=== PATIENT | female | born 1940 | race Caucasian/White ===

== ENCOUNTER 2022-08-31 13:01 | Inpatient (IN) ==
[2022-08-31] MEDS ORDERED: IOPAMIDOL 100 ML BOTTLE IV ONE (13:02)
[2022-08-31] MEDS ORDERED: ONDANSETRON 4 MG/2 ML VIAL IV ONE (13:04)
[2022-08-31] MEDS ORDERED: LACTATED RINGERS 1,000 ML IV ONE ×2 (13:04→15:53)
[2022-08-31 13:31] LABS: POC Calcium, Ionized 1.19 (1.16-1.32); POC Creatinine 1.3 (0.6-1.2); POC Potassium 4.3 (3.3-5.1)
[2022-08-31 14:07] LABS: Basophils # (Auto) 0.03 K/mcL (0.00-0.30); Basophils % (Auto) 0.2 % (0.0-2.0); Eosinophils # (Auto) 0.17 K/mcL (0.00-0.70); Eosinophils % (Auto) 1.3 % (0.0-7.0); Hematocrit 42.2 % (34.1-44.9); Hemoglobin 13.7 g/dL (11.2-15.7); Lymphocytes # (Auto) 0.63 K/mcL (1.50-4.80); Lymphocytes % (Auto) 4.8 % (15.5-49.0); Mean Cell Volume 84.6 fL (80.0-100.0); Mean Corpuscular HGB Conc 32.5 g/dL (31.0-36.0); Mean Platelet Volume 9.9 fL (8.8-12.5); Monocytes # (Auto) 0.47 K/mcL (0.10-0.90); Monocytes % (Auto) 3.6 % (1.0-12.0); Neutrophils % (Auto) 89.5 % (38.0-78.0); Platelet Count 254 K/mcL (140-440); RBC 4.99 M/mcL (3.59-5.38); Red Cell Distribution Width 13.9 % (11.5-14.5); WBC 13.1 K/mcL (4.5-11.0)
[2022-08-31 14:30] LABS: ALT/SGPT 18 U/L (<40); AST/SGOT 49 U/L (<32); Alkaline Phosphatase 136 U/L (39-117); Bilirubin,Direct < 0.2 mg/dL (0-0.3); Bilirubin,Total 0.4 mg/dL (0.1-1.0); Globulin 3.8 gm/dL (2.2-3.7)
--- NOTE | 2022-08-31 15:29 | Cat Scan Report ---
INDICATION: diarrhea lower mary abd pain COMPARISON: None. TECHNIQUE: Axial images were obtained through the abdomen and pelvis. Sagittally and coronally reformatted images. 70 mL Isovue 370 injected intravenously. Oral contrast material was not administered FINDINGS: Lung bases:Negative. No pulmonary parenchymal nodule. No pleural fluid or pericardial fluid. There is mild cardiomegaly. Liver:Low density liver consistent with hepatic steatosis. No focal intrahepatic mass. Liver contour is smooth Gallbladder, bilary:No calcified gallstones. No gallbladder wall thickening. No dilated intra or extrahepatic bile ducts. Spleen:Borderline splenomegaly. Spleen measures 12.5 x 13.5 x 6.0 cm. No focal abnormality. Normal enhancement of splenic and portal veins Pancreas:No pancreatic mass. No peripancreatic abnormality Adrenal glands:Negative Kidneys,ureters,bladder:No solid renal mass. No hydronephrosis. No obstructing or nonobstructing calculi. No hydroureter. No ureteral calculus. No bladder calculus. Bladder wall appears thickened, especially inferiorly. A well-defined discrete mass is not identified but neoplasm is possible. Gastrointestinal:No detectable colonic mass. There is no diverticulitis. No evidence for significant constipation or impaction Negative small bowel. No mechanical small bowel obstruction. No bowel wall thickening. No focal abnormality. Negative stomach and duodenum. No focal abnormality. Appendix: The appendix is negative Vascular: Calcification of the abdominal aorta without abdominal aortic aneurysm. Superior mesenteric artery and celiac trunk are normal. Normal opacification of the inferior mesenteric artery Lymphatic:No retroperitoneal or mesenteric adenopathy Mesentery, peritoneum: No free intraperitoneal fluid. No mesenteric or retroperitoneal mass. No intra-abdominal abscess. Reproductive:Uterus is neutral flexed. There are bilateral ovarian cysts. Right ovarian cyst measures 2.7 cm maximally. Left ovarian cyst measures 4.0 cm maximally. No detectable solid lesions. No localized or free fluid. Pelvic ultrasound is recommended. Musculoskeletal:No lumbar compression fractures. There is multilevel degenerative disc disease. Sacrum is negative. No insufficiency fracture. No pelvic or hip fracture. Tiny umbilical hernia containing only fat IMPRESSION: 1. Bilateral ovarian cysts. This is considered abnormal for age and pelvic ultrasound is recommended 2. Hepatic steatosis 3. Borderline splenomegaly 4. Thickened bladder wall, especially bladder floor. A discrete polypoid mass is not identified but neoplasm is not excluded The exam was performed using radiation dose optimization techniques including, but not limited to, automated exposure control, adjustment of the mA and/or kV according to patient size and use of iterative reconstruction technique. Interpreted and Authenticated by: Milo Schreiber 08/31/22
--- NOTE | 2022-08-31 16:12 | Emergency Department Note ---
HPI General Chief complaint: Nausea/Vomiting/Diarrhea Stated complaint: N/v/d Time Seen by Provider: 08/31/22 13:03 Source: EMS Mode of arrival: EMS Limitations: other History of Present Illness HPI Narrative: Narrative: This is a 81-year-old female with a history of dementia as she is cared for by her ex-. The patient presents with about 2 hours of nausea vomiting and diarrhea. The vomit and diarrhea is reportedly nonbloody. History is obtained from the patient but also her ex- who is at the bedside. Patient was given a small bolus of about 250 cc normal saline and 80 mg of Zofran by EMS. Patient continued to have diarrhea upon arrival. Patient denies any recent antibiotic use. There is no sick contacts there is no concerning food exposures. Ex- is without any symptoms. Related Data Home Medications Medication Instructions Recorded Confirmed nystatin 100,000 unit/gram topical 1 applic topical BID 10/03/19 08/15/22 cream acetaminophen 325 mg tablet 650 mg PO Q4H PRN 01/05/21 08/15/22 aspirin 81 mg tablet,delayed 81 mg PO QDAY 01/05/21 08/31/22 release magnesium oxide 400 mg PO QAM 01/05/21 08/15/22 Lactobacillus rhamnosus GG PO QDAY 05/10/21 08/15/22 [Culturelle] ketoconazole 2 % topical cream 1 applic topical PRN 05/10/21 08/15/22 gabapentin 300 mg capsule 300 mg PO HS 01/05/22 08/31/22 losartan 25 mg tablet 12.5 mg PO 08/31/22 Previous Rx's Medication Instructions Recorded pramipexole 0.25 mg tablet See Rx Instructions .Route 05/25/21 .COMPLEX #120 tabs estradiol 0.01% (0.1 mg/gram) 0.25 g vaginal QDAY #42.5 grams 06/14/21 vaginal cream miconazole nitrate 2 % topical 1 applic topical BID PRN interigo 06/15/21 cream (Emiliano Antifungal) 3 months #42.5 grams Trelegy Ellipta 200 mcg-62.5 1 inh inhalation Q24H #60 ea 04/11/22 mcg-25 mcg powder for inhalation (lyaikcyqtke-lhktolalb-rdulaobw) albuterol sulfate 90 mcg/actuation 2 puff inhalation Q6H PRN 04/11/22 aerosol inhaler (ProAir HFA) shortness of breath or wheezing #8.5 grams docusate sodium 100 mg capsule 100 mg PO BID #60 caps 05/22/22 (Dulcolax Stool Softener (docusate)) polyethylene glycol 3350 17 4 g PO ONCE #510 grams 05/22/22 gram/dose oral powder (Miralax) amitriptyline 50 mg tablet 50 mg PO QHS #90 tabs 06/19/22 montelukast 10 mg tablet 10 mg PO QPM #90 tabs 07/11/22 pravastatin 10 mg tablet 10 mg PO QDAY #90 tabs 07/11/22 Allergies Allergy/AdvReac Type Severity Reaction Status Date / Time Penicillins Allergy Unknown Unknown Verified 08/31/22 21:36 Sulfa (Sulfonamide Allergy Unknown Unknown Verified 08/31/22 21:36 Antibiotics) Review of Systems ROS ROS Narrative: Narrative: All systems ED: reviewed and negative except as stated. PFSH Narrative Patient History Narrative: Narrative: Medical/Surgical/Family History All Active Problems (Updated 09/01/22 @ 01:22 by Aryan Grajeda MD) Gastroenteritis (Acute) Regular sinus tachycardia (Acute) Constipation (Acute) Asthma-COPD overlap syndrome (Chronic) Recurrent urinary tract infection (Acute) Muscle weakness (Acute) Dizziness (Acute) Dementia (Chronic) Chronic retention of urine (Chronic) Spinal stenosis in cervical region (Chronic) Hypomagnesemia (Chronic) Bilateral leg cramps (Chronic) Muscle pain (Chronic) Abnormal kidney function study (Chronic) Post-menopausal (Chronic) Dementia (Chronic) Hyperlipidemia (Chronic) Type 2 diabetes mellitus (Chronic) Risk for falls (Chronic) Peripheral vascular disease (Chronic) Hypertensive disorder (Chronic) Urine retention (Chronic) Bacteriuria (Chronic) Multiple sclerosis (Chronic) Restless leg syndrome (Chronic) Benign essential HTN (Chronic) Sensation of cold in lower extremity (Chronic) Candidal intertrigo (Chronic) Eczematous dermatitis (Chronic) Kidney disease, chronic, stage III (GFR 30-59 ml/min) (Chronic) Encounter for immunization (Chronic) Urinary frequency (Chronic) UTI (urinary tract infection) (Chronic) Lower extremity edema (Chronic) Discoloration of skin of toe (Chronic) History of seizures (Chronic 06/30/16) Asthma (Chronic) Hay fever (Chronic) Nervousness (Chronic) Medical History Abnormal kidney function study Asthma Asthma-COPD overlap syndrome Bacteriuria Benign essential HTN Bilateral leg cramps Candidal intertrigo Chronic retention of urine Dementia Discoloration of skin of toe Eczematous dermatitis Encounter for immunization Hay fever History of seizures (06/30/16) Life support to stop seizure Hyperlipidemia Hypertensive disorder Hypomagnesemia Kidney disease, chronic, stage III (GFR 30-59 ml/min) Lower extremity edema Multiple sclerosis Muscle pain Nervousness Peripheral vascular disease Post-menopausal Restless leg syndrome Risk for falls Sensation of cold in lower extremity Spinal stenosis in cervical region Type 2 diabetes mellitus Urinary frequency Urine retention UTI (urinary tract infection) Surgical History History of tonsillectomy and adenoidectomy Family History Grandmother Chronic mental illness Maternal Mother , Age 89 Heart disease Essential hypertension Social History Smoking Status: Former smoker Alcohol Intake Frequency: does not drink Substance Use: does not use Exam Narrative Narrative: Narrative: Vital signs noted General: Awake. Alert. No distress. HEENT: NCAT PERRL EOMI. No conjunctivitis. Membranes moist. Neck: Supple, trachea midline Cardiovascular: Tachycardic. No murmur. No rubs. No gallops. Respiratory: No respiratory distress. Breath sounds equal. Lungs clear. Gastrointestinal: Soft. No tenderness Musculoskeletal: No pain. No soft tissue swelling. Good ROM. No signs injury Skin: Warm. Dry. No rash Neurologic: Alert and oriented x3 moves all extremities equally and fully, speech is fluent face is symmetric General Limitations: other Course Vital Signs Vital signs: Vital Signs Temperature 99.4 F H 08/31/22 13:02 Pulse Rate 118 H 08/31/22 13:02 Respiratory Rate 18 08/31/22 13:02 Blood Pressure 113/82 08/31/22 13:02 Pulse Oximetry (%) 94 08/31/22 13:02 Oxygen Delivery Method Room Air 08/31/22 13:02 Temperature 99.0 F 08/31/22 23:10 Pulse Rate 105 H 08/31/22 23:10 Respiratory Rate 20 08/31/22 23:10 Blood Pressure 112/67 08/31/22 23:10 Pulse Oximetry (%) 97 08/31/22 23:10 Oxygen Delivery Method Room Air 08/31/22 23:10 MDM MDM Narrative Medical decision making narrative: Narrative: Patient presents to the emergency department with nausea vomiting diarrhea. She is tachycardic upon arrival she is otherwise conversant does have a history of dementia. Differential diagnosis includes but is not limited to gastroenteritis, C. difficile although no real exposures, food poisoning. Patient was given 2 L of IV fluid she is given Zofran nursing staff cleaned. CBC does show slight leukocytosis with left shift. CMP shows normal sodium BUN is 23 and creatinine is 1.3 it does look like patient has chronic kidney disease. CT scan per my interpretation does not reveal any acute surgical process in the abdomen pelvis however patient was noted by radiology to have bilateral ovarian cysts and thickened bladder wall. Findings concerning for neoplasm. These findings were made known to the patient's ex- who helps care for her. Ultimately he has strong concerns about being able to care for her at baseline and given her current state of diarrhea he has his own health issues and has difficulty cleaning her up and transferring her to the toilet. I did speak with the hospitalist who would be willing to observe the patient it was felt that patient did not necessarily meet admission criteria. My biggest concern was patient's persistent tachycardia and diarrhea. EKG per my interpretation shows sinus tachycardia without acute ischemia. Did review patient's prior most recent outpatient note heart rate at that time was in the 70s. I did talk with the ex- and he states that the patient has previously lived at [facility] he would be okay with her being transferred to a care facility. Lab Data 08/31/22 13:27 Labs: Lab Results 08/31/22 08/31/22 08/31/22 Range/Units 13:27 13:27 13:28 WBC 13.1 H (4.5-11.0) K/mcL RBC 4.99 (3.59-5.38) M/mcL Hgb 13.7 (11.2-15.7) g/dL Hct 42.2 (34.1-44.9) % POC Hct 43.0 (36-48) MCV 84.6 (80.0-100.0) fL MCH 27.5 (26.0-34.0) pg MCHC 32.5 (31.0-36.0) g/dL RDW 13.9 (11.5-14.5) % Plt Count 254 (140-440) K/mcL MPV 9.9 (8.8-12.5) fL Immature Gran % (Auto) 0.6 H (0.0-0.5) % Neut % (Auto) 89.5 H (38.0-78.0) % Lymph % (Auto) 4.8 L (15.5-49.0) % [place] % (Auto) 3.6 (1.0-12.0) % Eos % (Auto) 1.3 (0.0-7.0) % Baso % (Auto) 0.2 (0.0-2.0) % Lymph # (Auto) 0.63 L (1.50-4.80) K/mcL [place] # (Auto) 0.47 (0.10-0.90) K/mcL Eos # (Auto) 0.17 (0.00-0.70) K/mcL Baso # (Auto) 0.03 (0.00-0.30) K/mcL Immature Gran # 0.08 H (0.00-0.05) K/mcl Absolute Neutrophils 11.74 H (1.80-8.00) K/mcL POC Sodium 141 (133-145) POC Potassium 4.3 (3.3-5.1) POC Chloride 101 (96-108) POC Total CO2 26.0 (22-30) POC BUN 23 H (6-20) POC Creatinine 1.3 H (0.6-1.2) POC Glucose 207 H (70-105) POC WB Ioniz Calcium 1.19 (1.16-1.32) Total Bilirubin 0.4 (0.1-1.0) mg/dL Direct Bilirubin < 0.2 (0-0.3) mg/dL AST 49 H (<32) U/L ALT 18 (<40) U/L Alkaline Phosphatase 136 H (39-117) U/L Total Protein 7.8 (5.9-8.4) gm/dL Albumin 4.0 (3.2-5.2) gm/dL Globulin 3.8 H (2.2-3.7) gm/dL Lipase 33 (7-60) U/L Urine Color Urine Appearance (Clear) Urine pH (5.0-9.0) Ur Specific [place] (1.000-1.035) Urine Protein (Negative) mg/dL Urine Glucose (UA) (Negative) mg/dL Urine Ketones (Negative) mg/dL Urine Occult Blood (Negative) marsha/mcL Urine Nitrate (Negative) Urine Bilirubin (Negative) mg/dL Urine Urobilinogen mg/dL Ur Leukocyte Esterase (Negative) /uL Urine RBC (0-3) /hpf Urine WBC (0-4) /hpf Ur Squamous Epith Cells (0-4) /hpf Urine Bacteria (0) /hpf Urine Mucus (None) /hpf Ur Culture Indicated? 08/31/22 Range/Units 17:30 WBC (4.5-11.0) K/mcL RBC (3.59-5.38) M/mcL Hgb (11.2-15.7) g/dL Hct (34.1-44.9) % POC Hct (36-48) MCV (80.0-100.0) fL MCH (26.0-34.0) pg MCHC (31.0-36.0) g/dL RDW (11.5-14.5) % Plt Count (140-440) K/mcL MPV (8.8-12.5) fL Immature Gran % (Auto) (0.0-0.5) % Neut % (Auto) (38.0-78.0) % Lymph % (Auto) (15.5-49.0) % [place] % (Auto) (1.0-12.0) % Eos % (Auto) (0.0-7.0) % Baso % (Auto) (0.0-2.0) % Lymph # (Auto) (1.50-4.80) K/mcL [place] # (Auto) (0.10-0.90) K/mcL Eos # (Auto) (0.00-0.70) K/mcL Baso # (Auto) (0.00-0.30) K/mcL Immature Gran # (0.00-0.05) K/mcl Absolute Neutrophils (1.80-8.00) K/mcL POC Sodium (133-145) POC Potassium (3.3-5.1) POC Chloride (96-108) POC Total CO2 (22-30) POC BUN (6-20) POC Creatinine (0.6-1.2) POC Glucose (70-105) POC WB Ioniz Calcium (1.16-1.32) Total Bilirubin (0.1-1.0) mg/dL Direct Bilirubin (0-0.3) mg/dL AST (<32) U/L ALT (<40) U/L Alkaline Phosphatase (39-117) U/L Total Protein (5.9-8.4) gm/dL Albumin (3.2-5.2) gm/dL Globulin (2.2-3.7) gm/dL Lipase (7-60) U/L Urine Color Lt. yellow Urine Appearance Cloudy A (Clear) Urine pH 5.5 (5.0-9.0) Ur Specific [place] 1.015 (1.000-1.035) Urine Protein 30 A (Negative) mg/dL Urine Glucose (UA) 250 A (Negative) mg/dL Urine Ketones Trace A (Negative) mg/dL Urine Occult Blood Large A (Negative) marsha/mcL Urine Nitrate Negative (Negative) Urine Bilirubin Negative (Negative) mg/dL Urine Urobilinogen Normal mg/dL Ur Leukocyte Esterase Moderate A (Negative) /uL Urine RBC 41 H (0-3) /hpf Urine WBC > 182 H (0-4) /hpf Ur Squamous Epith Cells 0 (0-4) /hpf Urine Bacteria None (0) /hpf Urine Mucus Mod A (None) /hpf Ur Culture Indicated? yes ED POC Tests ED POC Tests: YANG - Influenza A Negative YANG - Influenza B Negative YANG - SARS Antigen Negative Discharge Plan Patient/Caregiver Discharge Instructions Pt seen by [facility] HELPER/PA only: No Clinical Impression: Gastroenteritis, Regular sinus tachycardia Patient Disposition: Xfer As Inpt ([facility]) Condition: Fair Discharge Date/Time: 08/31/22 20:50
--- NOTE | 2022-08-31 17:48 | Internal Med History&Physical ---
HPI History of Present Illness Patient information: Note initiated : 08/31/22 at 5:43 pm Service Date, if different from initiated Date: [] Patient: Sharon Pierce a 81 y/o F admitted on for N/v/d. Chief Complaint: [] History of present illness: Ms. Pierce is a 81 year old F Patient is a poor historian given her dementia and most of the history is obtained from the chart. Sounds like she has had 3 days of nausea vomiting diarrhea most notably the diarrhea. Her family members unable to care for her at home. In the ED she was seen and evaluated and had a CT abdomen pelvis which showed no acute pathology but did show some bilateral ovarian cyst considered abnormal for her age and pelvic ultrasound was recommended. She was tachycardic at 120 but blood pressure was stable. Other vital signs are stable. Mild leukocytosis of 13. No lactic acidosis. Renal function Near baseline. C. difficile negative in the ED. Review of Systems: Pertinent positives as above. Denies headache/fever/chills/chest or abdominal pain/cough/dyspnea. Remaining 10 point review of system reviewed negative PFSH PFSH All Active Problems (Updated 05/22/22 @ 09:08 by FELIZ Lundberg) Constipation (Acute) Asthma-COPD overlap syndrome (Chronic) Recurrent urinary tract infection (Acute) Muscle weakness (Acute) Dizziness (Acute) Dementia (Chronic) Chronic retention of urine (Chronic) Spinal stenosis in cervical region (Chronic) Hypomagnesemia (Chronic) Bilateral leg cramps (Chronic) Muscle pain (Chronic) Abnormal kidney function study (Chronic) Post-menopausal (Chronic) Dementia (Chronic) Hyperlipidemia (Chronic) Type 2 diabetes mellitus (Chronic) Risk for falls (Chronic) Peripheral vascular disease (Chronic) Hypertensive disorder (Chronic) Urine retention (Chronic) Bacteriuria (Chronic) Multiple sclerosis (Chronic) Restless leg syndrome (Chronic) Benign essential HTN (Chronic) Sensation of cold in lower extremity (Chronic) Candidal intertrigo (Chronic) Eczematous dermatitis (Chronic) Kidney disease, chronic, stage III (GFR 30-59 ml/min) (Chronic) Encounter for immunization (Chronic) Urinary frequency (Chronic) UTI (urinary tract infection) (Chronic) Lower extremity edema (Chronic) Discoloration of skin of toe (Chronic) History of seizures (Chronic 06/30/16) Asthma (Chronic) Hay fever (Chronic) Nervousness (Chronic) Medical History Abnormal kidney function study Asthma Asthma-COPD overlap syndrome Bacteriuria Benign essential HTN Bilateral leg cramps Candidal intertrigo Chronic retention of urine Dementia Discoloration of skin of toe Eczematous dermatitis Encounter for immunization Hay fever History of seizures (06/30/16) Life support to stop seizure Hyperlipidemia Hypertensive disorder Hypomagnesemia Kidney disease, chronic, stage III (GFR 30-59 ml/min) Lower extremity edema Multiple sclerosis Muscle pain Nervousness Peripheral vascular disease Post-menopausal Restless leg syndrome Risk for falls Sensation of cold in lower extremity Spinal stenosis in cervical region Type 2 diabetes mellitus Urinary frequency Urine retention UTI (urinary tract infection) Surgical History History of tonsillectomy and adenoidectomy Family History Grandmother Chronic mental illness Maternal Mother , Age 89 Heart disease Essential hypertension Social History marital status: education level: high school occupational status: retired occupation: Office Work smoking status: Former smoker quit date: 07/30/92 pack-years: 30 smoking status stop date: 07/30/93 alcohol intake frequency: does not drink substance use type: does not use additional history: 3 children MEDS/ALLERGIES Home Medications and Allergies Home Medications Medication Instructions Recorded Confirmed Type nystatin 100,000 unit/gram topical 1 applic topical BID 10/03/19 08/15/22 History cream acetaminophen 325 mg tablet 650 mg PO Q4H PRN 01/05/21 08/15/22 History aspirin 81 mg tablet,delayed 81 mg PO QDAY 01/05/21 08/15/22 History release magnesium oxide 400 mg PO QAM 01/05/21 08/15/22 History Lactobacillus rhamnosus GG PO QDAY 05/10/21 08/15/22 History [Culturelle] ketoconazole 2 % topical cream 1 applic topical PRN 05/10/21 08/15/22 History pramipexole 0.25 mg tablet See Rx Instructions .Route 05/25/21 08/15/22 Rx .COMPLEX #120 tabs estradiol 0.01% (0.1 mg/gram) 0.25 g vaginal QDAY #42.5 grams 06/14/21 08/15/22 Rx vaginal cream miconazole nitrate 2 % topical 1 applic topical BID PRN interigo 06/15/21 08/15/22 Rx cream (Emiliano Antifungal) 3 months #42.5 grams gabapentin 300 mg capsule 300 mg PO HS 01/05/22 08/15/22 History Trelegy Ellipta 200 mcg-62.5 1 inh inhalation Q24H #60 ea 04/11/22 08/15/22 Rx mcg-25 mcg powder for inhalation (qcvatohxlif-xemlyytxi-webaxcrj) albuterol sulfate 90 mcg/actuation 2 puff inhalation Q6H PRN 04/11/22 08/31/22 Rx aerosol inhaler (ProAir HFA) shortness of breath or wheezing #8.5 grams docusate sodium 100 mg capsule 100 mg PO BID #60 caps 05/22/22 08/15/22 Rx (Dulcolax Stool Softener (docusate)) polyethylene glycol 3350 17 4 g PO ONCE #510 grams 05/22/22 08/15/22 Rx gram/dose oral powder (Miralax) amitriptyline 50 mg tablet 50 mg PO QHS #90 tabs 06/19/22 08/31/22 Rx montelukast 10 mg tablet 10 mg PO QPM #90 tabs 07/11/22 08/15/22 Rx pravastatin 10 mg tablet 10 mg PO QDAY #90 tabs 07/11/22 08/15/22 Rx Allergies Allergy/AdvReac Type Severity Reaction Status Date / Time Penicillins AdvReac unknown Verified 08/31/22 13:04 Sulfa (Sulfonamide AdvReac unknown Verified 08/31/22 13:04 Antibiotics) EXAM Constitutional Vitals: Temp Pulse Resp BP Pulse Ox O2 Del Method 99.4 F H 123 H 18 100/66 94 Room Air 08/31/22 13:02 08/31/22 16:16 08/31/22 16:31 08/31/22 16:31 08/31/22 13:02 08/31/22 13:02 DATA Data Completed and Pending Labs: Labs from last 24 hours 08/31/22 08/31/22 08/31/22 14:07 13:28 13:27 WBC RBC Hgb Hct POC Hct 43.0 MCV MCH MCHC RDW Plt Count MPV Immature Gran % (Auto) Neut % (Auto) Lymph % (Auto) [place] % (Auto) Eos % (Auto) Baso % (Auto) Lymph # (Auto) [place] # (Auto) Eos # (Auto) Baso # (Auto) Immature Gran # Absolute Neutrophils POC Sodium 141 POC Potassium 4.3 POC Chloride 101 POC Total CO2 26.0 POC BUN 23 H POC Creatinine 1.3 H POC Glucose 207 H POC WB Ioniz Calcium 1.19 Total Bilirubin 0.4 Direct Bilirubin < 0.2 AST 49 H ALT 18 Alkaline Phosphatase 136 H Total Protein 7.8 Albumin 4.0 Globulin 3.8 H Lipase 33 O & P Trichrome Stain Pending 08/31/22 13:27 WBC 13.1 H RBC 4.99 Hgb 13.7 Hct 42.2 POC Hct MCV 84.6 MCH 27.5 MCHC 32.5 RDW 13.9 Plt Count 254 MPV 9.9 Immature Gran % (Auto) 0.6 H Neut % (Auto) 89.5 H Lymph % (Auto) 4.[address] [place] % (Auto) 3.6 Eos % (Auto) 1.3 Baso % (Auto) 0.2 Lymph # (Auto) 0.[address] 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
[2022-08-31 18:42] LABS: Appearance,Urine CLOUDY (Clear); Bilirubin,Urine NEGATIVE (Negative); Color,Urine LT. YELLOW; Culture Indicated,Urine yes; Glucose,Urine (UA) 250 mg/dL (Negative); Ketones,Urine TRACE mg/dL (Negative); Leukocyte Esterase,Urine MODERATE /uL (Negative); Mucus,Urine MOD /hpf; Nitrate,Urine NEGATIVE (Negative); PH,Urine 5.5 (5.0-9.0); Protein,Urine 30 mg/dL (Negative); Specific Gravity,Urine 1.015 (1.000-1.035); Urine Blood LARGE ery/mcL (Negative); Urine RBC 41 /hpf (0-3); Urine Squamous Epithelial Cell 0 /hpf (0-4); Urine WBC > 182 /hpf (0-4); Urobilinogen,Urine Normal
[2022-08-31] MEDS ORDERED: 0.9 % SODIUM CHLORIDE 1,000 ML IV SCH (21:11)
[2022-08-31] MEDS ORDERED: ONDANSETRON 4 MG/2 ML VIAL IV PRN (21:11)
[2022-08-31] MEDS ORDERED: IPRATROPIUM/ALBUTEROL 3 ML AMPUL.NEB NEB PRN (21:11)
[2022-08-31] MEDS ORDERED: POTASSIUM CHLORIDE 20 MEQ TABLET PO PRN ×2 (21:11)
[2022-08-31] MEDS ORDERED: DEXTROSE 50% 50 ML VIAL IV PRN (21:11)
[2022-08-31] MEDS ORDERED: POTASSIUM CHLORIDE 40 MEQ in DEXTROSE 5% IN WATER 500 ML IV PRN (21:11)
[2022-08-31] MEDS ORDERED: MAGNESIUM SULFATE 2 GM/50 ML BAG IV PRN (21:11)
[2022-08-31] MEDS ORDERED: DEXTROSE 31 GM ORAL.SUSP PO PRN (21:11)
[2022-08-31] MEDS: cefTRIAXone 1 GM VIAL IV SCH (23:07)
[2022-09-01] MEDS: 0.9 % SODIUM CHLORIDE 10 ML SYRINGE IV SCH ×4 (00:27→20:37)
[2022-09-01] MEDS: INSULIN LISPRO 1 UNIT/0.01 ML UNIT SQ SCH ×5 (00:52→20:32)
[2022-09-01 07:25] LABS: Basophils # (Auto) 0.06 K/mcL (0.00-0.30); Basophils % (Auto) 0.5 % (0.0-2.0); Eosinophils % (Auto) 3.9 % (0.0-7.0); Hematocrit 39.6 % (34.1-44.9); Hemoglobin 12.9 g/dL (11.2-15.7); Lymphocytes % (Auto) 24.2 % (15.5-49.0); Mean Cell Volume 85.2 fL (80.0-100.0); Mean Corpuscular HGB Conc 32.6 g/dL (31.0-36.0); Mean Platelet Volume 10.8 fL (8.8-12.5); Monocytes # (Auto) 1.06 K/mcL (0.10-0.90); Monocytes % (Auto) 8.3 % (1.0-12.0); Neutrophils % (Auto) 61.9 % (38.0-78.0); Platelet Count 222 K/mcL (140-440); RBC 4.65 M/mcL (3.59-5.38); Red Cell Distribution Width 14.1 % (11.5-14.5); WBC 12.8 K/mcL (4.5-11.0)
--- NOTE | 2022-09-01 07:42 | Internal Med Progress Note ---
SUBJECTIVE Subjective Patient information: Note initiated : 09/01/22 at 7:40 am Service Date, if different from initiated Date: [] Patient: Sharon Pierce a 81 y/o F admitted on 08/31/22 for N/v/d. Chief Complaint: [] Interval history: History of present illness: Ms. Pierce is a 81 year old F Patient is a poor historian given her dementia and most of the history is obtained from the chart. Sounds like she has had 3 days of nausea vomiting diarrhea most notably the diarrhea. Her family members unable to care for her at home. In the ED she was seen and evaluated and had a CT abdomen pelvis which showed no acute pathology but did show some bilateral ovarian cyst considered abnormal for her age and pelvic ultrasound was recommended. She was tachycardic at 120 but blood pressure was stable. Other vital signs are stable. Mild leukocytosis of 13. No lactic acidosis. Renal function Near baseline. C. difficile negative in the ED. 2/3 Still having liquid brown stools. Pending stool studies. Leukocytosis present. UTI noted on UA from yesterday. Pelvic ultrasound shows bilateral cysts no solid masses. Chronic kidney disease with elevated creatinine. Awaiting home medication reconciliation. Review of Systems: denies headache/fever/chills/nausea/vomiting/chest or abdominal pain/cough/dyspnea. Otherwise see above. Constitutional Vitals: Vital Signs Temp Pulse Resp BP Pulse Ox O2 Del Method 97.9 F 96 H 17 97/56 97 Room Air 09/01/22 03:13 09/01/22 03:13 09/01/22 03:13 09/01/22 03:13 08/31/22 23:10 09/01/22 03:13 Period Temp Pulse Resp BP Sys/Roberts Pulse Ox O2 Del Method O2 Flow Rate Last 24 Hr 97.9 F-100.3 F 25-123 13-40 92-144/51-106 94-97 Room Air-Room Air Intake and Output 08/31/22 09/01/22 09/01/22 19:59 03:59 11:59 Intake Total 1800 50 Balance 1800 50 Weight 68.492 kg 68.748 kg Intake & Output: Intake & Output 08/31/22 09/01/22 09/01/22 19:59 03:59 11:59 Intake Total 1800 50 Balance 1800 50 Weight 68.492 kg 68.748 kg Intake: IV 1800 Lactated Ringers 1,000 ml @ 1800 Wide Open IV BOL[facility] ONE Rx#: [id number] Oral 50 Other: Urine Appearance Fem Cath Cloudy Urine Color Fem Cath Yellow Stool Size Moderate Stool Color Brown Brown Stool Consistency Liquid Liquid # Bowel Movements 4 Exam: General: Alert, Awake, No acute Distress Eyes/N/T: EOMI, Head/Neck: neck supple, CV: RRR, 3/6SM, Pulm: Clear b/l, no wheezing/rhonchi/rales Abd: soft, nontender, +BS x4 Ext: no clubbing/cyanosis, mild LLE edema Neuro: Alert, no focal deficits, moves all extremities, Skin: warm/dry OBJ DATA Labs 09/01/22 06:15 09/01/22 06:15 Labs: Abnormal Lab Results 09/01/22 08/31/22 08/31/22 06:15 17:30 13:28 WBC 12.8 H Immature Gran % (Auto) 1.2 H Neut % (Auto) Lymph % (Auto) Lymph # (Auto) [place] # (Auto) 1.06 H Immature Gran # 0.15 H Absolute Neutrophils POC BUN 23 H POC Creatinine 1.3 H POC Glucose 207 H AST Alkaline Phosphatase Globulin Urine Appearance Cloudy A Urine Protein 30 A Urine Glucose (UA) 250 A Urine Ketones Trace A Urine Occult Blood Large A Ur Leukocyte Esterase Moderate A Urine RBC 41 H Urine WBC > 182 H Urine Mucus Mod A 08/31/22 08/31/22 13:27 13:27 WBC 13.1 H Immature Gran % (Auto) 0.6 H Neut % (Auto) 89.5 H Lymph % (Auto) 4.8 L Lymph # (Auto) 0.63 L [place] # (Auto) Immature Gran # 0.08 H Absolute Neutrophils 11.74 H POC BUN POC Creatinine POC Glucose AST 49 H Alkaline Phosphatase 136 H Globulin 3.8 H Urine Appearance Urine Protein Urine Glucose (UA) Urine Ketones Urine Occult Blood Ur Leukocyte Esterase Urine RBC Urine WBC Urine Mucus Meds: Medications Acetaminophen (Acetaminophen 325 Mg Tablet) 650 mg PO Q6HP PRN; Protocol PRN Reason: Per Pain Protocol/Fever > 101 Albuterol/Ipratropium (Ipratropium/Albuterol 3 Ml Ampul.Neb) 3 ml NEB Q4HP PRN PRN Reason: Shortness Of Breath Ceftriaxone Sodium (Ceftriaxone 1 Gm Vial) 1 gm IV Q24H [facility]; Protocol Last Admin: 08/31/22 23:07 Dose: 1 gm Dextrose (Dextrose 50% 50 Ml Vial) 0 ml IV UD PRN PRN Reason: Per Sliding Scale Diagnostic Test (Pha) (Accu-Chek 1 Each Strip) 1 each FS [facility] Last Admin: 09/01/22 00:51 Dose: 1 each Enoxaparin Sodium (Enoxaparin 40 Mg/0.4 Ml Syringe) 40 mg SQ DAILY [facility] Glucose (Dextrose 31 Gm Oral.Susp) 15 gm PO PRN PRN PRN Reason: Hypoglycemia Potassium Chloride 40 meq/ (Dextrose) 520 mls @ 130 mls/hr IV UD PRN PRN Reason: Potassium < 3 Magnesium Sulfate (Magnesium Sulfate) 2 gm in 50 mls @ 50 mls/hr IV UD PRN PRN Reason: Magnesium </= 1.6 Sodium Chloride (Sodium Chloride 0.9%) 1,000 mls @ 75 mls/hr IV .[id number] [facility] Stop: 09/01/22 10:30 Last Admin: 08/31/22 21:36 Dose: 75 mls/hr Insulin Human Lispro (Insulin Lispro 1 Unit/0.01 Ml Unit) 0 unit SQ [facility]; Protocol Last Admin: 09/01/22 00:52 Dose: 4 units Ondansetron HCl (Ondansetron 4 Mg/2 Ml Vial) 4 mg IV Q4HP PRN PRN Reason: Nausea And Vomiting Potassium Chloride (Potassium Chloride 20 Meq Tablet) 40 meq PO UD PRN PRN Reason: Potssium is 3-3.5 Potassium Chloride (Potassium Chloride 20 Meq Tablet) 40 meq PO UD PRN PRN Reason: Potassium < 3 Sodium Chloride (0.9 % Sodium Chloride 10 Ml Syringe) 10 ml IV Q8 [facility] Last Admin: 09/01/22 00:27 Dose: Not Given A/P Narrative A/P Narrative: A: *Gastroenteritis(Diarrhea and N/V): -cdiff neg *UTI: *Sinus Tach: improving *Sepsis: leukocytosis/tachycardia/soft BP *Volume depletion: *Dementia: *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 *COPD( ): *HTN/HLD: *Incidental bilateral ovarian cysts: pelvic US revealing cysts, no solid mass, f/u US outpt 3-6mos *Generalized weakness/deconditioning/inability to care for self P: -IVF -Monitor vitals, BP closely -stool studies pending -rocephin, pending UC -SSI -Home medication reconciliation -PT/OT -CM for placement needs -ppx: Lovenox DNR Time Spent With Patient Time: Total time spent is greater than 50% in coordination of care (as documented) at patient's floor/unit and/or counseling patient: Subsequent: Total time with patient: 50 - 65 Minutes QUALITY VTE Deep Vein Thrombosis/Pulmonary Embolism Present on Admission: No
--- NOTE | 2022-09-01 08:02 | Ultrasound Report ---
INDICATION: b/l ovarian cysts TECHNIQUE: Transabdominal pelvic ultrasound. Grayscale and color flow Doppler spectral imaging COMPARISON: None. FINDINGS: Uterus: Uterus is anteverted. Uterus measures 6.1 x 4.2 x 5.1 cm. No myometrial mass Endometrium:Endometrium is not well visualized. No detectable mass. No endometrial fluid Right Ovary:Right ovary measures 4.0 x 2.6 x 2.7 cm. There is a right ovarian cyst. This measures 2.4 x 2.2 x 2.4 cm. No solid mass identified. Left Ovary:Left ovary measures 3.9 x 3.2 x 3.5 cm. There is a 3.5 cm left ovarian cyst. No solid mass. Cysts measuring greater than 3 cm in a postmenopausal patient are typically benign. 3-6 month ultrasound follow-up is recommended [place]: No free pelvic fluid IMPRESSION: 1. Bilateral ovarian cysts. No solid mass 2. 3-6 month sonographic follow-up recommended Interpreted and Authenticated by: Milo Schreiber 09/01/22
[2022-09-01 08:32] LABS: ALT/SGPT 21 U/L (<40); AST/SGOT 89 U/L (<32); Albumin 3.4 gm/dL (3.2-5.2); Albumin/Globulin Ratio 1.1 (1.0-2.3); Alkaline Phosphatase 92 U/L (39-117); Bilirubin,Direct < 0.2 mg/dL (0-0.3); Bilirubin,Total 0.4 mg/dL (0.1-1.0); Blood Urea Nitrogen 20 mg/dL (8-23); Calcium 8.5 mg/dL (8.6-10.4); Carbon Dioxide 24 mmol/L (22-30); Chloride 102 mmol/L (96-108); Globulin 3.2 gm/dL (2.2-3.7); Glomerular Filtration Rate 35; Glucose 108 mg/dL (70-105); Lactate Dehydrogenase 266 U/L (135-225); Phosphorous 2.9 mg/dL (2.5-4.5); Triglycerides 119 mg/dL (<150); Uric Acid 7.5 mg/dL (2.5-8.0)
[2022-09-01] MEDS: ASPIRIN 81 MG TAB.CHEW PO SCH (10:03)
[2022-09-01] MEDS: ENOXAPARIN 40 MG/0.4 ML SYRINGE SQ SCH (10:03)
[2022-09-01] MEDS: Fluticasone-Umeclidinium-Vilanterol [Trelegy Ellipta] Inhaler INH SCH (10:30)
[2022-09-01] MEDS: cefTRIAXone 1 GM VIAL IV SCH (10:30)
--- NOTE | 2022-09-01 13:53 | Discharge Summary ---
Discharge Provider Provider IMPORTANT FOLLOW-UP INFORMATION FOR PCP: Patient information: Note initiated : 09/01/22 at 1:52 pm Service Date, if different from initiated Date: [] Patient: Sharon Pierce a 81 y/o F admitted on 09/01/22 for N/v/d. Chief Complaint: [] Date of admission: 09/01/22 07:48 Primary care physician: Rosaura Andrews Consults: 08/31/22 Consult to Physician [CONS] Stat Comment: Consulting Provider: Benjamin Grubbs Reason For Exam: Physician to Consult COURSE Hospital Course Hospital course: History of present illness: Ms. Pierce is a 81 year old F Patient is a poor historian given her dementia and most of the history is obtained from the chart. Sounds like she has had 3 days of nausea vomiting diarrhea most notably the diarrhea. Her family members unable to care for her at home. In the ED she was seen and evaluated and had a CT abdomen pelvis which showed no acute pathology but did show some bilateral ovarian cyst considered abnormal for her age and pelvic ultrasound was recommended. She was tachycardic at 120 but blood pressure was stable. Other vital signs are stable. Mild leukocytosis of 13. No lactic acidosis. Renal function Near baseline. C. difficile negative in the ED. 2/3 Still having liquid brown stools. Pending stool studies. Leukocytosis present. UTI noted on UA from yesterday. Pelvic ultrasound shows bilateral cysts no solid masses. Chronic kidney disease with elevated creatinine. Awaiting home medication reconciliation. 2/4 Patient appears to be in good spirits today. No diarrhea overnight. at bedside. Leukocytosis resolved. Pending urine and stool cultures. 2/5 Patient impulsive and agitated at times yesterday. Restless last night. Calm and resting this morning. Pleasant this morning. Diarrhea much improved. Bowel movements now soft. Urine culture with Enterococcus and Aerococcus. 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 *COPD( ): *HTN/HLD: *CKDIIIb: *Incidental bilateral ovarian cysts: pelvic US revealing cysts, no solid mass, f/u US outpt 3-6mos *Generalized weakness/deconditioning/inability to care for self P: -abx for uti Discharge diagnosis: Gastroenteritis UTI sepsis Secondary discharge diagnosis: Volume depletion tachycardia dementia diabetes COPD hypertension ovarian cysts Time Spent with Patient Time attestation: Total time spent providing and/or coordinating discharge services: Time spent: Greater than 30 minutes EXAM Constitutional Vitals: Temp Pulse Resp BP Pulse Ox O2 Del Method 97.3 F 77 18 107/69 98 Room Air 09/01/22 12:00 09/01/22 12:00 09/01/22 12:00 09/01/22 12:00 09/01/22 12:00 09/01/22 12:00 Discharge Data Data Completed and Pending Labs on day of discharge: Labs from last 24 hours 09/01/22 09/01/22 08/31/22 06:15 06:15 17:30 WBC 12.8 H RBC 4.65 Hgb 12.9 Hct 39.6 MCV 85.2 MCH 27.7 MCHC 32.6 RDW 14.1 Plt Count 222 MPV 10.8 Immature Gran % (Auto) 1.2 H Neut % (Auto) 61.9 Lymph % (Auto) 24.2 [place] % (Auto) 8.3 Eos % (Auto) 3.9 Baso % (Auto) 0.5 Lymph # (Auto) 3.10 [place] # (Auto) 1.06 H Eos # (Auto) 0.50 Baso # (Auto) 0.06 Immature Gran # 0.15 H Absolute Neutrophils 7.94 Sodium 140 Potassium 4.2 Chloride 102 Carbon Dioxide 24 Anion Gap 14.0 BUN 20 Creatinine 1.4 H GFR Calculation 35 Glucose 108 H Uric Acid 7.5 Calcium 8.5 L Phosphorus 2.9 Magnesium 1.7 Total Bilirubin 0.4 Direct Bilirubin < 0.2 GGT 33 AST 89 H ALT 21 Alkaline Phosphatase 92 Lactate Dehydrogenase 266 H Total Protein 6.6 Albumin 3.4 Globulin 3.2 Albumin/Globulin Ratio 1.1 Triglycerides 119 Lipase Urine Color Lt. yellow Urine Appearance Cloudy A Urine pH 5.5 Ur Specific [place] 1.015 Urine Protein 30 A Urine Glucose (UA) 250 A Urine Ketones Trace A Urine Occult Blood Large A Urine Nitrate Negative Urine Bilirubin Negative Urine Urobilinogen Normal Ur Leukocyte Esterase Moderate A Urine RBC 41 H Urine WBC > 182 H Ur Squamous Epith Cells 0 Urine Bacteria None Urine Mucus Mod A Ur Culture Indicated? yes O & P Trichrome Stain 0208/31/22 08/31/22 14:07 13:27 13:27 WBC 13.1 H RBC 4.99 Hgb 13.7 Hct 42.2 MCV 84.6 MCH 27.5 MCHC 32.5 RDW 13.9 Plt Count 254 MPV 9.9 Immature Gran % (Auto) 0.6 H Neut % (Auto) 89.5 H Lymph % (Auto) 4.8 L [place] % (Auto) 3.6 Eos % (Auto) 1.3 Baso % (Auto) 0.2 Lymph # (Auto) 0.63 L [place] # (Auto) 0.47 Eos # (Auto) 0.17 Baso # (Auto) 0.03 Immature Gran # 0.08 H Absolute Neutrophils 11.74 H Sodium Potassium Chloride Carbon Dioxide Anion Gap BUN Creatinine GFR Calculation Glucose Uric Acid Calcium Phosphorus Magnesium Total Bilirubin 0.4 Direct Bilirubin < 0.2 GGT AST 49 H ALT 18 Alkaline Phosphatase 136 H Lactate Dehydrogenase Total Protein 7.8 Albumin 4.0 Globulin 3.8 H Albumin/Globulin Ratio Triglycerides Lipase 33 Urine Color Urine Appearance Urine pH Ur Specific [place] Urine Protein Urine Glucose (UA) Urine Ketones Urine Occult Blood Urine Nitrate Urine Bilirubin Urine Urobilinogen Ur Leukocyte Esterase Urine RBC Urine WBC Ur Squamous Epith Cells Urine Bacteria Urine Mucus Ur Culture Indicated? O & P Trichrome Stain Pending Discharge Plan Patient/Caregiver Discharge Instructions Activity: increase activity as tolerated Diet: Consistent Carbohydrate Prescriptions: Continued pramipexole 0.25 mg tablet See Rx Instructions .ROUTE .COMPLEX Qty: 120 3RF Rx Instructions: 1-2 tabs QHS amitriptyline 50 mg tablet 50 mg tablet 50 mg PO QHS Qty: 90 3RF Rx Instructions: 1 po hs montelukast 10 mg tablet 10 mg PO QPM Qty: 90 0RF pravastatin 10 mg tablet 10 mg PO QDAY Qty: 90 3RF aspirin 81 mg tablet,delayed release (DR/EC) 81 mg PO QDAY acetaminophen 325 mg tablet 650 mg PO Q4H PRN (Reason: Fever Or Pain) Lactobacillus rhamnosus GG [Culturelle] 1 cap PO QDAY albuterol sulfate [ProAir HFA] 90 mcg/actuation HFA aerosol inhaler 2 puff INHALATION Q6H PRN (Reason: shortness of breath or wheezing) Qty: 8.5 6RF Trelegy Ellipta 200-62.5-25 mcg blister with device 1 inh inhalation Q24H Qty: 60 11RF Rx Instructions: Vigorously gargle, rinse, and spit after each use polyethylene glycol 3350 [Miralax] 17 gram/dose powder 4 g PO ONCE Qty: 510 2RF docusate sodium [Dulcolax Stool Softener (dss)] 100 mg capsule 100 mg PO BID Qty: 60 2RF losartan 25 mg Tablet 12.5 mg PO DAILY gabapentin 300 mg capsule 300 mg PO HS Follow Up Plan Follow up with: Rosaura Andrews ARNP [Primary Care Provider] - Patient Disposition: Xfer SNF Prognosis: Fair Rehab Potential: Fair I certify that the patient requires SNF services: Yes Overall status at discharge: patient is progressing back to baseline QUALITY VTE Deep Vein Thrombosis/Pulmonary Embolism Present on Admission: No
[2022-09-01] MEDS: PRAMIPEXOLE 0.25 MG TABLET PO SCH (20:37)
[2022-09-01] MEDS: MONTELUKAST 10 MG TABLET PO SCH (20:38)
[2022-09-01] MEDS: AMITRIPTYLINE 25 MG TABLET PO SCH (20:38)
[2022-09-01] MEDS: GABAPENTIN 300 MG CAPSULE PO SCH (20:38)
[2022-09-01] MEDS: SIMVASTATIN 10 MG TABLET PO SCH (20:38)
[2022-09-02] MEDS: 0.9 % SODIUM CHLORIDE 10 ML SYRINGE IV SCH ×3 (04:59→20:23)
[2022-09-02 06:28] LABS: Basophils # (Auto) 0.02 K/mcL (0.00-0.30); Basophils % (Auto) 0.2 % (0.0-2.0); Eosinophils # (Auto) 0.84 K/mcL (0.00-0.70); Eosinophils % (Auto) 9.9 % (0.0-7.0); Hematocrit 35.9 % (34.1-44.9); Hemoglobin 11.8 g/dL (11.2-15.7); Lymphocytes # (Auto) 1.77 K/mcL (1.50-4.80); Lymphocytes % (Auto) 20.8 % (15.5-49.0); Mean Cell Volume 85.5 fL (80.0-100.0); Mean Corpuscular HGB Conc 32.9 g/dL (31.0-36.0); Monocytes # (Auto) 0.47 K/mcL (0.10-0.90); Monocytes % (Auto) 5.5 % (1.0-12.0); Neutrophils % (Auto) 63.1 % (38.0-78.0); Platelet Count 202 K/mcL (140-440); Red Cell Distribution Width 13.9 % (11.5-14.5); WBC 8.5 K/mcL (4.5-11.0)
[2022-09-02 07:17] LABS: ALT/SGPT 24 U/L (<40); AST/SGOT 105 U/L (<32); Albumin 3.4 gm/dL (3.2-5.2); Alkaline Phosphatase 85 U/L (39-117); Bilirubin,Direct < 0.2 mg/dL (0-0.3); Bilirubin,Total 0.4 mg/dL (0.1-1.0); Blood Urea Nitrogen 18 mg/dL (8-23); Calcium 8.2 mg/dL (8.6-10.4); Carbon Dioxide 25 mmol/L (22-30); Chloride 103 mmol/L (96-108); Globulin 3.3 gm/dL (2.2-3.7); Glomerular Filtration Rate 43; Glucose 107 mg/dL (70-105); Lactate Dehydrogenase 311 U/L (135-225); Phosphorous 2.5 mg/dL (2.5-4.5); Triglycerides 148 mg/dL (<150)
[2022-09-02] MEDS: INSULIN LISPRO 1 UNIT/0.01 ML UNIT SQ SCH ×4 (07:18→19:38)
--- NOTE | 2022-09-02 07:51 | Internal Med Progress Note ---
SUBJECTIVE Subjective Patient information: Note initiated : 09/02/22 at 7:48 am Service Date, if different from initiated Date: [] Patient: Sharon Pierce a 81 y/o F admitted on 09/01/22 for N/v/d. Chief Complaint: [] Interval history: History of present illness: Ms. Pierce is a 81 year old F Patient is a poor historian given her dementia and most of the history is obtained from the chart. Sounds like she has had 3 days of nausea vomiting diarrhea most notably the diarrhea. Her family members unable to care for her at home. In the ED she was seen and evaluated and had a CT abdomen pelvis which showed no acute pathology but did show some bilateral ovarian cyst considered abnormal for her age and pelvic ultrasound was recommended. She was tachycardic at 120 but blood pressure was stable. Other vital signs are stable. Mild leukocytosis of 13. No lactic acidosis. Renal function Near baseline. C. difficile negative in the ED. 09/01 Still having liquid brown stools. Pending stool studies. Leukocytosis present. UTI noted on UA from yesterday. Pelvic ultrasound shows bilateral cysts no solid masses. Chronic kidney disease with elevated creatinine. Awaiting home medication reconciliation. 09/02 Patient appears to be in good spirits today. No diarrhea overnight. at bedside. Leukocytosis resolved. Pending urine and stool cultures. Review of Systems: denies headache/fever/chills/nausea/vomiting/chest or abdominal p ain/cough/dyspnea. Otherwise see above. Constitutional Vitals: Vital Signs Temp Pulse Resp BP Pulse Ox O2 Del Method 97.2 F 88 16 121/63 96 Room Air 09/02/22 03:35 09/02/22 03:35 09/02/22 03:35 09/02/22 03:35 09/02/22 03:35 09/02/22 03:35 Period Temp Pulse Resp BP Sys/Roberts Pulse Ox O2 Del Method O2 Flow Rate Last 24 Hr 97.2 F-98.3 F 61-88 15-18 106-121/61-73 95-98 Room Air-Room Air Intake and Output 09/01/22 09/02/22 09/02/22 19:59 03:59 11:59 Intake Total 1080 500 Output Total 402 1 Balance 678 499 Weight 68.765 kg Intake & Output: Intake & Output 09/01/22 09/02/22 09/02/22 19:59 03:59 11:59 Intake Total 1080 500 Output Total 402 1 Balance 678 499 Weight 68.765 kg Intake: IV 1000 Sodium Chloride 0.9% 1,000 ml @ 1000 75 mls/hr IV .[id number] [facility] Rx#: [id number] Oral 80 500 Output: Void Amount 400 # of times incontinent of urine 2 1 Other: Meal Lunch Percent of Meal Consumed 20 Feeding Ability Assist with Tray Set Up Exam: General: Alert, Awake, No acute Distress Eyes/N/T: EOMI, Head/Neck: neck supple, CV: RRR, 3/6SM, Pulm: Clear b/l, no wheezing/rhonchi/rales Abd: soft, nontender, +BS x4 Ext: no clubbing/cyanosis, mild LLE edema Neuro: Alert, no focal deficits, moves all extremities, Skin: warm/dry OBJ DATA Labs 09/02/22 05:50 09/02/22 05:50 Labs: Abnormal Lab Results 09/02/22 09/02/22 09/01/22 05:50 05:50 06:15 WBC Immature Gran % (Auto) Neut % (Auto) Lymph % (Auto) Eos % (Auto) 9.9 H Lymph # (Auto) [place] # (Auto) Eos # (Auto) 0.84 H Immature Gran # Absolute Neutrophils POC BUN Creatinine 1.2 H 1.4 H POC Creatinine Glucose 107 H 108 H POC Glucose Calcium 8.2 L 8.5 L AST 105 H 89 H Alkaline Phosphatase Lactate Dehydrogenase 311 H 266 H Globulin Urine Appearance Urine Protein Urine Glucose (UA) Urine Ketones Urine Occult Blood Ur Leukocyte Esterase Urine RBC Urine WBC Urine Mucus 09/01/22 08/31/22 08/31/22 06:15 17:30 13:28 WBC 12.8 H Immature Gran % (Auto) 1.2 H Neut % (Auto) Lymph % (Auto) Eos % (Auto) Lymph # (Auto) [place] # (Auto) 1.06 H Eos # (Auto) Immature Gran # 0.15 H Absolute Neutrophils POC BUN 23 H Creatinine POC Creatinine 1.3 H Glucose POC Glucose 207 H Calcium AST Alkaline Phosphatase Lactate Dehydrogenase Globulin Urine Appearance Cloudy A Urine Protein 30 A Urine Glucose (UA) 250 A Urine Ketones Trace A Urine Occult Blood Large A Ur Leukocyte Esterase Moderate A Urine RBC 41 H Urine WBC > 182 H Urine Mucus Mod A 08/31/22 08/31/22 13:27 13:27 WBC 13.1 H Immature Gran % (Auto) 0.6 H Neut % (Auto) 89.5 H Lymph % (Auto) 4.8 L Eos % (Auto) Lymph # (Auto) 0.63 L [place] # (Auto) Eos # (Auto) Immature Gran # 0.08 H Absolute Neutrophils 11.74 H POC BUN Creatinine POC Creatinine Glucose POC Glucose Calcium AST 49 H Alkaline Phosphatase 136 H Lactate Dehydrogenase Globulin 3.8 H Urine Appearance Urine Protein Urine Glucose (UA) Urine Ketones Urine Occult Blood Ur Leukocyte Esterase Urine RBC Urine WBC Urine Mucus Meds: Medications Acetaminophen (Acetaminophen 325 Mg Tablet) 650 mg PO Q6HP PRN; Protocol PRN Reason: Per Pain Protocol/Fever > 101 Albuterol/Ipratropium (Ipratropium/Albuterol 3 Ml Ampul.Neb) 3 ml NEB Q4HP PRN PRN Reason: Shortness Of Breath Amitriptyline HCl (Amitriptyline 25 Mg Tablet) 50 mg PO [facility] Last Admin: 09/01/22 20:38 Dose: 50 mg Aspirin (Aspirin 81 Mg Tab.Chew) 81 mg PO DAILY [facility] Last Admin: 09/01/22 10:03 Dose: 81 mg Ceftriaxone Sodium (Ceftriaxone 1 Gm Vial) 1 gm IV Q24H [facility]; Protocol Last Admin: 09/01/22 10:30 Dose: 1 gm Dextrose (Dextrose 50% 50 Ml Vial) 0 ml IV UD PRN PRN Reason: Per Sliding Scale Diagnostic Test (Pha) (Accu-Chek 1 Each Strip) 1 each FS ACHS [facility] Last Admin: 09/02/22 07:15 Dose: 1 each Enoxaparin Sodium (Enoxaparin 40 Mg/0.4 Ml Syringe) 40 mg SQ DAILY [facility] Last Admin: 09/01/22 10:03 Dose: 40 mg Gabapentin (Gabapentin 300 Mg Capsule) 300 mg PO HS [facility] Last Admin: 09/01/22 20:38 Dose: 300 mg Glucose (Dextrose 31 Gm Oral.Susp) 15 gm PO PRN PRN PRN Reason: Hypoglycemia Potassium Chloride 40 meq/ (Dextrose) 520 mls @ 130 mls/hr IV UD PRN PRN Reason: Potassium < 3 Magnesium Sulfate (Magnesium Sulfate) 2 gm in 50 mls @ 50 mls/hr IV UD PRN PRN Reason: Magnesium </= 1.6 Insulin Human Lispro (Insulin Lispro 1 Unit/0.01 Ml Unit) 0 unit SQ ACHS [facility]; Protocol Last Admin: 09/02/22 07:18 Dose: Not Given Montelukast Sodium (Montelukast 10 Mg Tablet) 10 mg PO QPM [facility] Last Admin: 09/01/22 20:38 Dose: 10 mg Ondansetron HCl (Ondansetron 4 Mg/2 Ml Vial) 4 mg IV Q4HP PRN PRN Reason: Nausea And Vomiting Fluticasone- Umeclidinium- Vilanterol [Trelegy Ellipta] Inhaler 1 dose INH Q24H [facility] Last Admin: 09/01/22 10:30 Dose: Not Given Potassium Chloride (Potassium Chloride 20 Meq Tablet) 40 meq PO UD PRN PRN Reason: Potssium is 3-3.5 Potassium Chloride (Potassium Chloride 20 Meq Tablet) 40 meq PO UD PRN PRN Reason: Potassium < 3 Pramipexole Dihydrochloride (Pramipexole 0.25 Mg Tablet) 0.25 - 0.5 mg PO [facility] Last Admin: 09/01/22 20:37 Dose: 0.25 mg Simvastatin (Simvastatin 10 Mg Tablet) 10 mg PO [facility] Last Admin: 09/01/22 20:38 Dose: 10 mg Sodium Chloride (0.9 % Sodium Chloride 10 Ml Syringe) 10 ml IV Q8 [facility] Last Admin: 09/02/22 04:59 Dose: 10 ml A/P Narrative A/P Narrative: A: *Gastroenteritis(Diarrhea and N/V):improving -cdiff neg *UTI( ): *Sepsis: leukocytosis/tachycardia/soft BP/borderline fever, improved *Volume depletion: improving *Dementia: *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 *COPD( ): *HTN/HLD: *CKDIIIb: *Incidental bilateral ovarian cysts: pelvic US revealing cysts, no solid mass, f/u US outpt 3-6mos *Generalized weakness/deconditioning/inability to care for self P: -IVF d/c -Monitor vitals, BP closely -stool studies pending -rocephin, pending UC -SSI -PT/OT -CM for placement needs -ppx: Lovenox DNR Time Spent With Patient Time: Total time spent is greater than 50% in coordination of care (as documented) at patient's floor/unit and/or counseling patient: Subsequent: Total time with patient: 35 - 49 minutes QUALITY VTE Deep Vein Thrombosis/Pulmonary Embolism Present on Admission: No
[2022-09-02] MEDS: ASPIRIN 81 MG TAB.CHEW PO SCH (08:33)
[2022-09-02] MEDS: ENOXAPARIN 40 MG/0.4 ML SYRINGE SQ SCH (08:33)
[2022-09-02] MEDS: cefTRIAXone 1 GM VIAL IV SCH (08:33)
[2022-09-02] MEDS: Fluticasone-Umeclidinium-Vilanterol [Trelegy Ellipta] Inhaler INH SCH ×2 (09:08→18:13)
[2022-09-02] MEDS ORDERED: hydrOXYzine 25 MG TABLET PO ONE (14:46)
[2022-09-02] MEDS: ACETAMINOPHEN 325 MG TABLET PO PRN (17:41)
[2022-09-02] MEDS: PRAMIPEXOLE 0.25 MG TABLET PO SCH (19:31)
[2022-09-02] MEDS: MONTELUKAST 10 MG TABLET PO SCH (19:31)
[2022-09-02] MEDS: AMITRIPTYLINE 25 MG TABLET PO SCH (19:31)
[2022-09-02] MEDS: MELATONIN 3 MG TABLET PO SCH (19:31)
[2022-09-02] MEDS: GABAPENTIN 300 MG CAPSULE PO SCH (19:32)
[2022-09-02] MEDS: SIMVASTATIN 10 MG TABLET PO SCH (19:32)
[2022-09-02] MEDS: OLANZapine 5 MG TABLET PO PRN (22:45)
[2022-09-03] MEDS: 0.9 % SODIUM CHLORIDE 10 ML SYRINGE IV SCH ×3 (04:58→20:19)
--- NOTE | 2022-09-03 07:48 | Internal Med Progress Note ---
SUBJECTIVE Subjective Patient information: Note initiated : 09/03/22 at 7:45 am Service Date, if different from initiated Date: [] Patient: Sharon Pierce a 81 y/o F admitted on 09/01/22 for N/v/d. Chief Complaint: [] Interval history: History of present illness: Ms. Pierce is a 81 year old F Patient is a poor historian given her dementia and most of the history is obtained from the chart. Sounds like she has had 3 days of nausea vomiting diarrhea most notably the diarrhea. Her family members unable to care for her at home. In the ED she was seen and evaluated and had a CT abdomen pelvis which showed no acute pathology but did show some bilateral ovarian cyst considered abnormal for her age and pelvic ultrasound was recommended. She was tachycardic at 120 but blood pressure was stable. Other vital signs are stable. Mild leukocytosis of 13. No lactic acidosis. Renal function Near baseline. C. difficile negative in the ED. 2/ Still having liquid brown stools. Pending stool studies. Leukocytosis present. UTI noted on UA from yesterday. Pelvic ultrasound shows bilateral cysts no solid masses. Chronic kidney disease with elevated creatinine. Awaiting home medication reconciliation. 09/02 Patient appears to be in good spirits today. No diarrhea overnight. at bedside. Leukocytosis resolved. Pending urine and stool cultures. 09/03 Patient impulsive and agitated at times yesterday. Restless last night. Calm a nd resting this morning. Pleasant this morning. Diarrhea much improved. Bowel movements now soft. Urine culture with Enterococcus and Aerococcus. Review of Systems: denies headache/fever/chills/nausea/vomiting/chest or abdominal pain/cough/dyspnea. Otherwise see above. Constitutional Vitals: Vital Signs Temp Pulse Resp BP Pulse Ox O2 Del Method 98.0 F 85 16 112/59 99 Room Air 09/03/22 02:30 09/03/22 02:30 09/03/22 02:30 09/03/22 02:30 09/03/22 02:30 09/03/22 02:30 Period Temp Pulse Resp BP Sys/Roberts Pulse Ox O2 Del Method O2 Flow Rate Last 24 Hr 97.2 F-98.0 F 77-90 14-28 105-141/51-87 95-99 Room Air-Room Air Intake and Output 09/02/22 09/03/22 09/03/22 19:59 03:59 11:59 Intake Total 240 150 Output Total 3 1 Balance 240 147 -1 Weight 68.266 kg Intake & Output: Intake & Output 09/02/22 09/03/22 09/03/22 19:59 03:59 11:59 Intake Total 240 150 Output Total 3 1 Balance 240 147 -1 Weight 68.266 kg Intake: Oral 240 150 Output: # of times incontinent of urine 3 1 Other: Meal Lunch Percent of Meal Consumed 50% Feeding Ability Needs Supervision Urine Color Dark Yellow # Voids 1 Exam: General: Alert, Awake, No acute Distress Eyes/N/T: EOMI, Head/Neck: neck supple, CV: RRR, 3/6SM, Pulm: Clear b/l, no wheezing/rhonchi/rales Abd: soft, nontender, +BS x4 Ext: no clubbing/cyanosis, mild LLE edema Neuro: Alert, no focal deficits, moves all extremities, Skin: warm/dry OBJ DATA Labs 09/02/22 05:50 09/02/22 05:50 Labs: Abnormal Lab Results 09/02/22 09/02/22 09/01/22 05:50 05:50 06:15 WBC Immature Gran % (Auto) Neut % (Auto) Lymph % (Auto) Eos % (Auto) 9.9 H Lymph # (Auto) Lee # (Auto) Eos # (Auto) 0.84 H Immature Gran # Absolute Neutrophils POC BUN Creatinine 1.2 H 1.4 H POC Creatinine Glucose 107 H 108 H POC Glucose Calcium 8.2 L 8.5 L AST 105 H 89 H Alkaline Phosphatase Lactate Dehydrogenase 311 H 266 H Globulin Urine Appearance Urine Protein Urine Glucose (UA) Urine Ketones Urine Occult Blood Ur Leukocyte Esterase Urine RBC Urine WBC Urine Mucus 09/01/22 08/31/22 08/31/22 06:15 17:30 13:28 WBC 12.8 H Immature Gran % (Auto) 1.2 H Neut % (Auto) Lymph % (Auto) Eos % (Auto) Lymph # (Auto) Lee # (Auto) 1.06 H Eos # (Auto) Immature Gran # 0.15 H Absolute Neutrophils POC BUN 23 H Creatinine POC Creatinine 1.3 H Glucose POC Glucose 207 H Calcium AST Alkaline Phosphatase Lactate Dehydrogenase Globulin Urine Appearance Cloudy A Urine Protein 30 A Urine Glucose (UA) 250 A Urine Ketones Trace A Urine Occult Blood Large A Ur Leukocyte Esterase Moderate A Urine RBC 41 H Urine WBC > 182 H Urine Mucus Mod A 08/31/22 08/31/22 13:27 13:27 WBC 13.1 H Immature Gran % (Auto) 0.6 H Neut % (Auto) 89.5 H Lymph % (Auto) 4.8 L Eos % (Auto) Lymph # (Auto) 0.63 L Lee # (Auto) Eos # (Auto) Immature Gran # 0.08 H Absolute Neutrophils 11.74 H POC BUN Creatinine POC Creatinine Glucose POC Glucose Calcium AST 49 H Alkaline Phosphatase 136 H Lactate Dehydrogenase Globulin 3.8 H Urine Appearance Urine Protein Urine Glucose (UA) Urine Ketones Urine Occult Blood Ur Leukocyte Esterase Urine RBC Urine WBC Urine Mucus Meds: Medications Acetaminophen (Acetaminophen 325 Mg Tablet) 650 mg PO Q6HP PRN; Protocol PRN Reason: Per Pain Protocol/Fever > 101 Last Admin: 09/02/22 17:41 Dose: 650 mg Albuterol/Ipratropium (Ipratropium/Albuterol 3 Ml Ampul.Neb) 3 ml NEB Q4HP PRN PRN Reason: Shortness Of Breath Amitriptyline HCl (Amitriptyline 25 Mg Tablet) 50 mg PO HS [facility] Last Admin: 09/02/22 19:31 Dose: 50 mg Aspirin (Aspirin 81 Mg Tab.Chew) 81 mg PO DAILY [facility] Last Admin: 09/02/22 08:33 Dose: 81 mg Ceftriaxone Sodium (Ceftriaxone 1 Gm Vial) 1 gm IV Q24H [facility]; Protocol Last Admin: 09/02/22 08:33 Dose: 1 gm Dextrose (Dextrose 50% 50 Ml Vial) 0 ml IV UD PRN PRN Reason: Per Sliding Scale Diagnostic Test (Pha) (Accu-Chek 1 Each Strip) 1 each FS ACHS [facility] Last Admin: 09/02/22 19:38 Dose: 1 each Enoxaparin Sodium (Enoxaparin 40 Mg/0.4 Ml Syringe) 40 mg SQ DAILY [facility] Last Admin: 09/02/22 08:33 Dose: 40 mg Gabapentin (Gabapentin 300 Mg Capsule) 300 mg PO HS [facility] Last Admin: 09/02/22 19:32 Dose: 300 mg Glucose (Dextrose 31 Gm Oral.Susp) 15 gm PO PRN PRN PRN Reason: Hypoglycemia Potassium Chloride 40 meq/ (Dextrose) 520 mls @ 130 mls/hr IV UD PRN PRN Reason: Potassium < 3 Magnesium Sulfate (Magnesium Sulfate) 2 gm in 50 mls @ 50 mls/hr IV UD PRN PRN Reason: Magnesium </= 1.6 Insulin Human Lispro (Insulin Lispro 1 Unit/0.01 Ml Unit) 0 unit SQ ACHS [facility]; Protocol Last Admin: 09/02/22 19:38 Dose: Not Given Melatonin (Melatonin 3 Mg Tablet) 3 mg PO QHS [facility] Last Admin: 09/02/22 19:31 Dose: 3 mg Montelukast Sodium (Montelukast 10 Mg Tablet) 10 mg PO QPM [facility] Last Admin: 09/02/22 19:31 Dose: 10 mg Olanzapine (Olanzapine 5 Mg Tablet) 5 mg PO HSP PRN PRN Reason: Agitation Last Admin: 09/02/22 22:45 Dose: 5 mg Ondansetron HCl (Ondansetron 4 Mg/2 Ml Vial) 4 mg IV Q4HP PRN PRN Reason: Nausea And Vomiting Fluticasone- Umeclidinium- Vilanterol [Trelegy Ellipta] Inhaler 1 dose INH Q24H [facility] Last Admin: 09/02/22 18:13 Dose: 1 dose Potassium Chloride (Potassium Chloride 20 Meq Tablet) 40 meq PO UD PRN PRN Reason: Potssium is 3-3.5 Potassium Chloride (Potassium Chloride 20 Meq Tablet) 40 meq PO UD PRN PRN Reason: Potassium < 3 Pramipexole Dihydrochloride (Pramipexole 0.25 Mg Tablet) 0.25 - 0.5 mg PO [facility] Last Admin: 09/02/22 19:31 Dose: 0.5 mg Simvastatin (Simvastatin 10 Mg Tablet) 10 mg PO [facility] Last Admin: 09/02/22 19:32 Dose: 10 mg Sodium Chloride (0.9 % Sodium Chloride 10 Ml Syringe) 10 ml IV Q8 [facility] Last Admin: 09/03/22 04:58 Dose: 10 ml A/P Narrative A/P Narrative: A: *Gastroenteritis(Diarrhea and N/V):improving -cdiff neg *UTI(Enterococcus/Aerococcus): *Sepsis: leukocytosis/tachycardia/soft BP/borderline fever, all improved *Volume depletion: improved *Dementia: *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 *COPD( ): *HTN/HLD: *CKDIIIb: *Incidental bilateral ovarian cysts: pelvic US revealing cysts, no solid mass, f/u US outpt 3-6mos *Generalized weakness/deconditioning/inability to care for self P: -Rocephin, pending final UC -Monitor vitals, BP closely -stool studies pending -Rocephin, pending UC -SSI -PT/OT -CM for placement needs -ppx: Lovenox DNR Time Spent With Patient Time: Total time spent is greater than 50% in coordination of care (as documented) at patient's floor/unit and/or counseling patient: Subsequent: Total time with patient: 35 - 49 minutes QUALITY VTE Deep Vein Thrombosis/Pulmonary Embolism Present on Admission: No
[2022-09-03] MEDS: ASPIRIN 81 MG TAB.CHEW PO SCH (09:33)
[2022-09-03] MEDS: cefTRIAXone 1 GM VIAL IV SCH (09:33)
[2022-09-03] MEDS: ENOXAPARIN 40 MG/0.4 ML SYRINGE SQ SCH (09:33)
[2022-09-03] MEDS: INSULIN LISPRO 1 UNIT/0.01 ML UNIT SQ SCH ×4 (09:34→20:19)
[2022-09-03] MEDS: Fluticasone-Umeclidinium-Vilanterol [Trelegy Ellipta] Inhaler INH SCH (09:34)
[2022-09-03] MEDS: PRAMIPEXOLE 0.25 MG TABLET PO SCH (20:19)
[2022-09-03] MEDS: AMITRIPTYLINE 25 MG TABLET PO SCH (20:19)
[2022-09-03] MEDS: GABAPENTIN 300 MG CAPSULE PO SCH (20:19)
[2022-09-03] MEDS: MONTELUKAST 10 MG TABLET PO SCH (20:19)
[2022-09-03] MEDS: SIMVASTATIN 10 MG TABLET PO SCH (20:19)
[2022-09-03] MEDS: MELATONIN 3 MG TABLET PO SCH (20:20)
--- NOTE | 2022-09-04 07:30 | EKG ---
[facility] Test Date: 2022-08-31 Pat Name: Sharon Pierce Department: ED Room: Gender: Female Combiner: LR : 1940 Requested By: Aryan Grajeda Order Number: [id number] Reading MD: Gavin Chapin Measurements Intervals [address] Rate: 117 P: 70 IN: 144 QRS: 15 QRSD: 85 T: 38 QT: 336 QTc: 470 Interpretive Statements Sinus tachycardia Artifact Electronically Signed On 09-04-2022 7:30:18 PST by Gavin Chapin /store/[email or web address]/[id number]/[id number]
[2022-09-04] MEDS: cefTRIAXone 1 GM VIAL IV SCH (07:39)
[2022-09-04] MEDS: ENOXAPARIN 40 MG/0.4 ML SYRINGE SQ SCH (07:39)
[2022-09-04] MEDS: INSULIN LISPRO 1 UNIT/0.01 ML UNIT SQ SCH (07:41)
[2022-09-04] MEDS: 0.9 % SODIUM CHLORIDE 10 ML SYRINGE IV SCH ×3 (07:41→21:04)
[2022-09-04] MEDS: ASPIRIN 81 MG TAB.CHEW PO SCH (07:42)
[2022-09-04] MEDS: Fluticasone-Umeclidinium-Vilanterol [Trelegy Ellipta] Inhaler INH SCH (07:42)
--- NOTE | 2022-09-04 10:07 | Internal Med Progress Note ---
SUBJECTIVE Subjective Patient information: Note initiated : 09/04/22 at 10:05 am Service Date, if different from initiated Date: [] Patient: Sharon Pierce a 81 y/o F admitted on 09/01/22 for N/v/d. Chief Complaint: [] Interval history: History of present illness: Ms. Pierce is a 81 year old F Patient is a poor historian given her dementia and most of the history is obtained from the chart. Sounds like she has had 3 days of nausea vomiting diarrhea most notably the diarrhea. Her family members unable to care for her at home. In the ED she was seen and evaluated and had a CT abdomen pelvis which showed no acute pathology but did show some bilateral ovarian cyst considered abnormal for her age and pelvic ultrasound was recommended. She was tachycardic at 120 but blood pressure was stable. Other vital signs are stable. Mild leukocytosis of 13. No lactic acidosis. Renal function Near baseline. C. difficile negative in the ED. 2/3 Still having liquid brown stools. Pending stool studies. Leukocytosis present. UTI noted on UA from yesterday. Pelvic ultrasound shows bilateral cysts no solid masses. Chronic kidney disease with elevated creatinine. Awaiting home medication reconciliation. 2/ Patient appears to be in good spirits today. No diarrhea overnight. at bedside. Leukocytosis resolved. Pending urine and stool cultures. 2/ Patient impulsive and agitated at times yesterday. Restless last night. Calm and resting this morning. Pleasant this morning. Diarrhea much improved. Bowel movements now soft. Urine culture with Enterococcus and Aerococcus. 09/04 Diarrhea essentially resolved. Awaiting placement. Pleasant this morning. Awaiting placement. Review of Systems: denies headache/fever/chills/nausea/vomiting/chest or abdominal pain/cough/dyspnea. Otherwise see above. Constitutional Vitals: Vital Signs Temp Pulse Resp BP Pulse Ox O2 Del Method 97.4 F 85 20 123/62 98 Room Air 09/04/22 08:00 09/04/22 08:00 09/04/22 08:00 09/04/22 08:00 09/04/22 08:00 09/04/22 08:00 Period Temp Pulse Resp BP Sys/Roberts Pulse Ox O2 Del Method O2 Flow Rate Last 24 Hr 97.2 F-98.0 F 68-90 16-20 110-142/58-82 92-99 Room Air-Room Air Intake and Output 09/03/22 09/04/22 09/04/22 19:59 03:59 11:59 Intake Total 360 450 Output Total 3 3 Balance 357 447 Weight 67.948 kg Intake & Output: Intake & Output 09/03/22 09/04/22 09/04/22 19:59 03:59 11:59 Intake Total 360 450 Output Total 3 3 Balance 357 447 Weight 67.948 kg Intake: Oral 360 450 Output: # of times incontinent of urine 3 3 Other: Meal Lunch Percent of Meal Consumed 100% Feeding Ability Assist with Tray Set Up Urine Appearance Clear Urine Color Yellow Exam: General: Alert, Awake, No acute Distress Eyes/N/T: EOMI, Head/Neck: neck supple, CV: RRR, 3/6SM, Pulm: Clear b/l, no wheezing/rhonchi/rales Abd: soft, nontender, +BS x4 Ext: no clubbing/cyanosis, mild LLE edema Neuro: Alert, no focal deficits, moves all extremities, Skin: warm/dry OBJ DATA Labs 09/02/22 05:50 09/02/22 05:50 Labs: Abnormal Lab Results 09/02/22 09/02/22 05:50 05:50 Eos % (Auto) 9.9 H Eos # (Auto) 0.84 H Creatinine 1.2 H Glucose 107 H Calcium 8.2 L AST 105 H Lactate Dehydrogenase 311 H Meds: Medications Acetaminophen (Acetaminophen 325 Mg Tablet) 650 mg PO Q6HP PRN; Protocol PRN Reason: Per Pain Protocol/Fever > 101 Last Admin: 09/02/22 17:41 Dose: 650 mg Albuterol/Ipratropium (Ipratropium/Albuterol 3 Ml Ampul.Neb) 3 ml NEB Q4HP PRN PRN Reason: Shortness Of Breath Amitriptyline HCl (Amitriptyline 25 Mg Tablet) 50 mg PO HS [facility] Last Admin: 09/03/22 20:19 Dose: 50 mg Aspirin (Aspirin 81 Mg Tab.Chew) 81 mg PO DAILY [facility] Last Admin: 09/04/22 07:42 Dose: 81 mg Ceftriaxone Sodium (Ceftriaxone 1 Gm Vial) 1 gm IV Q24H [facility]; Protocol Last Admin: 09/04/22 07:39 Dose: 1 gm Dextrose (Dextrose 50% 50 Ml Vial) 0 ml IV UD PRN PRN Reason: Per Sliding Scale Diagnostic Test (Pha) (Accu-Chek 1 Each Strip) 1 each FS [facility] Last Admin: 09/04/22 07:41 Dose: 1 each Enoxaparin Sodium (Enoxaparin 40 Mg/0.4 Ml Syringe) 40 mg SQ DAILY [facility] Last Admin: 09/04/22 07:39 Dose: 40 mg Gabapentin (Gabapentin 300 Mg Capsule) 300 mg PO HS [facility] Last Admin: 09/03/22 20:19 Dose: 300 mg Glucose (Dextrose 31 Gm Oral.Susp) 15 gm PO PRN PRN PRN Reason: Hypoglycemia Potassium Chloride 40 meq/ (Dextrose) 520 mls @ 130 mls/hr IV UD PRN PRN Reason: Potassium < 3 Magnesium Sulfate (Magnesium Sulfate) 2 gm in 50 mls @ 50 mls/hr IV UD PRN PRN Reason: Magnesium </= 1.6 Insulin Human Lispro (Insulin Lispro 1 Unit/0.01 Ml Unit) 0 unit SQ [facility]; Protocol Last Admin: 09/04/22 07:41 Dose: Not Given Melatonin (Melatonin 3 Mg Tablet) 3 mg PO QHS [facility] Last Admin: 09/03/22 20:20 Dose: 3 mg Montelukast Sodium (Montelukast 10 Mg Tablet) 10 mg PO QPM [facility] Last Admin: 09/03/22 20:19 Dose: 10 mg Olanzapine (Olanzapine 5 Mg Tablet) 5 mg PO HSP PRN PRN Reason: Agitation Last Admin: 09/02/22 22:45 Dose: 5 mg Ondansetron HCl (Ondansetron 4 Mg/2 Ml Vial) 4 mg IV Q4HP PRN PRN Reason: Nausea And Vomiting Fluticasone- Umeclidinium- Vilanterol [Trelegy Ellipta] Inhaler 1 dose INH Q24H [facility] Last Admin: 09/04/22 07:42 Dose: 1 dose Potassium Chloride (Potassium Chloride 20 Meq Tablet) 40 meq PO UD PRN PRN Reason: Potssium is 3-3.5 Potassium Chloride (Potassium Chloride 20 Meq Tablet) 40 meq PO UD PRN PRN Reason: Potassium < 3 Pramipexole Dihydrochloride (Pramipexole 0.25 Mg Tablet) 0.25 - 0.5 mg PO [facility] Last Admin: 09/03/22 20:19 Dose: 0.5 mg Simvastatin (Simvastatin 10 Mg Tablet) 10 mg PO [facility] Last Admin: 09/03/22 20:19 Dose: 10 mg Sodium Chloride (0.9 % Sodium Chloride 10 Ml Syringe) 10 ml IV Q8 [facility] Last Admin: 09/04/22 07:41 Dose: 10 ml A/P Narrative A/P Narrative: A: *Gastroenteritis(Diarrhea and N/V):improving -cdiff neg *UTI(Enterococcus/Aerococcus): *Sepsis: leukocytosis/tachycardia/soft BP/borderline fever, all improved *Volume depletion: improved *Dementia: *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 *COPD( ): *HTN/HLD: *CKDIIIb: *Incidental bilateral ovarian cysts: pelvic US revealing cysts, no solid mass, f/u US outpt 3-6mos *Generalized weakness/deconditioning/inability to care for self P: -Rocephin, pending final UC -Monitor vitals, BP closely -Rocephin, pending UC -SSI -PT/OT -CM for placement needs -ppx: Lovenox DNR Time Spent With Patient Time: Total time spent is greater than 50% in coordination of care (as documented) at patient's floor/unit and/or counseling patient: Subsequent: Total time with patient: 35 - 49 minutes QUALITY VTE Deep Vein Thrombosis/Pulmonary Embolism Present on Admission: No
[2022-09-04] MEDS: OLANZapine 5 MG TABLET PO PRN (19:07)
[2022-09-04] MEDS: MONTELUKAST 10 MG TABLET PO SCH (20:26)
[2022-09-04] MEDS: MELATONIN 3 MG TABLET PO SCH (20:26)
[2022-09-04] MEDS: AMITRIPTYLINE 25 MG TABLET PO SCH (20:26)
[2022-09-04] MEDS: GABAPENTIN 300 MG CAPSULE PO SCH (20:26)
[2022-09-04] MEDS: SIMVASTATIN 10 MG TABLET PO SCH (20:27)
[2022-09-04] MEDS: QUEtiapine 25 MG TABLET PO PRN (20:27)
[2022-09-04] MEDS: PRAMIPEXOLE 0.25 MG TABLET PO SCH (20:27)
[2022-09-04] MEDS: diphenhydrAMINE 25 MG CAPSULE PO PRN (20:27)
[2022-09-05] MEDS: 0.9 % SODIUM CHLORIDE 10 ML SYRINGE IV SCH ×3 (04:23→20:18)
--- NOTE | 2022-09-05 07:37 | Internal Med Progress Note ---
SUBJECTIVE Subjective Patient information: Note initiated : 09/05/22 at 7:36 am Service Date, if different from initiated Date: [] Patient: Sharon Pierce a 81 y/o F admitted on 09/01/22 for N/v/d. Chief Complaint: [] Interval history: History of present illness: Ms. Pierce is a 81 year old F Patient is a poor historian given her dementia and most of the history is obtained from the chart. Sounds like she has had 3 days of nausea vomiting diarrhea most notably the diarrhea. Her family members unable to care for her at home. In the ED she was seen and evaluated and had a CT abdomen pelvis which showed no acute pathology but did show some bilateral ovarian cyst considered abnormal for her age and pelvic ultrasound was recommended. She was tachycardic at 120 but blood pressure was stable. Other vital signs are stable. Mild leukocytosis of 13. No lactic acidosis. Renal function Near baseline. C. difficile negative in the ED. 2/ Still having liquid brown stools. Pending stool studies. Leukocytosis present. UTI noted on UA from yesterday. Pelvic ultrasound shows bilateral cysts no solid masses. Chronic kidney disease with elevated creatinine. Awaiting home medication reconciliation. 2 Patient appears to be in good spirits today. No diarrhea overnight. at bedside. Leukocytosis resolved. Pending urine and stool cultures. 2 Patient impulsive and agitated at times yesterday. Restless last night. Calm a nd resting this morning. Pleasant this morning. Diarrhea much improved. Bowel movements now soft. Urine culture with Enterococcus and Aerococcus. 09/04 Diarrhea essentially resolved. Awaiting placement. Pleasant this morning. Awaiting placement. 09/05 Patient was restless last afternoon and early evening. Sitting her chair this morning pleasant and cooperative. Review of Systems: denies headache/fever/chills/nausea/vomiting/chest or abdominal pain/cough/dyspnea. Otherwise see above. Constitutional Vitals: Vital Signs Temp Pulse Resp BP Pulse Ox O2 Del Method O2 Flow Rate 97.3 F 77 20 118/58 96 Room Air 0 09/05/22 07:26 09/05/22 07:26 09/05/22 07:26 09/05/22 07:26 09/05/22 07:26 09/05/22 07:26 09/04/22 20:00 Period Temp Pulse Resp BP Sys/Roberts Pulse Ox O2 Del Method O2 Flow Rate Last 24 Hr 97.3 F-97.8 F 76-109 19-20 118-153/58-75 96-98 Room Air-Room Air 0 Intake and Output 09/04/22 09/05/22 09/05/22 19:59 03:59 11:59 Intake Total 400 400 250 Output Total 77 1 Balance 400 323 249 Weight 67.132 kg Intake & Output: Intake & Output 09/04/22 09/05/22 09/05/22 19:59 03:59 11:59 Intake Total 400 400 250 Output Total 77 1 Balance 400 323 249 Weight 67.132 kg Intake: Oral 400 400 250 Output: Void Amount 75 # of times incontinent of urine 2 1 Other: Urine Appearance Clear Urine Color Bright Yellow Urine Odor Strong Stool Size Smear Stool Color Brown # Voids 1 Exam: General: Alert, Awake, No acute Distress Eyes/N/T: EOMI, Head/Neck: neck supple, CV: RRR, 3/6SM, Pulm: Clear b/l, no wheezing/rhonchi/rales Abd: soft, nontender, +BS x4 Ext: no clubbing/cyanosis, mild LLE edema Neuro: Alert, no focal deficits, moves all extremities, Skin: warm/dry OBJ DATA Labs 09/02/22 05:50 09/02/22 05:50 Meds: Medications Acetaminophen (Acetaminophen 325 Mg Tablet) 650 mg PO Q6HP PRN; Protocol PRN Reason: Per Pain Protocol/Fever > 101 Last Admin: 09/02/22 17:41 Dose: 650 mg Albuterol/Ipratropium (Ipratropium/Albuterol 3 Ml Ampul.Neb) 3 ml NEB Q4HP PRN PRN Reason: Shortness Of Breath Amitriptyline HCl (Amitriptyline 25 Mg Tablet) 50 mg PO HS [facility] Last Admin: 09/04/22 20:26 Dose: 50 mg Aspirin (Aspirin 81 Mg Tab.Chew) 81 mg PO DAILY [facility] Last Admin: 09/04/22 07:42 Dose: 81 mg Ceftriaxone Sodium (Ceftriaxone 1 Gm Vial) 1 gm IV Q24H [facility]; Protocol Last Admin: 09/04/22 07:39 Dose: 1 gm Diphenhydramine HCl (Diphenhydramine 25 Mg Capsule) 25 mg PO HSP PRN PRN Reason: Insomnia Last Admin: 09/04/22 20:27 Dose: 25 mg Enoxaparin Sodium (Enoxaparin 40 Mg/0.4 Ml Syringe) 40 mg SQ DAILY [facility] Last Admin: 09/04/22 07:39 Dose: 40 mg Gabapentin (Gabapentin 300 Mg Capsule) 300 mg PO HS [facility] Last Admin: 09/04/22 20:26 Dose: 300 mg Potassium Chloride 40 meq/ (Dextrose) 520 mls @ 130 mls/hr IV UD PRN PRN Reason: Potassium < 3 Magnesium Sulfate (Magnesium Sulfate) 2 gm in 50 mls @ 50 mls/hr IV UD PRN PRN Reason: Magnesium </= 1.6 Melatonin (Melatonin 3 Mg Tablet) 3 mg PO QHS [facility] Last Admin: 09/04/22 20:26 Dose: 3 mg Montelukast Sodium (Montelukast 10 Mg Tablet) 10 mg PO QPM [facility] Last Admin: 09/04/22 20:26 Dose: 10 mg Olanzapine (Olanzapine 5 Mg Tablet) 5 mg PO HSP PRN PRN Reason: Agitation Last Admin: 09/04/22 19:07 Dose: 5 mg Ondansetron HCl (Ondansetron 4 Mg/2 Ml Vial) 4 mg IV Q4HP PRN PRN Reason: Nausea And Vomiting Fluticasone- Umeclidinium- Vilanterol [Trelegy Ellipta] Inhaler 1 dose INH Q24H [facility] Last Admin: 09/04/22 07:42 Dose: 1 dose Potassium Chloride (Potassium Chloride 20 Meq Tablet) 40 meq PO UD PRN PRN Reason: Potssium is 3-3.5 Potassium Chloride (Potassium Chloride 20 Meq Tablet) 40 meq PO UD PRN PRN Reason: Potassium < 3 Pramipexole Dihydrochloride (Pramipexole 0.25 Mg Tablet) 0.25 - 0.5 mg PO HS [facility] Last Admin: 09/04/22 20:27 Dose: 0.25 mg Quetiapine Fumarate (Quetiapine 25 Mg Tablet) 25 mg PO HSP PRN PRN Reason: Agitation Last Admin: 09/04/22 20:27 Dose: 25 mg Simvastatin (Simvastatin 10 Mg Tablet) 10 mg PO HS [facility] Last Admin: 09/04/22 20:27 Dose: 10 mg Sodium Chloride (0.9 % Sodium Chloride 10 Ml Syringe) 10 ml IV Q8 [facility] Last Admin: 09/05/22 04:23 Dose: 10 ml A/P Narrative A/P Narrative: A: *Gastroenteritis(Diarrhea and N/V):improved -cdiff neg *UTI(Enterococcus/Aerococcus): *Sepsis: leukocytosis/tachycardia/soft BP/borderline fever, all improved *Volume depletion: improved *Dementia: *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
[2022-09-05] MEDS: cefTRIAXone 1 GM VIAL IV SCH (08:19)
[2022-09-05] MEDS: ASPIRIN 81 MG TAB.CHEW PO SCH (08:20)
[2022-09-05] MEDS: Fluticasone-Umeclidinium-Vilanterol [Trelegy Ellipta] Inhaler INH SCH (08:20)
[2022-09-05] MEDS: ENOXAPARIN 40 MG/0.4 ML SYRINGE SQ SCH (08:20)
--- NOTE | 2022-09-05 12:23 | Internal Med Progress Note ---
SUBJECTIVE Subjective Patient information: Note initiated : 09/05/22 at 12:20 pm Service Date, if different from initiated Date: [] Patient: Sharon Pierce a 81 y/o F admitted on 09/01/22 for N/v/d. Chief Complaint: [] Interval history: History of present illness: Ms. Pierce is a 81 year old F Patient is a poor historian given her dementia and most of the history is obtained from the chart. Sounds like she has had 3 days of nausea vomiting diarrhea most notably the diarrhea. Her family members unable to care for her at home. In the ED she was seen and evaluated and had a CT abdomen pelvis which showed no acute pathology but did show some bilateral ovarian cyst considered abnormal for her age and pelvic ultrasound was recommended. She was tachycardic at 120 but blood pressure was stable. Other vital signs are stable. Mild leukocytosis of 13. No lactic acidosis. Renal function Near baseline. C. difficile negative in the ED. 2/ Still having liquid brown stools. Pending stool studies. Leukocytosis present. UTI noted on UA from yesterday. Pelvic ultrasound shows bilateral cysts no solid masses. Chronic kidney disease with elevated creatinine. Awaiting home medication reconciliation. 2 Patient appears to be in good spirits today. No diarrhea overnight. at bedside. Leukocytosis resolved. Pending urine and stool cultures. 09/03 Patient impulsive and agitated at times yesterday. Restless last night. Calm and resting this morning. Pleasant this morning. Diarrhea much improved. Bowel movements now soft. Urine culture with Enterococcus and Aerococcus. 09/04 Diarrhea essentially resolved. Awaiting placement. Pleasant this morning. Awaiting placement. 09/05 Patient was restless last afternoon and early evening. Sitting her chair this morning pleasant and cooperative. 09/06 No significant events overnight, awaiting placement. Physical exam Head: Atraumatic, normal inspection. Eyes: normal appearance, no scleral icterus. Neck: full ROM Respiratory: no respiratory distress. Cardiovascular: normal rate and rhythm, S1, S2. GI/Abdominal: soft, nontender, no guarding. Extremities: full range of motion, nontender. Neurological: CN II-XII intact, intact motor, intact sensation. Psychiatric: Impaired cognition, normal mood. Skin: warm, normal color Constitutional Vitals: Vital Signs Temp Pulse Resp BP Pulse Ox O2 Del Method O2 Flow Rate 97.3 F 77 20 118/58 96 Room Air 0 09/05/22 07:26 09/05/22 07:26 09/05/22 07:26 09/05/22 07:26 09/05/22 07:26 09/05/22 07:26 09/04/22 20:00 Period Temp Pulse Resp BP Sys/Roberts Pulse Ox O2 Del Method O2 Flow Rate Last 24 Hr 97.3 F-97.8 F 76-109 19-20 118-153/58-75 96-97 Room Air-Room Air 0 Intake and Output 09/05/22 09/05/22 09/05/22 03:59 11:59 19:59 Intake Total 400 250 Output Total 77 1 Balance 323 249 Weight 67.132 kg Intake & Output: Intake & Output 09/05/22 09/05/22 09/05/22 03:59 11:59 19:59 Intake Total 400 250 Output Total 77 1 Balance 323 249 Weight 67.132 kg Intake: Oral 400 250 Output: Void Amount 75 # of times incontinent of urine 2 1 Other: Urine Appearance Clear Urine Color Bright Yellow Urine Odor Strong Stool Size Smear Stool Color Brown # Voids 1 OBJ DATA Labs 09/02/22 05:50 09/02/22 05:50 Meds: Medications Acetaminophen (Acetaminophen 325 Mg Tablet) 650 mg PO Q6HP PRN; Protocol PRN Reason: Per Pain Protocol/Fever > 101 Last Admin: 09/02/22 17:41 Dose: 650 mg Albuterol/Ipratropium (Ipratropium/Albuterol 3 Ml Ampul.Neb) 3 ml NEB Q4HP PRN PRN Reason: Shortness Of Breath Amitriptyline HCl (Amitriptyline 25 Mg Tablet) 50 mg PO HS [facility] Last Admin: 09/04/22 20:26 Dose: 50 mg Aspirin (Aspirin 81 Mg Tab.Chew) 81 mg PO DAILY [facility] Last Admin: 09/05/22 08:20 Dose: 81 mg Diphenhydramine HCl (Diphenhydramine 25 Mg Capsule) 25 mg PO HSP PRN PRN Reason: Insomnia Last Admin: 09/04/22 20:27 Dose: 25 mg Enoxaparin Sodium (Enoxaparin 40 Mg/0.4 Ml Syringe) 40 mg SQ DAILY [facility] Last Admin: 09/05/22 08:20 Dose: 40 mg Gabapentin (Gabapentin 300 Mg Capsule) 300 mg PO HS [facility] Last Admin: 09/04/22 20:26 Dose: 300 mg Potassium Chloride 40 meq/ (Dextrose) 520 mls @ 130 mls/hr IV UD PRN PRN Reason: Potassium < 3 Magnesium Sulfate (Magnesium Sulfate) 2 gm in 50 mls @ 50 mls/hr IV UD PRN PRN Reason: Magnesium </= 1.6 Melatonin (Melatonin 3 Mg Tablet) 3 mg PO QHS [facility] Last Admin: 09/04/22 20:26 Dose: 3 mg Montelukast Sodium (Montelukast 10 Mg Tablet) 10 mg PO QPM [facility] Last Admin: 09/04/22 20:26 Dose: 10 mg Olanzapine (Olanzapine 5 Mg Tablet) 5 mg PO HSP PRN PRN Reason: Agitation Last Admin: 09/04/22 19:07 Dose: 5 mg Ondansetron HCl (Ondansetron 4 Mg/2 Ml Vial) 4 mg IV Q4HP PRN PRN Reason: Nausea And Vomiting Fluticasone- Umeclidinium- Vilanterol [Trelegy Ellipta] Inhaler 1 dose INH Q24H [facility] Last Admin: 09/05/22 08:20 Dose: 1 dose Potassium Chloride (Potassium Chloride 20 Meq Tablet) 40 meq PO UD PRN PRN Reason: Potssium is 3-3.5 Potassium Chloride (Potassium Chloride 20 Meq Tablet) 40 meq PO UD PRN PRN Reason: Potassium < 3 Pramipexole Dihydrochloride (Pramipexole 0.25 Mg Tablet) 0.25 - 0.5 mg PO [facility] Last Admin: 09/04/22 20:27 Dose: 0.25 mg Quetiapine Fumarate (Quetiapine 25 Mg Tablet) 25 mg PO HSP PRN PRN Reason: Agitation Last Admin: 09/04/22 20:27 Dose: 25 mg Simvastatin (Simvastatin 10 Mg Tablet) 10 mg PO [facility] Last Admin: 09/04/22 20:27 Dose: 10 mg Sodium Chloride (0.9 % Sodium Chloride 10 Ml Syringe) 10 ml IV Q8 [facility] Last Admin: 09/05/22 04:23 Dose: 10 ml A/P Narrative A/P Narrative: Assessment:81-year-old female with a history of hypertension, hyperlipidemia, type II diabetes mellitus, chronic kidney disease stage IIIb, COPD, dementia admitted for nausea, vomiting and diarrhea felt to be secondary to gastroenteritis. The patient's symptoms have significantly improved, she is currently awaiting placement for low intensity rehab. 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 -Monitor vitals, BP closely -SSI low-dose -PT/OT -CM for placement needs -ppx: Lovenox -CODE STATUS: DNR -Disposition: Low intensity rehab pending placement. Time Spent With Patient Time: Total time spent is greater than 50% in coordination of care (as documented) at patient's floor/unit and/or counseling patient: QUALITY VTE Deep Vein Thrombosis/Pulmonary Embolism Present on Admission: No
[2022-09-05] MEDS: OLANZapine 5 MG TABLET PO PRN (19:52)
[2022-09-05] MEDS: diphenhydrAMINE 25 MG CAPSULE PO PRN (20:16)
[2022-09-05] MEDS: MONTELUKAST 10 MG TABLET PO SCH (20:17)
[2022-09-05] MEDS: PRAMIPEXOLE 0.25 MG TABLET PO SCH ×2 (20:17→21:59)
[2022-09-05] MEDS: SIMVASTATIN 10 MG TABLET PO SCH (20:17)
[2022-09-05] MEDS: QUEtiapine 25 MG TABLET PO PRN (20:17)
[2022-09-05] MEDS: AMITRIPTYLINE 25 MG TABLET PO SCH (20:17)
[2022-09-05] MEDS: MELATONIN 3 MG TABLET PO SCH (20:17)
[2022-09-05] MEDS: GABAPENTIN 300 MG CAPSULE PO SCH (20:17)
[2022-09-05] MEDS: ACETAMINOPHEN 325 MG TABLET PO PRN (20:17)
[2022-09-06] MEDS: 0.9 % SODIUM CHLORIDE 10 ML SYRINGE IV SCH ×3 (05:55→21:19)
[2022-09-06] MEDS: Fluticasone-Umeclidinium-Vilanterol [Trelegy Ellipta] Inhaler INH SCH (08:41)
[2022-09-06] MEDS: ENOXAPARIN 40 MG/0.4 ML SYRINGE SQ SCH (08:41)
[2022-09-06] MEDS: ASPIRIN 81 MG TAB.CHEW PO SCH (08:41)
[2022-09-06] MEDS ORDERED: DEXTROSE 31 GM ORAL.SUSP PO PRN ×2 (09:42→13:15)
[2022-09-06] MEDS ORDERED: DEXTROSE 50% 50 ML VIAL IV PRN ×2 (09:42→13:15)
[2022-09-06] MEDS: INSULIN LISPRO 1 UNIT/0.01 ML UNIT SQ SCH ×3 (13:05→21:19)
[2022-09-06] MEDS ORDERED: INSULIN LISPRO 1 UNIT/0.01 ML UNIT SQ SCH (17:00)
[2022-09-06] MEDS: QUEtiapine 25 MG TABLET PO PRN (19:14)
[2022-09-06] MEDS: GABAPENTIN 300 MG CAPSULE PO SCH (21:16)
[2022-09-06] MEDS: PRAMIPEXOLE 0.25 MG TABLET PO SCH (21:16)
[2022-09-06] MEDS: OLANZapine 5 MG TABLET PO PRN (21:17)
[2022-09-06] MEDS: MELATONIN 3 MG TABLET PO SCH (21:17)
[2022-09-06] MEDS: MONTELUKAST 10 MG TABLET PO SCH (21:17)
[2022-09-06] MEDS: AMITRIPTYLINE 25 MG TABLET PO SCH (21:17)
[2022-09-06] MEDS: SIMVASTATIN 10 MG TABLET PO SCH (21:17)
[2022-09-06] MEDS: diphenhydrAMINE 25 MG CAPSULE PO PRN (21:21)
[2022-09-07] MEDS: INSULIN LISPRO 1 UNIT/0.01 ML UNIT SQ SCH ×4 (07:52→21:43)
[2022-09-07] MEDS: ASPIRIN 81 MG TAB.CHEW PO SCH (09:32)
[2022-09-07] MEDS: ENOXAPARIN 40 MG/0.4 ML SYRINGE SQ SCH (09:32)
--- NOTE | 2022-09-07 10:34 | Internal Med Progress Note ---
SUBJECTIVE Subjective Patient information: Note initiated : 09/07/22 at 10:33 am Service Date, if different from initiated Date: [] Patient: Sharon Pierce a 81 y/o F admitted on 09/01/22 for N/v/d. Chief Complaint: [] Interval history: History of present illness: Ms. Pierce is a 81 year old F Patient is a poor historian given her dementia and most of the history is obtained from the chart. Sounds like she has had 3 days of nausea vomiting diarrhea most notably the diarrhea. Her family members unable to care for her at home. In the ED she was seen and evaluated and had a CT abdomen pelvis which showed no acute pathology but did show some bilateral ovarian cyst considered abnormal for her age and pelvic ultrasound was recommended. She was tachycardic at 120 but blood pressure was stable. Other vital signs are stable. Mild leukocytosis of 13. No lactic acidosis. Renal function Near baseline. C. difficile negative in the ED. 2/ Still having liquid brown stools. Pending stool studies. Leukocytosis present. UTI noted on UA from yesterday. Pelvic ultrasound shows bilateral cysts no solid masses. Chronic kidney disease with elevated creatinine. Awaiting home medication reconciliation. 2 Patient appears to be in good spirits today. No diarrhea overnight. at bedside. Leukocytosis resolved. Pending urine and stool cultures. 09/03 Patient impulsive and agitated at times yesterday. Restless last night. Calm and resting this morning. Pleasant this morning. Diarrhea much improved. Bowel movements now soft. Urine culture with Enterococcus and Aerococcus. 09/04 Diarrhea essentially resolved. Awaiting placement. Pleasant this morning. Awaiting placement. 09/05 Patient was restless last afternoon and early evening. Sitting her chair this morning pleasant and cooperative. 09/06 No significant events overnight, awaiting placement. 09/07 Vital stable overnight, no significant events since yesterday. The patient is in good spirits today, awaiting placement. Physical exam Head: Atraumatic, normal inspection. Eyes: normal appearance, no scleral icterus. Neck: full ROM Respiratory: no respiratory distress. Cardiovascular: normal rate and rhythm, S1, S2. GI/Abdominal: soft, nontender, no guarding. Extremities: full range of motion, nontender. Neurological: CN II-XII intact, intact motor, intact sensation. Psychiatric: Impaired cognition, normal mood. Skin: warm, normal color Constitutional Vitals: Vital Signs Temp Pulse Resp BP Pulse Ox O2 Del Method O2 Flow Rate 97.1 F 65 16 128/62 97 Room Air 0 09/07/22 08:00 09/07/22 08:00 09/07/22 08:00 09/07/22 08:00 09/07/22 08:00 09/07/22 08:00 09/05/22 20:00 Period Temp Pulse Resp BP Sys/Roberts Pulse Ox O2 Del Method O2 Flow Rate Last 24 Hr 97.0 F-98.1 F 65-85 16-18 123-160/48-72 95-98 Room Air-Room Air Intake and Output 09/06/22 09/07/22 09/07/22 19:59 03:59 11:59 Intake Total 440 800 300 Output Total 3 21 1 Balance 437 779 299 Weight 66.769 kg Intake & Output: Intake & Output 09/06/22 09/07/22 09/07/22 19:59 03:59 11:59 Intake Total 440 800 300 Output Total 3 21 1 Balance 437 779 299 Weight 66.769 kg Intake: Oral 440 800 300 Output: Void Amount 20 # of times incontinent of urine 3 1 1 Other: Meal Dinner Percent of Meal Consumed 25% Feeding Ability Assist with Tray Set Up Urine Color Yellow Stool Size Smear Stool Color Brown OBJ DATA Labs 09/02/22 05:50 09/02/22 05:50 Meds: Medications Acetaminophen (Acetaminophen 325 Mg Tablet) 650 mg PO Q6HP PRN; Protocol PRN Reason: Per Pain Protocol/Fever > 101 Last Admin: 09/05/22 20:17 Dose: 650 mg Albuterol/Ipratropium (Ipratropium/Albuterol 3 Ml Ampul.Neb) 3 ml NEB Q4HP PRN PRN Reason: Shortness Of Breath Amitriptyline HCl (Amitriptyline 25 Mg Tablet) 50 mg PO HS [facility] Last Admin: 09/06/22 21:17 Dose: 50 mg Aspirin (Aspirin 81 Mg Tab.Chew) 81 mg PO DAILY [facility] Last Admin: 09/07/22 09:32 Dose: 81 mg Dextrose (Dextrose 50% 50 Ml Vial) 0 ml IV UD PRN PRN Reason: Per Sliding Scale Diagnostic Test (Pha) (Accu-Chek 1 Each Strip) 1 each FS ACHS COUNTS INCLUDE 234 BEDS AT THE [facility] Last Admin: 09/07/22 07:49 Dose: 1 each Diphenhydramine HCl (Diphenhydramine 25 Mg Capsule) 25 mg PO HSP PRN PRN Reason: Insomnia Last Admin: 09/06/22 21:21 Dose: 25 mg Enoxaparin Sodium (Enoxaparin 40 Mg/0.4 Ml Syringe) 40 mg SQ DAILY [facility]S [facility]CLUDE 234 BEDS AT [facility] Last Admin: 09/07/22 09:32 Dose: 40 mg Gabapentin (Gabapentin 300 Mg Capsule) 300 mg PO HS [facility] 234 BEDS AT [facility] Last Admin: 09/06/22 21:16 Dose: 300 mg Glucose (Dextrose 31 Gm Oral.Susp) 15 gm PO PRN PRN PRN Reason: Hypoglycemia Potassium Chloride 40 meq/ (Dextrose) 520 mls @ 130 mls/hr IV UD PRN PRN Reason: Potassium < 3 Magnesium Sulfate (Magnesium Sulfate) 2 gm in 50 mls @ 50 mls/hr IV UD PRN PRN Reason: Magnesium </= 1.6 Insulin Human Lispro (Insulin Lispro 1 Unit/0.01 Ml Unit) 0 unit SQ [facility]; Protocol Last Admin: 09/07/22 07:52 Dose: Not Given Melatonin (Melatonin 3 Mg Tablet) 3 mg PO QHS [facility]S [facility]CLUDE 234 BEDS AT [facility] Last Admin: 09/06/22 21:17 Dose: 3 mg Montelukast Sodium (Montelukast 10 Mg Tablet) 10 mg PO QPM [facility]S [facility]CLUDE 234 BEDS AT [facility] Last Admin: 09/06/22 21:17 Dose: 10 mg Olanzapine (Olanzapine 5 Mg Tablet) 5 mg PO HSP PRN PRN Reason: Agitation Last Admin: 09/06/22 21:17 Dose: 5 mg Ondansetron HCl (Ondansetron 4 Mg/2 Ml Vial) 4 mg IV Q4HP PRN PRN Reason: Nausea And Vomiting Fluticasone- Umeclidinium- Vilanterol [Trelegy Ellipta] Inhaler 1 dose INH Q24H COUNTS INCLUDE 234 BEDS AT [facility] Last Admin: 09/06/22 08:41 Dose: 1 dose Potassium Chloride (Potassium Chloride 20 Meq Tablet) 40 meq PO UD PRN PRN Reason: Potssium is 3-3.5 Potassium Chloride (Potassium Chloride 20 Meq Tablet) 40 meq PO UD PRN PRN Reason: Potassium < 3 Pramipexole Dihydrochloride (Pramipexole 0.25 Mg Tablet) 0.25 - 0.5 mg PO HS [facility] Last Admin: 09/06/22 21:16 Dose: 0.5 mg Quetiapine Fumarate (Quetiapine 25 Mg Tablet) 25 mg PO HSP PRN PRN Reason: Agitation Last Admin: 09/06/22 19:14 Dose: 25 mg Simvastatin (Simvastatin 10 Mg Tablet) 10 mg PO HS [facility]CLUDE 234 BEDS AT [facility] Last Admin: 09/06/22 21:17 Dose: 10 mg A/P Narrative A/P Narrative: Assessment:81-year-old female with a history of hypertension, hyperlipidemia, type II diabetes mellitus, chronic kidney disease stage IIIb, COPD, dementia admitted for nausea, vomiting and diarrhea felt to be secondary to gastroenteritis. The patient's symptoms have significantly improved, she is currently awaiting placement for low intensity rehab. 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 -Monitor vitals, BP closely -SSI low-dose -PT/OT -CM for placement needs -ppx: Lovenox -CODE STATUS: DNR -Disposition: Low intensity rehab pending placement. Time Spent With Patient Time: Total time spent is greater than 50% in coordination of care (as documented) at patient's floor/unit and/or counseling patient: QUALITY VTE Deep Vein Thrombosis/Pulmonary Embolism Present on Admission: No
[2022-09-07] MEDS: Fluticasone-Umeclidinium-Vilanterol [Trelegy Ellipta] Inhaler INH SCH (10:47)
[2022-09-07] MEDS: PRAMIPEXOLE 0.25 MG TABLET PO SCH (21:51)
[2022-09-07] MEDS: SIMVASTATIN 10 MG TABLET PO SCH (21:51)
[2022-09-07] MEDS: GABAPENTIN 300 MG CAPSULE PO SCH (21:51)
[2022-09-07] MEDS: AMITRIPTYLINE 25 MG TABLET PO SCH (21:52)
[2022-09-07] MEDS: MONTELUKAST 10 MG TABLET PO SCH (21:52)
[2022-09-07] MEDS: MELATONIN 3 MG TABLET PO SCH (21:52)
[2022-09-08] MEDS: INSULIN LISPRO 1 UNIT/0.01 ML UNIT SQ SCH ×4 (07:08→21:32)
[2022-09-08] MEDS: ENOXAPARIN 40 MG/0.4 ML SYRINGE SQ SCH (08:37)
[2022-09-08] MEDS: ASPIRIN 81 MG TAB.CHEW PO SCH (08:37)
[2022-09-08] MEDS: Fluticasone-Umeclidinium-Vilanterol [Trelegy Ellipta] Inhaler INH SCH (09:08)
--- NOTE | 2022-09-08 11:07 | Internal Med Progress Note ---
SUBJECTIVE Subjective Patient information: Note initiated : 09/08/22 at 11:06 am Service Date, if different from initiated Date: [] Patient: Sharon Pierce a 81 y/o F admitted on 09/01/22 for N/v/d. Chief Complaint: [] Interval history: History of present illness: Ms. Pierce is a 81 year old F Patient is a poor historian given her dementia and most of the history is obtained from the chart. Sounds like she has had 3 days of nausea vomiting diarrhea most notably the diarrhea. Her family members unable to care for her at home. In the ED she was seen and evaluated and had a CT abdomen pelvis which showed no acute pathology but did show some bilateral ovarian cyst considered abnormal for her age and pelvic ultrasound was recommended. She was tachycardic at 120 but blood pressure was stable. Other vital signs are stable. Mild leukocytosis of 13. No lactic acidosis. Renal function Near baseline. C. difficile negative in the ED. 2/ Still having liquid brown stools. Pending stool studies. Leukocytosis present. UTI noted on UA from yesterday. Pelvic ultrasound shows bilateral cysts no solid masses. Chronic kidney disease with elevated creatinine. Awaiting home medication reconciliation. 2 Patient appears to be in good spirits today. No diarrhea overnight. at bedside. Leukocytosis resolved. Pending urine and stool cultures. 2 Patient impulsive and agitated at times yesterday. Restless last night. Calm and resting this morning. Pleasant this morning. Diarrhea much improved. Bowel movements now soft. Urine culture with Enterococcus and Aerococcus. 09/04 Diarrhea essentially resolved. Awaiting placement. Pleasant this morning. Awaiting placement. 09/05 Patient was restless last afternoon and early evening. Sitting her chair this morning pleasant and cooperative. 09/06 No significant events overnight, awaiting placement. 09/07 Vital stable overnight, no significant events since yesterday. The patient is in good spirits today, awaiting placement. 09/08 No changes since yesterday. The patient is pleasant and cooperative with cares. Awaiting placement. Physical exam Head: Atraumatic, normal inspection. Eyes: normal appearance, no scleral icterus. Neck: full ROM Respiratory: no respiratory distress. Cardiovascular: normal rate and rhythm, S1, S2. GI/Abdominal: soft, nontender, no guarding. Extremities: full range of motion, nontender. Neurological: CN II-XII intact, intact motor, intact sensation. Psychiatric: Impaired cognition, normal mood. Skin: warm, normal color Constitutional Vitals: Vital Signs Temp Pulse Resp BP Pulse Ox O2 Del Method O2 Flow Rate 97.6 F 79 18 121/60 95 Room Air 0 09/08/22 06:46 09/08/22 06:46 09/08/22 06:46 09/08/22 06:46 09/08/22 06:46 09/08/22 06:46 09/05/22 20:00 Period Temp Pulse Resp BP Sys/Roberts Pulse Ox O2 Del Method O2 Flow Rate Last 24 Hr 97.3 F-97.6 F 71-89 16-18 116-142/58-74 94-100 Room Air-Room Air Intake and Output 09/07/22 09/08/22 09/08/22 19:59 03:59 11:59 Intake Total 720 960 Output Total 5 253 Balance 715 707 Weight 66.769 kg 67.16 kg Intake & Output: Intake & Output 09/07/22 09/08/22 09/08/22 19:59 03:59 11:59 Intake Total 720 960 Output Total 5 253 Balance 715 707 Weight 66.769 kg 67.16 kg Intake: Oral 720 960 Output: Void Amount 250 # of times incontinent of urine 5 3 Other: Meal Dinner Breakfast Percent of Meal Consumed 100% 100% Feeding Ability Assist with Tray Set Up Urine Appearance Clear Urine Color Yellow Urine Odor Normal # Voids 2 OBJ DATA Labs 09/02/22 05:50 09/02/22 05:50 Meds: Medications Acetaminophen (Acetaminophen 325 Mg Tablet) 650 mg PO Q6HP PRN; Protocol PRN Reason: Per Pain Protocol/Fever > 101 Last Admin: 09/05/22 20:17 Dose: 650 mg Albuterol/Ipratropium (Ipratropium/Albuterol 3 Ml Ampul.Neb) 3 ml NEB Q4HP PRN PRN Reason: Shortness Of Breath Amitriptyline HCl (Amitriptyline 25 Mg Tablet) 50 mg PO HS [facility] Last Admin: 09/07/22 21:52 Dose: 50 mg Aspirin (Aspirin 81 Mg Tab.Chew) 81 mg PO DAILY [facility] Last Admin: 09/08/22 08:37 Dose: 81 mg Dextrose (Dextrose 50% 50 Ml Vial) 0 ml IV UD PRN PRN Reason: Per Sliding Scale Diagnostic Test (Pha) (Accu-Chek 1 Each Strip) 1 each FS [facility] Last Admin: 09/08/22 07:04 Dose: 1 each Diphenhydramine HCl (Diphenhydramine 25 Mg Capsule) 25 mg PO HSP PRN PRN Reason: Insomnia Last Admin: 09/06/22 21:21 Dose: 25 mg Enoxaparin Sodium (Enoxaparin 40 Mg/0.4 Ml Syringe) 40 mg SQ DAILY [facility] Last Admin: 09/08/22 08:37 Dose: 40 mg Gabapentin (Gabapentin 300 Mg Capsule) 300 mg PO HS [facility] Last Admin: 09/07/22 21:51 Dose: 300 mg Glucose (Dextrose 31 Gm Oral.Susp) 15 gm PO PRN PRN PRN Reason: Hypoglycemia Potassium Chloride 40 meq/ (Dextrose) 520 mls @ 130 mls/hr IV UD PRN PRN Reason: Potassium < 3 Magnesium Sulfate (Magnesium Sulfate) 2 gm in 50 mls @ 50 mls/hr IV UD PRN PRN Reason: Magnesium </= 1.6 Insulin Human Lispro (Insulin Lispro 1 Unit/0.01 Ml Unit) 0 unit SQ [facility]; Protocol Last Admin: 09/08/22 07:08 Dose: Not Given Melatonin (Melatonin 3 Mg Tablet) 3 mg PO QHS [facility] Last Admin: 09/07/22 21:52 Dose: 3 mg Montelukast Sodium (Montelukast 10 Mg Tablet) 10 mg PO QPM [facility] Last Admin: 09/07/22 21:52 Dose: 10 mg Olanzapine (Olanzapine 5 Mg Tablet) 5 mg PO HSP PRN PRN Reason: Agitation Last Admin: 09/06/22 21:17 Dose: 5 mg Ondansetron HCl (Ondansetron 4 Mg/2 Ml Vial) 4 mg IV Q4HP PRN PRN Reason: Nausea And Vomiting Fluticasone- Umeclidinium- Vilanterol [Trelegy Ellipta] Inhaler 1 dose INH Q24H [facility] Last Admin: 09/08/22 09:08 Dose: 1 dose Potassium Chloride (Potassium Chloride 20 Meq Tablet) 40 meq PO UD PRN PRN Reason: Potssium is 3-3.5 Potassium Chloride (Potassium Chloride 20 Meq Tablet) 40 meq PO UD PRN PRN Reason: Potassium < 3 Pramipexole Dihydrochloride (Pramipexole 0.25 Mg Tablet) 0.25 - 0.5 mg PO HS [facility] Last Admin: 09/07/22 21:51 Dose: 0.25 mg Quetiapine Fumarate (Quetiapine 25 Mg Tablet) 25 mg PO HSP PRN PRN Reason: Agitation Last Admin: 09/06/22 19:14 Dose: 25 mg Simvastatin (Simvastatin 10 Mg Tablet) 10 mg PO HS [facility] Last Admin: 09/07/22 21:51 Dose: 10 mg A/P Narrative A/P Narrative: Assessment:81-year-old female with a history of hypertension, hyperlipidemia, type II diabetes mellitus, chronic kidney disease stage IIIb, COPD, dementia admitted for nausea, vomiting and diarrhea felt to be secondary to gastroenteritis. The patient's symptoms have significantly improved, she is currently awaiting placement for low intensity rehab. 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 -Monitor vitals, BP closely -SSI low-dose -PT/OT -CM for placement needs -ppx: Lovenox -CODE STATUS: DNR -Disposition: Low intensity rehab pending placement. Time Spent With Patient Time: Total time spent is greater than 50% in coordination of care (as documented) at patient's floor/unit and/or counseling patient: QUALITY VTE Deep Vein Thrombosis/Pulmonary Embolism Present on Admission: No
[2022-09-08] MEDS: SIMVASTATIN 10 MG TABLET PO SCH (21:39)
[2022-09-08] MEDS: AMITRIPTYLINE 25 MG TABLET PO SCH (21:39)
[2022-09-08] MEDS: PRAMIPEXOLE 0.25 MG TABLET PO SCH (21:39)
[2022-09-08] MEDS: MELATONIN 3 MG TABLET PO SCH (21:39)
[2022-09-08] MEDS: GABAPENTIN 300 MG CAPSULE PO SCH (21:39)
[2022-09-08] MEDS: MONTELUKAST 10 MG TABLET PO SCH (21:39)
[2022-09-09] MEDS: INSULIN LISPRO 1 UNIT/0.01 ML UNIT SQ SCH ×4 (07:35→21:37)
--- NOTE | 2022-09-09 07:51 | Internal Med Progress Note ---
SUBJECTIVE Subjective Patient information: Note initiated : 09/09/22 at 7:49 am Service Date, if different from initiated Date: [] Patient: Sharon Pierce a 81 y/o F admitted on 09/01/22 for N/v/d. Chief Complaint: [] Interval history: History of present illness: Ms. Pierce is a 81 year old F Patient is a poor historian given her dementia and most of the history is obtained from the chart. Sounds like she has had 3 days of nausea vomiting diarrhea most notably the diarrhea. Her family members unable to care for her at home. In the ED she was seen and evaluated and had a CT abdomen pelvis which showed no acute pathology but did show some bilateral ovarian cyst considered abnormal for her age and pelvic ultrasound was recommended. She was tachycardic at 120 but blood pressure was stable. Other vital signs are stable. Mild leukocytosis of 13. No lactic acidosis. Renal function Near baseline. C. difficile negative in the ED. 2/ Still having liquid brown stools. Pending stool studies. Leukocytosis present. UTI noted on UA from yesterday. Pelvic ultrasound shows bilateral cysts no solid masses. Chronic kidney disease with elevated creatinine. Awaiting home medication reconciliation. 09/02 Patient appears to be in good spirits today. No diarrhea overnight. at bedside. Leukocytosis resolved. Pending urine and stool cultures. 09/03 Patient impulsive and agitated at times yesterday. Restless last night. Calm a nd resting this morning. Pleasant this morning. Diarrhea much improved. Bowel movements now soft. Urine culture with Enterococcus and Aerococcus. 09/04 Diarrhea essentially resolved. Awaiting placement. Pleasant this morning. Awaiting placement. 09/05 Patient was restless last afternoon and early evening. Sitting her chair this morning pleasant and cooperative. 09/06 No significant events overnight, awaiting placement. 09/07 Vital stable overnight, no significant events since yesterday. The patient is in good spirits today, awaiting placement. 09/08 No changes since yesterday. The patient is pleasant and cooperative with cares. Awaiting placement. 09/09 The patient is pleasant and cooperative with cares. Awaiting placement. Physical exam Head: Atraumatic, normal inspection. Eyes: normal appearance, no scleral icterus. Neck: full ROM Respiratory: no respiratory distress. Cardiovascular: normal rate and rhythm, S1, S2. GI/Abdominal: soft, nontender, no guarding. Extremities: full range of motion, nontender. Neurological: CN II-XII intact, intact motor, intact sensation. Psychiatric: Impaired cognition, normal mood. Skin: warm, normal color Constitutional Vitals: Vital Signs Temp Pulse Resp BP Pulse Ox O2 Del Method O2 Flow Rate 97.8 F 69 18 113/54 98 Room Air 0 09/09/22 04:34 09/09/22 04:34 09/09/22 04:34 09/09/22 04:34 09/09/22 04:34 09/09/22 04:34 09/05/22 20:00 Period Temp Pulse Resp BP Sys/Roberts Pulse Ox O2 Del Method O2 Flow Rate Last 24 Hr 97.5 F-98.1 F 69-87 16-18 113-141/54-70 98-100 Room Air-Room Air Intake and Output 09/08/22 09/09/22 09/09/22 19:59 03:59 11:59 Intake Total 240 200 Output Total 2 102 1 Balance 238 98 -1 Weight 66.82 kg Intake & Output: Intake & Output 09/08/22 09/09/22 09/09/22 19:59 03:59 11:59 Intake Total 240 200 Output Total 2 102 1 Balance 238 98 -1 Weight 66.82 kg Intake: Oral 240 200 Output: Void Amount 100 # of times incontinent of urine 2 2 1 Other: Meal Lunch Percent of Meal Consumed 75% Feeding Ability Assist with Tray Set Up Urine Appearance Clear Urine Color Yellow Yellow Yellow Urine Odor Foul Foul Foul # Voids 1 1 1 OBJ DATA Labs 09/02/22 05:50 09/02/22 05:50 Meds: Medications Acetaminophen (Acetaminophen 325 Mg Tablet) 650 mg PO Q6HP PRN; Protocol PRN Reason: Per Pain Protocol/Fever > 101 Last Admin: 09/05/22 20:17 Dose: 650 mg Albuterol/Ipratropium (Ipratropium/Albuterol 3 Ml Ampul.Neb) 3 ml NEB Q4HP PRN PRN Reason: Shortness Of Breath Amitriptyline HCl (Amitriptyline 25 Mg Tablet) 50 mg PO HS [facility] Last Admin: 09/08/22 21:39 Dose: 50 mg Aspirin (Aspirin 81 Mg Tab.Chew) 81 mg PO DAILY [facility] Last Admin: 09/08/22 08:37 Dose: 81 mg Dextrose (Dextrose 50% 50 Ml Vial) 0 ml IV UD PRN PRN Reason: Per Sliding Scale Diagnostic Test (Pha) (Accu-Chek 1 Each Strip) 1 each FS ACHS [facility] Last Admin: 09/09/22 07:35 Dose: 1 each Diphenhydramine HCl (Diphenhydramine 25 Mg Capsule) 25 mg PO HSP PRN PRN Reason: Insomnia Last Admin: 09/06/22 21:21 Dose: 25 mg Enoxaparin Sodium (Enoxaparin 40 Mg/0.4 Ml Syringe) 40 mg SQ DAILY [facility] Last Admin: 09/08/22 08:37 Dose: 40 mg Gabapentin (Gabapentin 300 Mg Capsule) 300 mg PO HS [facility] Last Admin: 09/08/22 21:39 Dose: 300 mg Glucose (Dextrose 31 Gm Oral.Susp) 15 gm PO PRN PRN PRN Reason: Hypoglycemia Potassium Chloride 40 meq/ (Dextrose) 520 mls @ 130 mls/hr IV UD PRN PRN Reason: Potassium < 3 Magnesium Sulfate (Magnesium Sulfate) 2 gm in 50 mls @ 50 mls/hr IV UD PRN PRN Reason: Magnesium </= 1.6 Insulin Human Lispro (Insulin Lispro 1 Unit/0.01 Ml Unit) 0 unit SQ [facility]; Protocol Last Admin: 09/09/22 07:35 Dose: Not Given Melatonin (Melatonin 3 Mg Tablet) 3 mg PO QHS [facility] Last Admin: 09/08/22 21:39 Dose: 3 mg Montelukast Sodium (Montelukast 10 Mg Tablet) 10 mg PO QPM [facility] Last Admin: 09/08/22 21:39 Dose: 10 mg Olanzapine (Olanzapine 5 Mg Tablet) 5 mg PO HSP PRN PRN Reason: Agitation Last Admin: 09/06/22 21:17 Dose: 5 mg Ondansetron HCl (Ondansetron 4 Mg/2 Ml Vial) 4 mg IV Q4HP PRN PRN Reason: Nausea And Vomiting Fluticasone- Umeclidinium- Vilanterol [Trelegy Ellipta] Inhaler 1 dose INH Q24H [facility] Last Admin: 09/08/22 09:08 Dose: 1 dose Potassium Chloride (Potassium Chloride 20 Meq Tablet) 40 meq PO UD PRN PRN Reason: Potssium is 3-3.5 Potassium Chloride (Potassium Chloride 20 Meq Tablet) 40 meq PO UD PRN PRN Reason: Potassium < 3 Pramipexole Dihydrochloride (Pramipexole 0.25 Mg Tablet) 0.25 - 0.5 mg PO HS [facility] Last Admin: 09/08/22 21:39 Dose: 0.25 mg Quetiapine Fumarate (Quetiapine 25 Mg Tablet) 25 mg PO HSP PRN PRN Reason: Agitation Last Admin: 09/06/22 19:14 Dose: 25 mg Simvastatin (Simvastatin 10 Mg Tablet) 10 mg PO HS [facility] Last Admin: 09/08/22 21:39 Dose: 10 mg A/P Narrative A/P Narrative: Assessment:81-year-old female with a history of hypertension, hyperlipidemia, type II diabetes mellitus, chronic kidney disease stage IIIb, COPD, dementia admitted for nausea, vomiting and diarrhea felt to be secondary to gastroenteritis. The patient's symptoms have resolved. She is back to her baseline and is currently awaiting placement for low intensity rehab. 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 -SSI low-dose -PT/OT -CM for placement needs -ppx: Lovenox -CODE STATUS: DNR -Disposition: Low intensity rehab pending placement. Time Spent With Patient Time: Total time spent is greater than 50% in coordination of care (as documented) at patient's floor/unit and/or counseling patient: QUALITY VTE Deep Vein Thrombosis/Pulmonary Embolism Present on Admission: No
[2022-09-09] MEDS: Fluticasone-Umeclidinium-Vilanterol [Trelegy Ellipta] Inhaler INH SCH (08:44)
[2022-09-09] MEDS: ASPIRIN 81 MG TAB.CHEW PO SCH (08:44)
[2022-09-09] MEDS: ENOXAPARIN 40 MG/0.4 ML SYRINGE SQ SCH (08:44)
[2022-09-09] MEDS: MONTELUKAST 10 MG TABLET PO SCH (21:38)
[2022-09-09] MEDS: MELATONIN 3 MG TABLET PO SCH (21:38)
[2022-09-09] MEDS: GABAPENTIN 300 MG CAPSULE PO SCH (21:38)
[2022-09-09] MEDS: PRAMIPEXOLE 0.25 MG TABLET PO SCH (21:38)
[2022-09-09] MEDS: SIMVASTATIN 10 MG TABLET PO SCH (21:38)
[2022-09-09] MEDS: AMITRIPTYLINE 25 MG TABLET PO SCH (21:39)
[2022-09-10] MEDS: INSULIN LISPRO 1 UNIT/0.01 ML UNIT SQ SCH ×4 (09:26→20:54)
[2022-09-10] MEDS: ASPIRIN 81 MG TAB.CHEW PO SCH (09:27)
[2022-09-10] MEDS: Fluticasone-Umeclidinium-Vilanterol [Trelegy Ellipta] Inhaler INH SCH (09:27)
[2022-09-10] MEDS: ENOXAPARIN 40 MG/0.4 ML SYRINGE SQ SCH (09:27)
--- NOTE | 2022-09-10 09:34 | Internal Med Progress Note ---
SUBJECTIVE Subjective Patient information: Note initiated : 09/10/22 at 9:31 am Service Date, if different from initiated Date: [] Patient: Sharon Pierce a 81 y/o F admitted on 09/01/22 for N/v/d. Chief Complaint: [] Interval history: History of present illness: Ms. Pierce is a 81 year old F Patient is a poor historian given her dementia and most of the history is obtained from the chart. Sounds like she has had 3 days of nausea vomiting diarrhea most notably the diarrhea. Her family members unable to care for her at home. In the ED she was seen and evaluated and had a CT abdomen pelvis which showed no acute pathology but did show some bilateral ovarian cyst considered abnormal for her age and pelvic ultrasound was recommended. She was tachycardic at 120 but blood pressure was stable. Other vital signs are stable. Mild leukocytosis of 13. No lactic acidosis. Renal function Near baseline. C. difficile negative in the ED. 2/ Still having liquid brown stools. Pending stool studies. Leukocytosis present. UTI noted on UA from yesterday. Pelvic ultrasound shows bilateral cysts no solid masses. Chronic kidney disease with elevated creatinine. Awaiting home medication reconciliation. 2 Patient appears to be in good spirits today. No diarrhea overnight. at bedside. Leukocytosis resolved. Pending urine and stool cultures. 09/03 Patient impulsive and agitated at times yesterday. Restless last night. Calm a nd resting this morning. Pleasant this morning. Diarrhea much improved. Bowel movements now soft. Urine culture with Enterococcus and Aerococcus. 09/04 Diarrhea essentially resolved. Awaiting placement. Pleasant this morning. Awaiting placement. 09/05 Patient was restless last afternoon and early evening. Sitting her chair this morning pleasant and cooperative. 09/06 No significant events overnight, awaiting placement. 09/07 Vital stable overnight, no significant events since yesterday. The patient is in good spirits today, awaiting placement. 09/08 No changes since yesterday. The patient is pleasant and cooperative with cares. Awaiting placement. 09/09 The patient is pleasant and cooperative with cares. Awaiting placement. 09/10 The patient has been pleasant and cooperative with cares for several days. Awaiting placement. Physical exam Head: Atraumatic, normal inspection. Eyes: normal appearance, no scleral icterus. Neck: full ROM Respiratory: no respiratory distress. Cardiovascular: normal rate and rhythm, S1, S2. GI/Abdominal: soft, nontender, no guarding. Extremities: full range of motion, nontender. Neurological: CN II-XII intact, intact motor, intact sensation. Psychiatric: Impaired cognition, normal mood. Skin: warm, normal color Constitutional Vitals: Vital Signs Temp Pulse Resp BP Pulse Ox O2 Del Method O2 Flow Rate 97.7 F 75 18 138/61 98 Room Air 0 09/10/22 04:17 09/10/22 04:17 09/10/22 04:17 09/10/22 04:17 09/10/22 04:17 09/10/22 04:17 09/09/22 20:00 Period Temp Pulse Resp BP Sys/Roberts Pulse Ox O2 Del Method O2 Flow Rate Last 24 Hr 97.1 F-98.0 F 71-88 14-19 119-149/53-63 98-100 Room Air-Room Air 0 Intake and Output 09/09/22 09/10/22 09/10/22 19:59 03:59 11:59 Output Total 2 1 Balance -2 -1 Weight 67.132 kg Intake & Output: Intake & Output 09/09/22 09/10/22 09/10/22 19:59 03:59 11:59 Output Total 2 1 Balance -2 -1 Weight 67.132 kg Output: # of times incontinent of urine 2 1 Other: Meal Dinner Percent of Meal Consumed 75% Feeding Ability Independent Urine Color Yellow Yellow Yellow Urine Odor Normal Normal # Voids 5 1 1 OBJ DATA Labs 09/02/22 05:50 09/02/22 05:50 Meds: Medications Acetaminophen (Acetaminophen 325 Mg Tablet) 650 mg PO Q6HP PRN; Protocol PRN Reason: Per Pain Protocol/Fever > 101 Last Admin: 09/05/22 20:17 Dose: 650 mg Albuterol/Ipratropium (Ipratropium/Albuterol 3 Ml Ampul.Neb) 3 ml NEB Q4HP PRN PRN Reason: Shortness Of Breath Amitriptyline HCl (Amitriptyline 25 Mg Tablet) 50 mg PO HS [facility] Last Admin: 09/09/22 21:39 Dose: 50 mg Aspirin (Aspirin 81 Mg Tab.Chew) 81 mg PO DAILY [facility] Last Admin: 09/10/22 09:27 Dose: 81 mg Dextrose (Dextrose 50% 50 Ml Vial) 0 ml IV UD PRN PRN Reason: Per Sliding Scale Diagnostic Test (Pha) (Accu-Chek 1 Each Strip) 1 each FS [facility] Last Admin: 09/10/22 09:26 Dose: 1 each Diphenhydramine HCl (Diphenhydramine 25 Mg Capsule) 25 mg PO HSP PRN PRN Reason: Insomnia Last Admin: 09/06/22 21:21 Dose: 25 mg Enoxaparin Sodium (Enoxaparin 40 Mg/0.4 Ml Syringe) 40 mg SQ DAILY [facility] Last Admin: 09/10/22 09:27 Dose: 40 mg Gabapentin (Gabapentin 300 Mg Capsule) 300 mg PO HS [facility] Last Admin: 09/09/22 21:38 Dose: 300 mg Glucose (Dextrose 31 Gm Oral.Susp) 15 gm PO PRN PRN PRN Reason: Hypoglycemia Potassium Chloride 40 meq/ (Dextrose) 520 mls @ 130 mls/hr IV UD PRN PRN Reason: Potassium < 3 Magnesium Sulfate (Magnesium Sulfate) 2 gm in 50 mls @ 50 mls/hr IV UD PRN PRN Reason: Magnesium </= 1.6 Insulin Human Lispro (Insulin Lispro 1 Unit/0.01 Ml Unit) 0 unit SQ [facility]; Protocol Last Admin: 09/10/22 09:26 Dose: Not Given Melatonin (Melatonin 3 Mg Tablet) 3 mg PO QHS [facility] Last Admin: 09/09/22 21:38 Dose: 3 mg Montelukast Sodium (Montelukast 10 Mg Tablet) 10 mg PO QPM [facility] Last Admin: 09/09/22 21:38 Dose: 10 mg Olanzapine (Olanzapine 5 Mg Tablet) 5 mg PO HSP PRN PRN Reason: Agitation Last Admin: 09/06/22 21:17 Dose: 5 mg Ondansetron HCl (Ondansetron 4 Mg/2 Ml Vial) 4 mg IV Q4HP PRN PRN Reason: Nausea And Vomiting Fluticasone- Umeclidinium- Vilanterol [Trelegy Ellipta] Inhaler 1 dose INH Q24H [facility] Last Admin: 09/10/22 09:27 Dose: 1 dose Potassium Chloride (Potassium Chloride 20 Meq Tablet) 40 meq PO UD PRN PRN Reason: Potssium is 3-3.5 Potassium Chloride (Potassium Chloride 20 Meq Tablet) 40 meq PO UD PRN PRN Reason: Potassium < 3 Pramipexole Dihydrochloride (Pramipexole 0.25 Mg Tablet) 0.25 - 0.5 mg PO HS [facility] Last Admin: 09/09/22 21:38 Dose: 0.25 mg Quetiapine Fumarate (Quetiapine 25 Mg Tablet) 25 mg PO HSP PRN PRN Reason: Agitation Last Admin: 09/06/22 19:14 Dose: 25 mg Simvastatin (Simvastatin 10 Mg Tablet) 10 mg PO [facility] Last Admin: 09/09/22 21:38 Dose: 10 mg A/P Narrative A/P Narrative: Assessment:81-year-old female with a history of hypertension, hyperlipidemia, type II diabetes mellitus, chronic kidney disease stage IIIb, COPD, dementia admitted for nausea, vomiting and diarrhea felt to be secondary to gastroenteritis. The patient's symptoms have resolved. She is back to her baseline and is currently awaiting placement for low intensity rehab. #Awaiting placement #Resolved gastroenteritis #Treated UTI #Resolved sepsis #Dementia #DM2 w/neuropathy: Hgb A1c 6.9 #COPD, not in exacerbation #HTN/HLD #CKDIIIb #Incidental bilateral ovarian cysts: pelvic US revealing cysts, no solid mass, f/u US outpt 3-6mos #Generalized weakness/deconditioning/inability to care for self P: -Awaiting placement. -SSI low-dose -PT/OT -CM for placement needs -ppx: Lovenox -CODE STATUS: DNR -Disposition: Low intensity rehab pending placement. Time Spent With Patient Time: Total time spent is greater than 50% in coordination of care (as documented) at patient's floor/unit and/or counseling patient: QUALITY VTE Deep Vein Thrombosis/Pulmonary Embolism Present on Admission: No
--- NOTE | 2022-09-10 12:49 | Internal Med Progress Note ---
SUBJECTIVE Subjective Patient information: Note initiated : 09/10/22 at 12:47 pm Service Date, if different from initiated Date: [] Patient: Sharon Pierce a 81 y/o F admitted on 09/01/22 for N/v/d. Chief Complaint: [] Interval history: History of present illness: Ms. Pierce is a 81 year old F Patient is a poor historian given her dementia and most of the history is obtained from the chart. Sounds like she has had 3 days of nausea vomiting diarrhea most notably the diarrhea. Her family members unable to care for her at home. In the ED she was seen and evaluated and had a CT abdomen pelvis which showed no acute pathology but did show some bilateral ovarian cyst considered abnormal for her age and pelvic ultrasound was recommended. She was tachycardic at 120 but blood pressure was stable. Other vital signs are stable. Mild leukocytosis of 13. No lactic acidosis. Renal function Near baseline. C. difficile negative in the ED. 2/ Still having liquid brown stools. Pending stool studies. Leukocytosis present. UTI noted on UA from yesterday. Pelvic ultrasound shows bilateral cysts no solid masses. Chronic kidney disease with elevated creatinine. Awaiting home medication reconciliation. 09/02 Patient appears to be in good spirits today. No diarrhea overnight. at bedside. Leukocytosis resolved. Pending urine and stool cultures. 09/03 Patient impulsive and agitated at times yesterday. Restless last night. Calm and resting this morning. Pleasant this morning. Diarrhea much improved. Bowel movements now soft. Urine culture with Enterococcus and Aerococcus. 09/04 Diarrhea essentially resolved. Awaiting placement. Pleasant this morning. Awaiting placement. 09/05 Patient was restless last afternoon and early evening. Sitting her chair this morning pleasant and cooperative. 09/06 No significant events overnight, awaiting placement. 09/07 Vital stable overnight, no significant events since yesterday. The patient is in good spirits today, awaiting placement. 09/08 No changes since yesterday. The patient is pleasant and cooperative with cares. Awaiting placement. 09/09 The patient is pleasant and cooperative with cares. Awaiting placement. 09/10 The patient has been pleasant and cooperative with cares for several days. Awaiting placement. Review of Systems: denies headache/fever/chills/nausea/vomiting/chest or abdominal pain/cough/dyspnea. Otherwise see above. PHYSICAL EXAM: General: Alert, Awake, No acute Distress Eyes/N/T: EOMI, Head/Neck: neck supple, CV: RRR, 3/6SM, Pulm: Clear b/l, no wheezing/rhonchi/rales Abd: soft, nontender, +BS x4 Ext: no clubbing/cyanosis, mild LLE edema Neuro: Alert, no focal deficits, moves all extremities, Skin: warm/dry Constitutional Vitals: Vital Signs Temp Pulse Resp BP Pulse Ox O2 Del Method O2 Flow Rate 97.1 F 71 16 144/60 98 Room Air 0 09/10/22 12:00 09/10/22 12:00 09/10/22 12:00 09/10/22 12:00 09/10/22 12:00 09/10/22 12:00 09/09/22 20:00 Period Temp Pulse Resp BP Sys/Roberts Pulse Ox O2 Del Method O2 Flow Rate Last 24 Hr 97.1 F-98.0 F 71-77 16-19 119-149/53-63 98-99 Room Air-Room Air 0 Intake and Output 09/10/22 09/10/22 09/10/22 03:59 11:59 19:59 Output Total 2 1 Balance -2 -1 Weight 67.132 kg Intake & Output: Intake & Output 09/10/22 09/10/22 09/10/22 03:59 11:59 19:59 Output Total 2 1 Balance -2 -1 Weight 67.132 kg Output: # of times incontinent of urine 2 1 Other: Urine Color Yellow Yellow Urine Odor Normal Normal # Voids 1 1 OBJ DATA Labs 09/02/22 05:50 09/02/22 05:50 Meds: Medications Acetaminophen (Acetaminophen 325 Mg Tablet) 650 mg PO Q6HP PRN; Protocol PRN Reason: Per Pain Protocol/Fever > 101 Last Admin: 09/05/22 20:17 Dose: 650 mg Albuterol/Ipratropium (Ipratropium/Albuterol 3 Ml Ampul.Neb) 3 ml NEB Q4HP PRN PRN Reason: Shortness Of Breath Amitriptyline HCl (Amitriptyline 25 Mg Tablet) 50 mg PO HS [facility] Last Admin: 09/09/22 21:39 Dose: 50 mg Aspirin (Aspirin 81 Mg Tab.Chew) 81 mg PO DAILY [facility] Last Admin: 09/10/22 09:27 Dose: 81 mg Dextrose (Dextrose 50% 50 Ml Vial) 0 ml IV UD PRN PRN Reason: Per Sliding Scale Diagnostic Test (Pha) (Accu-Chek 1 Each Strip) 1 each FS ACHS [facility] Last Admin: 09/10/22 11:52 Dose: 1 each Diphenhydramine HCl (Diphenhydramine 25 Mg Capsule) 25 mg PO HSP PRN PRN Reason: Insomnia Last Admin: 09/06/22 21:21 Dose: 25 mg Enoxaparin Sodium (Enoxaparin 40 Mg/0.4 Ml Syringe) 40 mg SQ DAILY [facility] Last Admin: 09/10/22 09:27 Dose: 40 mg Gabapentin (Gabapentin 300 Mg Capsule) 300 mg PO HS [facility] Last Admin: 09/09/22 21:38 Dose: 300 mg Glucose (Dextrose 31 Gm Oral.Susp) 15 gm PO PRN PRN PRN Reason: Hypoglycemia Potassium Chloride 40 meq/ (Dextrose) 520 mls @ 130 mls/hr IV UD PRN PRN Reason: Potassium < 3 Magnesium Sulfate (Magnesium Sulfate) 2 gm in 50 mls @ 50 mls/hr IV UD PRN PRN Reason: Magnesium </= 1.6 Insulin Human Lispro (Insulin Lispro 1 Unit/0.01 Ml Unit) 0 unit SQ [facility]; Protocol Last Admin: 09/10/22 11:52 Dose: Not Given Melatonin (Melatonin 3 Mg Tablet) 3 mg PO QHS [facility] Last Admin: 09/09/22 21:38 Dose: 3 mg Montelukast Sodium (Montelukast 10 Mg Tablet) 10 mg PO QPM [facility] Last Admin: 09/09/22 21:38 Dose: 10 mg Olanzapine (Olanzapine 5 Mg Tablet) 5 mg PO HSP PRN PRN Reason: Agitation Last Admin: 09/06/22 21:17 Dose: 5 mg Ondansetron HCl (Ondansetron 4 Mg/2 Ml Vial) 4 mg IV Q4HP PRN PRN Reason: Nausea And Vomiting Fluticasone- Umeclidinium- Vilanterol [Trelegy Ellipta] Inhaler 1 dose INH Q24H [facility] Last Admin: 09/10/22 09:27 Dose: 1 dose Potassium Chloride (Potassium Chloride 20 Meq Tablet) 40 meq PO UD PRN PRN Reason: Potssium is 3-3.5 Potassium Chloride (Potassium Chloride 20 Meq Tablet) 40 meq PO UD PRN PRN Reason: Potassium < 3 Pramipexole Dihydrochloride (Pramipexole 0.25 Mg Tablet) 0.25 - 0.5 mg PO HS [facility] Last Admin: 09/09/22 21:38 Dose: 0.25 mg Quetiapine Fumarate (Quetiapine 25 Mg Tablet) 25 mg PO HSP PRN PRN Reason: Agitation Last Admin: 09/06/22 19:14 Dose: 25 mg Simvastatin (Simvastatin 10 Mg Tablet) 10 mg PO HS [facility] Last Admin: 09/09/22 21:38 Dose: 10 mg A/P Narrative A/P Narrative: A: *Gastroenteritis(Diarrhea and N/V):improved -cdiff neg *UTI(Enterococcus/Aerococcus): treated *Sepsis: resolved *Volume depletion: improved *Dementia: *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
[2022-09-10] MEDS: GABAPENTIN 300 MG CAPSULE PO SCH (20:48)
[2022-09-10] MEDS: SIMVASTATIN 10 MG TABLET PO SCH (20:48)
[2022-09-10] MEDS: AMITRIPTYLINE 25 MG TABLET PO SCH (20:48)
[2022-09-10] MEDS: MELATONIN 3 MG TABLET PO SCH (20:48)
[2022-09-10] MEDS: PRAMIPEXOLE 0.25 MG TABLET PO SCH (20:48)
[2022-09-10] MEDS: MONTELUKAST 10 MG TABLET PO SCH (20:55)
[2022-09-10] MEDS: QUEtiapine 25 MG TABLET PO PRN (21:02)
[2022-09-11] MEDS: INSULIN LISPRO 1 UNIT/0.01 ML UNIT SQ SCH ×4 (07:23→20:28)
--- NOTE | 2022-09-11 07:30 | Internal Med Progress Note ---
SUBJECTIVE Subjective Patient information: Note initiated : 09/11/22 at 7:28 am Service Date, if different from initiated Date: [] Patient: Sharon Pierce a 81 y/o F admitted on 09/01/22 for N/v/d. Chief Complaint: [] Interval history: History of present illness: Ms. Pierce is a 81 year old F Patient is a poor historian given her dementia and most of the history is obtained from the chart. Sounds like she has had 3 days of nausea vomiting diarrhea most notably the diarrhea. Her family members unable to care for her at home. In the ED she was seen and evaluated and had a CT abdomen pelvis which showed no acute pathology but did show some bilateral ovarian cyst considered abnormal for her age and pelvic ultrasound was recommended. She was tachycardic at 120 but blood pressure was stable. Other vital signs are stable. Mild leukocytosis of 13. No lactic acidosis. Renal function Near baseline. C. difficile negative in the ED. 2/ Still having liquid brown stools. Pending stool studies. Leukocytosis present. UTI noted on UA from yesterday. Pelvic ultrasound shows bilateral cysts no solid masses. Chronic kidney disease with elevated creatinine. Awaiting home medication reconciliation. 2 Patient appears to be in good spirits today. No diarrhea overnight. at bedside. Leukocytosis resolved. Pending urine and stool cultures. 09/03 Patient impulsive and agitated at times yesterday. Restless last night. Calm a nd resting this morning. Pleasant this morning. Diarrhea much improved. Bowel movements now soft. Urine culture with Enterococcus and Aerococcus. 09/04 Diarrhea essentially resolved. Awaiting placement. Pleasant this morning. Awaiting placement. 09/05 Patient was restless last afternoon and early evening. Sitting her chair this morning pleasant and cooperative. 09/06 No significant events overnight, awaiting placement. 09/07 Vital stable overnight, no significant events since yesterday. The patient is in good spirits today, awaiting placement. 09/08 No changes since yesterday. The patient is pleasant and cooperative with cares. Awaiting placement. 09/09 The patient is pleasant and cooperative with cares. Awaiting placement. 09/10 The patient has been pleasant and cooperative with cares for several days. Awaiting placement. 09/11 Again patient cooperative last night. No over night issues. Review of Systems: denies headache/fever/chills/nausea/vomiting/chest or abdominal pain/c ough/dyspnea. Otherwise see above. PHYSICAL EXAM: General: Alert, Awake, No acute Distress Eyes/N/T: EOMI, Head/Neck: neck supple, CV: RRR, 3/6SM, Pulm: Clear b/l, no wheezing/rhonchi/rales Abd: soft, nontender, +BS x4 Ext: no clubbing/cyanosis, trace LLE edema Neuro: Alert, no focal deficits, moves all extremities, Skin: warm/dry Constitutional Vitals: Vital Signs Temp Pulse Resp BP Pulse Ox O2 Del Method O2 Flow Rate 97.3 F 77 18 142/67 96 Room Air 0 09/11/22 02:56 09/11/22 02:56 09/11/22 02:56 09/11/22 02:56 09/11/22 02:56 09/11/22 02:56 09/09/22 20:00 Period Temp Pulse Resp BP Sys/Roberts Pulse Ox O2 Del Method O2 Flow Rate Last 24 Hr 97.1 F-97.5 F 68-80 16-18 133-168/60-75 95-99 Room Air-Room Air Intake and Output 09/10/22 09/11/22 09/11/22 19:59 03:59 11:59 Output Total 4 Balance -4 Weight 65.969 kg Intake & Output: Intake & Output 09/10/22 09/11/22 09/11/22 19:59 03:59 11:59 Output Total 4 Balance -4 Weight 65.969 kg Output: # of times incontinent of urine 4 Other: Meal Lunch Percent of Meal Consumed 100% Feeding Ability Independent Urine Appearance Clear Clear Urine Color Yellow Urine Odor Normal Normal Stool Size Small Small Stool Color Brown Brown Stool Consistency Formed Formed # Voids 3 4 Exam: General: Alert, Awake, No acute Distress Eyes/N/T: EOMI, Head/Neck: neck supple, CV: RRR, 3/6SM, Pulm: Clear b/l, no wheezing/rhonchi/rales Abd: soft, nontender, +BS x4 Ext: no clubbing/cyanosis, mild LLE edema Neuro: Alert, no focal deficits, moves all extremities, Skin: warm/dry OBJ DATA Labs 09/02/22 05:50 09/02/22 05:50 Meds: Medications Acetaminophen (Acetaminophen 325 Mg Tablet) 650 mg PO Q6HP PRN; Protocol PRN Reason: Per Pain Protocol/Fever > 101 Last Admin: 09/05/22 20:17 Dose: 650 mg Albuterol/Ipratropium (Ipratropium/Albuterol 3 Ml Ampul.Neb) 3 ml NEB Q4HP PRN PRN Reason: Shortness Of Breath Amitriptyline HCl (Amitriptyline 25 Mg Tablet) 50 mg PO HS [facility] Last Admin: 09/10/22 20:48 Dose: 50 mg Aspirin (Aspirin 81 Mg Tab.Chew) 81 mg PO DAILY [facility] Last Admin: 09/10/22 09:27 Dose: 81 mg Dextrose (Dextrose 50% 50 Ml Vial) 0 ml IV UD PRN PRN Reason: Per Sliding Scale Diagnostic Test (Pha) (Accu-Chek 1 Each Strip) 1 each FS ACHS [facility] Last Admin: 09/11/22 07:23 Dose: 1 each Diphenhydramine HCl (Diphenhydramine 25 Mg Capsule) 25 mg PO HSP PRN PRN Reason: Insomnia Last Admin: 09/06/22 21:21 Dose: 25 mg Enoxaparin Sodium (Enoxaparin 40 Mg/0.4 Ml Syringe) 40 mg SQ DAILY [facility] Last Admin: 09/10/22 09:27 Dose: 40 mg Gabapentin (Gabapentin 300 Mg Capsule) 300 mg PO HS [facility] Last Admin: 09/10/22 20:48 Dose: 300 mg Glucose (Dextrose 31 Gm Oral.Susp) 15 gm PO PRN PRN PRN Reason: Hypoglycemia Potassium Chloride 40 meq/ (Dextrose) 520 mls @ 130 mls/hr IV UD PRN PRN Reason: Potassium < 3 Magnesium Sulfate (Magnesium Sulfate) 2 gm in 50 mls @ 50 mls/hr IV UD PRN PRN Reason: Magnesium </= 1.6 Insulin Human Lispro (Insulin Lispro 1 Unit/0.01 Ml Unit) 0 unit SQ [facility]; Protocol Last Admin: 09/11/22 07:23 Dose: Not Given Melatonin (Melatonin 3 Mg Tablet) 3 mg PO QHS [facility] Last Admin: 09/10/22 20:48 Dose: 3 mg Montelukast Sodium (Montelukast 10 Mg Tablet) 10 mg PO QPM [facility] Last Admin: 09/10/22 20:55 Dose: 10 mg Olanzapine (Olanzapine 5 Mg Tablet) 5 mg PO HSP PRN PRN Reason: Agitation Last Admin: 09/06/22 21:17 Dose: 5 mg Ondansetron HCl (Ondansetron 4 Mg/2 Ml Vial) 4 mg IV Q4HP PRN PRN Reason: Nausea And Vomiting Fluticasone- Umeclidinium- Vilanterol [Trelegy Ellipta] Inhaler 1 dose INH Q24H [facility] Last Admin: 09/10/22 09:27 Dose: 1 dose Potassium Chloride (Potassium Chloride 20 Meq Tablet) 40 meq PO UD PRN PRN Reason: Potssium is 3-3.5 Potassium Chloride (Potassium Chloride 20 Meq Tablet) 40 meq PO UD PRN PRN Reason: Potassium < 3 Pramipexole Dihydrochloride (Pramipexole 0.25 Mg Tablet) 0.25 - 0.5 mg PO HS [facility] Last Admin: 09/10/22 20:48 Dose: 0.25 mg Quetiapine Fumarate (Quetiapine 25 Mg Tablet) 25 mg PO HSP PRN PRN Reason: Agitation Last Admin: 09/10/22 21:02 Dose: 25 mg Simvastatin (Simvastatin 10 Mg Tablet) 10 mg PO HS [facility] Last Admin: 09/10/22 20:48 Dose: 10 mg A/P Narrative A/P Narrative: A: *Gastroenteritis(Diarrhea and N/V):improved -cdiff neg, fecal wbc neg *UTI(Enterococcus/Aerococcus): treated *Sepsis: resolved *Volume depletion: improved *Dementia: *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 *COPD( ): monitor *HTN/HLD: *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
[2022-09-11] MEDS: ENOXAPARIN 40 MG/0.4 ML SYRINGE SQ SCH (08:46)
[2022-09-11] MEDS: ASPIRIN 81 MG TAB.CHEW PO SCH (08:47)
[2022-09-11] MEDS: Fluticasone-Umeclidinium-Vilanterol [Trelegy Ellipta] Inhaler INH SCH (08:47)
--- NOTE | 2022-09-11 09:58 | Discharge Summary ---
Discharge Provider Provider IMPORTANT FOLLOW-UP INFORMATION FOR PCP: *Incidental bilateral ovarian cysts: pelvic US revealing cysts, no solid mass, f/u US outpt 3-6mos. Patient information: Note initiated : 09/11/22 at 9:57 am Service Date, if different from initiated Date: [] Patient: Sharon Pierce a 81 y/o F admitted on 09/01/22 for N/v/d. Chief Complaint: [] Date of admission: 09/01/22 07:48 Primary care physician: Rosaura Andrews Consults: 08/31/22 Consult to Physician [CONS] Stat Comment: Consulting Provider: Benjamin Grubbs Reason For Exam: Physician to Consult 09/04/22 09:05 Consult to Physician [CONS] Routine Comment: snf referral Consulting Provider: [facility]aved Reason For Exam: Physician to Consult COURSE Hospital Course Hospital course: History of present illness: Ms. Pierce is a 81 year old F Patient is a poor historian given her dementia and most of the history is obtained from the chart. Sounds like she has had 3 days of nausea vomiting diarrhea most notably the diarrhea. Her family members unable to care for her at home. In the ED she was seen and evaluated and had a CT abdomen pelvis which showed no acute pathology but did show some bilateral ovarian cyst considered abnormal for her age and pelvic ultrasound was recommended. She was tachycardic at 120 but blood pressure was stable. Other vital signs are stable. Mild leukocytosis of 13. No lactic acidosis. Renal function Near baseline. C. difficile negative in the ED. 2/3 Still having liquid brown stools. Pending stool studies. Leukocytosis present. UTI noted on UA from yesterday. Pelvic ultrasound shows bilateral cysts no solid masses. Chronic kidney disease with elevated creatinine. Awaiting home medication reconciliation. 2/ Patient appears to be in good spirits today. No diarrhea overnight. at bedside. Leukocytosis resolved. Pending urine and stool cultures. 2/ Patient impulsive and agitated at times yesterday. Restless last night. Calm and resting this morning. Pleasant this morning. Diarrhea much improved. Bowel movements now soft. Urine culture with Enterococcus and Aerococcus. 2 Diarrhea essentially resolved. Awaiting placement. Pleasant this morning. Awaiting placement. 2 Patient was restless last afternoon and early evening. Sitting her chair this morning pleasant and cooperative. 2 No significant events overnight, awaiting placement. 09/07 Vital stable overnight, no significant events since yesterday. The patient is in good spirits today, awaiting placement. 09/08 No changes since yesterday. The patient is pleasant and cooperative with cares. Awaiting placement. 09/09 The patient is pleasant and cooperative with cares. Awaiting placement. 09/10 The patient has been pleasant and cooperative with cares for several days. Awaiting placement. 09/11 Again patient cooperative last night. No over night issues. 09/12 Doing well. Sitting up at bedside. No overnight events or new complaints. 09/13 Sleeping but awakens. No overnight event or new complaints. 09/14 No changes overnight. Patient pleasant. Awaiting placement. 09/15 Patient happy and pleasant this morning. Sitting up in chair. Awaiting placement. Patient will require long-term care placement for her safety. 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 *COPD( ): *HTN/HLD: *CKDIIIb: *Incidental bilateral ovarian cysts: pelvic US revealing cysts, no solid mass, f/u US outpt 3-6mos *Generalized weakness/deconditioning/inability to care for self Time Spent with Patient Time attestation: Total time spent providing and/or coordinating discharge services: EXAM Constitutional Vitals: Temp Pulse Resp BP Pulse Ox O2 Del Method O2 Flow Rate 97.4 F 72 18 112/48 98 Room Air 0 09/11/22 08:00 09/11/22 08:00 09/11/22 08:00 09/11/22 08:00 09/11/22 08:00 09/11/22 08:00 09/09/22 20:00 Discharge Plan Patient/Caregiver Discharge Instructions Activity: increase activity as tolerated Diet: Consistent Carbohydrate Prescriptions: Continued pramipexole 0.25 mg tablet See Rx Instructions .ROUTE .COMPLEX Qty: 120 3RF Rx Instructions: 1-2 tabs QHS amitriptyline 50 mg tablet 50 mg tablet 50 mg PO QHS Qty: 90 3RF Rx Instructions: 1 po hs montelukast 10 mg tablet 10 mg PO QPM Qty: 90 0RF pravastatin 10 mg tablet 10 mg PO QDAY Qty: 90 3RF aspirin 81 mg tablet,delayed release (DR/EC) 81 mg PO QDAY acetaminophen 325 mg tablet 650 mg PO Q4H PRN (Reason: Fever Or Pain) Lactobacillus rhamnosus GG [Culturelle] 1 cap PO QDAY albuterol sulfate [ProAir HFA] 90 mcg/actuation HFA aerosol inhaler 2 puff INHALATION Q6H PRN (Reason: shortness of breath or wheezing) Qty: 8.5 6RF Trelegy Ellipta 200-62.5-25 mcg blister with device 1 inh inhalation Q24H Qty: 60 11RF Rx Instructions: Vigorously gargle, rinse, and spit after each use polyethylene glycol 3350 [Miralax] 17 gram/dose powder 4 g PO ONCE Qty: 510 2RF docusate sodium [Dulcolax Stool Softener (dss)] 100 mg capsule 100 mg PO BID Qty: 60 2RF losartan 25 mg Tablet 12.5 mg PO DAILY gabapentin 300 mg capsule 300 mg PO HS Follow Up Plan Follow up with: Rosaura Andrews ARNP [Primary Care Provider] - Patient Disposition: Xfer SNF Prognosis: Fair Rehab Potential: Fair I certify that the patient requires SNF services: Yes Overall status at discharge: patient is progressing back to baseline QUALITY VTE Deep Vein Thrombosis/Pulmonary Embolism Present on Admission: No
[2022-09-11] MEDS: OLANZapine 5 MG TABLET PO PRN (19:08)
[2022-09-11] MEDS: MELATONIN 3 MG TABLET PO SCH (20:27)
[2022-09-11] MEDS: AMITRIPTYLINE 25 MG TABLET PO SCH (20:27)
[2022-09-11] MEDS: GABAPENTIN 300 MG CAPSULE PO SCH (20:27)
[2022-09-11] MEDS: MONTELUKAST 10 MG TABLET PO SCH (20:27)
[2022-09-11] MEDS: PRAMIPEXOLE 0.25 MG TABLET PO SCH (20:27)
[2022-09-11] MEDS: SIMVASTATIN 10 MG TABLET PO SCH (20:27)
[2022-09-11] MEDS: QUEtiapine 25 MG TABLET PO PRN (22:50)
--- NOTE | 2022-09-12 07:27 | Internal Med Progress Note ---
SUBJECTIVE Subjective Patient information: Note initiated : 09/12/22 at 7:27 am Service Date, if different from initiated Date: [] Patient: Sharon Pierce a 81 y/o F admitted on 09/01/22 for N/v/d. Chief Complaint: [] Interval history: History of present illness: Ms. Pierce is a 81 year old F Patient is a poor historian given her dementia and most of the history is obtained from the chart. Sounds like she has had 3 days of nausea vomiting diarrhea most notably the diarrhea. Her family members unable to care for her at home. In the ED she was seen and evaluated and had a CT abdomen pelvis which showed no acute pathology but did show some bilateral ovarian cyst considered abnormal for her age and pelvic ultrasound was recommended. She was tachycardic at 120 but blood pressure was stable. Other vital signs are stable. Mild leukocytosis of 13. No lactic acidosis. Renal function Near baseline. C. difficile negative in the ED. 2/ Still having liquid brown stools. Pending stool studies. Leukocytosis present. UTI noted on UA from yesterday. Pelvic ultrasound shows bilateral cysts no solid masses. Chronic kidney disease with elevated creatinine. Awaiting home medication reconciliation. 09/02 Patient appears to be in good spirits today. No diarrhea overnight. at bedside. Leukocytosis resolved. Pending urine and stool cultures. 09/03 Patient impulsive and agitated at times yesterday. Restless last night. Calm a nd resting this morning. Pleasant this morning. Diarrhea much improved. Bowel movements now soft. Urine culture with Enterococcus and Aerococcus. 09/04 Diarrhea essentially resolved. Awaiting placement. Pleasant this morning. Awaiting placement. 09/05 Patient was restless last afternoon and early evening. Sitting her chair this morning pleasant and cooperative. 09/06 No significant events overnight, awaiting placement. 09/07 Vital stable overnight, no significant events since yesterday. The patient is in good spirits today, awaiting placement. 09/08 No changes since yesterday. The patient is pleasant and cooperative with cares. Awaiting placement. 09/09 The patient is pleasant and cooperative with cares. Awaiting placement. 09/10 The patient has been pleasant and cooperative with cares for several days. Awaiting placement. 09/11 Again patient cooperative last night. No over night issues. 09/12 Doing well. Sitting up at bedside. No overnight events or new complaints. Review of Systems: denies headache/fever/chills/nausea/vomiting/chest or abdominal pain/cough/dyspnea. Otherwise see above. PHYSICAL EXAM: General: Alert, Awake, No acute Distress Eyes/N/T: EOMI, Head/Neck: neck supple, CV: RRR, 3/6SM, Pulm: Clear b/l, no wheezing/rhonchi/rales Abd: soft, nontender, +BS x4 Ext: no clubbing/cyanosis, trace LLE edema Neuro: Alert, no focal deficits, moves all extremities, Skin: warm/dry Constitutional Vitals: Vital Signs Temp Pulse Resp BP Pulse Ox O2 Del Method O2 Flow Rate 97.9 F 70 20 117/64 96 Room Air 0 09/12/22 04:00 09/12/22 04:00 09/12/22 04:00 09/12/22 04:00 09/12/22 04:00 09/12/22 04:00 09/09/22 20:00 Period Temp Pulse Resp BP Sys/Roberts Pulse Ox O2 Del Method O2 Flow Rate Last 24 Hr 97.4 F-97.9 F 66-78 16-20 112-151/48-70 96-100 Room Air-Room Air Intake and Output 09/11/22 09/12/22 09/12/22 19:59 03:59 11:59 Intake Total 540 360 Output Total 2 1 4 Balance 538 -1 356 Weight 66.179 kg Intake & Output: Intake & Output 09/11/22 09/12/22 09/12/22 19:59 03:59 11:59 Intake Total 540 360 Output Total 2 1 4 Balance 538 -1 356 Weight 66.179 kg Intake: Oral 540 360 Output: # of times incontinent of urine 2 1 4 Other: Meal Dinner Percent of Meal Consumed 100% Feeding Ability Assist with Tray Set Up Urine Appearance Clear Urine Color Yellow Yellow Urine Odor Normal Stool Size Small Small Stool Color Brown Brown Stool Consistency Formed Formed Eliane # Voids 3 4 # Bowel Movements 2 OBJ DATA Labs 09/02/22 05:50 09/02/22 05:50 Meds: Medications Acetaminophen (Acetaminophen 325 Mg Tablet) 650 mg PO Q6HP PRN; Protocol PRN Reason: Per Pain Protocol/Fever > 101 Last Admin: 09/05/22 20:17 Dose: 650 mg Albuterol/Ipratropium (Ipratropium/Albuterol 3 Ml Ampul.Neb) 3 ml NEB Q4HP PRN PRN Reason: Shortness Of Breath Amitriptyline HCl (Amitriptyline 25 Mg Tablet) 50 mg PO HS [facility] Last Admin: 09/11/22 20:27 Dose: 50 mg Aspirin (Aspirin 81 Mg Tab.Chew) 81 mg PO DAILY [facility] Last Admin: 09/11/22 08:47 Dose: 81 mg Dextrose (Dextrose 50% 50 Ml Vial) 0 ml IV UD PRN PRN Reason: Per Sliding Scale Diagnostic Test (Pha) (Accu-Chek 1 Each Strip) 1 each FS [facility] REPLACED BY [facility] Last Admin: 09/11/22 20:28 Dose: 1 each Diphenhydramine HCl (Diphenhydramine 25 Mg Capsule) 25 mg PO HSP PRN PRN Reason: Insomnia Last Admin: 09/06/22 21:21 Dose: 25 mg Enoxaparin Sodium (Enoxaparin 40 Mg/0.4 Ml Syringe) 40 mg SQ DAILY [facility] Last Admin: 09/11/22 08:46 Dose: 40 mg Gabapentin (Gabapentin 300 Mg Capsule) 300 mg PO HS [facility] Last Admin: 09/11/22 20:27 Dose: 300 mg Glucose (Dextrose 31 Gm Oral.Susp) 15 gm PO PRN PRN PRN Reason: Hypoglycemia Potassium Chloride 40 meq/ (Dextrose) 520 mls @ 130 mls/hr IV UD PRN PRN Reason: Potassium < 3 Magnesium Sulfate (Magnesium Sulfate) 2 gm in 50 mls @ 50 mls/hr IV UD PRN PRN Reason: Magnesium </= 1.6 Insulin Human Lispro (Insulin Lispro 1 Unit/0.01 Ml Unit) 0 unit SQ ACHS [facility]; Protocol Last Admin: 09/11/22 20:28 Dose: Not Given Melatonin (Melatonin 3 Mg Tablet) 3 mg PO QHS [facility] Last Admin: 09/11/22 20:27 Dose: 3 mg Montelukast Sodium (Montelukast 10 Mg Tablet) 10 mg PO QPM [facility] Last Admin: 09/11/22 20:27 Dose: 10 mg Olanzapine (Olanzapine 5 Mg Tablet) 5 mg PO HSP PRN PRN Reason: Agitation Last Admin: 09/11/22 19:08 Dose: 5 mg Ondansetron HCl (Ondansetron 4 Mg/2 Ml Vial) 4 mg IV Q4HP PRN PRN Reason: Nausea And Vomiting Fluticasone- Umeclidinium- Vilanterol [Trelegy Ellipta] Inhaler 1 dose INH Q24H REPLACED BY [facility] Last Admin: 09/11/22 08:47 Dose: 1 dose Potassium Chloride (Potassium Chloride 20 Meq Tablet) 40 meq PO UD PRN PRN Reason: Potssium is 3-3.5 Potassium Chloride (Potassium Chloride 20 Meq Tablet) 40 meq PO UD PRN PRN Reason: Potassium < 3 Pramipexole Dihydrochloride (Pramipexole 0.25 Mg Tablet) 0.25 - 0.5 mg PO HS [facility]PL[facility] Last Admin: 09/11/22 20:27 Dose: 0.25 mg Quetiapine Fumarate (Quetiapine 25 Mg Tablet) 25 mg PO HSP PRN PRN Reason: Agitation Last Admin: 09/11/22 22:50 Dose: 25 mg Simvastatin (Simvastatin 10 Mg Tablet) 10 mg PO [facility] Last Admin: 09/11/22 20:27 Dose: 10 mg A/P Narrative A/P Narrative: A: *Gastroenteritis(Diarrhea and N/V):improved -cdiff neg, fecal wbc neg *UTI(Enterococcus/Aerococcus): treated *Sepsis: resolved *Volume depletion: improved *Dementia: *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
[2022-09-12] MEDS: INSULIN LISPRO 1 UNIT/0.01 ML UNIT SQ SCH ×4 (08:15→20:44)
[2022-09-12] MEDS: ASPIRIN 81 MG TAB.CHEW PO SCH (09:48)
[2022-09-12] MEDS: ENOXAPARIN 40 MG/0.4 ML SYRINGE SQ SCH (09:48)
[2022-09-12] MEDS: Fluticasone-Umeclidinium-Vilanterol [Trelegy Ellipta] Inhaler INH SCH (09:48)
[2022-09-12] MEDS: MELATONIN 3 MG TABLET PO SCH (20:14)
[2022-09-12] MEDS: PRAMIPEXOLE 0.25 MG TABLET PO SCH (20:14)
[2022-09-12] MEDS: GABAPENTIN 300 MG CAPSULE PO SCH (20:14)
[2022-09-12] MEDS: AMITRIPTYLINE 25 MG TABLET PO SCH (20:14)
[2022-09-12] MEDS: MONTELUKAST 10 MG TABLET PO SCH (20:14)
[2022-09-12] MEDS: SIMVASTATIN 10 MG TABLET PO SCH (20:14)
[2022-09-13] MEDS: INSULIN LISPRO 1 UNIT/0.01 ML UNIT SQ SCH ×4 (07:27→21:17)
--- NOTE | 2022-09-13 07:39 | Internal Med Progress Note ---
SUBJECTIVE Subjective Patient information: Note initiated : 09/13/22 at 7:38 am Service Date, if different from initiated Date: [] Patient: Sharon Pierce a 81 y/o F admitted on 09/01/22 for N/v/d. Chief Complaint: [] Interval history: History of present illness: Ms. Pierce is a 81 year old F Patient is a poor historian given her dementia and most of the history is obtained from the chart. Sounds like she has had 3 days of nausea vomiting diarrhea most notably the diarrhea. Her family members unable to care for her at home. In the ED she was seen and evaluated and had a CT abdomen pelvis which showed no acute pathology but did show some bilateral ovarian cyst considered abnormal for her age and pelvic ultrasound was recommended. She was tachycardic at 120 but blood pressure was stable. Other vital signs are stable. Mild leukocytosis of 13. No lactic acidosis. Renal function Near baseline. C. difficile negative in the ED. 2/ Still having liquid brown stools. Pending stool studies. Leukocytosis present. UTI noted on UA from yesterday. Pelvic ultrasound shows bilateral cysts no solid masses. Chronic kidney disease with elevated creatinine. Awaiting home medication reconciliation. 09/02 Patient appears to be in good spirits today. No diarrhea overnight. at bedside. Leukocytosis resolved. Pending urine and stool cultures. 09/03 Patient impulsive and agitated at times yesterday. Restless last night. Calm a nd resting this morning. Pleasant this morning. Diarrhea much improved. Bowel movements now soft. Urine culture with Enterococcus and Aerococcus. 09/04 Diarrhea essentially resolved. Awaiting placement. Pleasant this morning. Awaiting placement. 09/05 Patient was restless last afternoon and early evening. Sitting her chair this morning pleasant and cooperative. 09/06 No significant events overnight, awaiting placement. 09/07 Vital stable overnight, no significant events since yesterday. The patient is in good spirits today, awaiting placement. 09/08 No changes since yesterday. The patient is pleasant and cooperative with cares. Awaiting placement. 09/09 The patient is pleasant and cooperative with cares. Awaiting placement. 09/10 The patient has been pleasant and cooperative with cares for several days. Awaiting placement. 09/11 Again patient cooperative last night. No over night issues. 09/12 Doing well. Sitting up at bedside. No overnight events or new complaints. 09/13 Sleeping but awakens. No overnight event or new complaints. Review of Systems: denies headache/fever/chills/nausea/vomiting/chest or abdominal pain/cough/dyspnea. Otherwise see above. PHYSICAL EXAM: General: Alert, Awake, No acute Distress Eyes/N/T: EOMI, Head/Neck: neck supple, CV: RRR, 3/6SM, Pulm: Clear b/l, no wheezing/rhonchi/rales Abd: soft, nontender, +BS x4 Ext: no clubbing/cyanosis, trace b/l LE edema Neuro: Alert, no focal deficits, moves all extremities, Skin: warm/dry Constitutional Vitals: Vital Signs Temp Pulse Resp BP Pulse Ox O2 Del Method O2 Flow Rate 97.5 F 75 18 126/57 100 Room Air 0 09/13/22 07:26 09/13/22 07:26 09/13/22 07:26 09/13/22 07:26 09/13/22 07:26 09/13/22 07:26 09/09/22 20:00 Period Temp Pulse Resp BP Sys/Roberts Pulse Ox O2 Del Method O2 Flow Rate Last 24 Hr 96.9 F-97.8 F 67-75 16-20 115-161/56-72 95-100 Room Air-Room Air Intake and Output 09/12/22 09/13/22 09/13/22 19:59 03:59 11:59 Intake Total 240 240 Output Total 1 4 Balance 239 236 Weight 66.179 kg 65.862 kg Intake & Output: Intake & Output 09/12/22 09/13/22 09/13/22 19:59 03:59 11:59 Intake Total 240 240 Output Total 1 4 Balance 239 236 Weight 66.179 kg 65.862 kg Intake: Oral 240 240 Output: # of times incontinent of urine 1 4 Other: Meal Lunch Percent of Meal Consumed 100% Urine Color Yellow Urine Odor Normal # Voids 2 OBJ DATA Labs 09/02/22 05:50 09/02/22 05:50 Meds: Medications Acetaminophen (Acetaminophen 325 Mg Tablet) 650 mg PO Q6HP PRN; Protocol PRN Reason: Per Pain Protocol/Fever > 101 Last Admin: 09/05/22 20:17 Dose: 650 mg Albuterol/Ipratropium (Ipratropium/Albuterol 3 Ml Ampul.Neb) 3 ml NEB Q4HP PRN PRN Reason: Shortness Of Breath Amitriptyline HCl (Amitriptyline 25 Mg Tablet) 50 mg PO HS [facility] Last Admin: 09/12/22 20:14 Dose: 50 mg Aspirin (Aspirin 81 Mg Tab.Chew) 81 mg PO DAILY [facility] Last Admin: 09/12/22 09:48 Dose: 81 mg Dextrose (Dextrose 50% 50 Ml Vial) 0 ml IV UD PRN PRN Reason: Per Sliding Scale Diagnostic Test (Pha) (Accu-Chek 1 Each Strip) 1 each FS ACHS [facility] Last Admin: 09/13/22 07:27 Dose: 1 each Diphenhydramine HCl (Diphenhydramine 25 Mg Capsule) 25 mg PO HSP PRN PRN Reason: Insomnia Last Admin: 09/06/22 21:21 Dose: 25 mg Enoxaparin Sodium (Enoxaparin 40 Mg/0.4 Ml Syringe) 40 mg SQ DAILY [facility] Last Admin: 09/12/22 09:48 Dose: 40 mg Gabapentin (Gabapentin 300 Mg Capsule) 300 mg PO HS [facility] Last Admin: 09/12/22 20:14 Dose: 300 mg Glucose (Dextrose 31 Gm Oral.Susp) 15 gm PO PRN PRN PRN Reason: Hypoglycemia Potassium Chloride 40 meq/ (Dextrose) 520 mls @ 130 mls/hr IV UD PRN PRN Reason: Potassium < 3 Magnesium Sulfate (Magnesium Sulfate) 2 gm in 50 mls @ 50 mls/hr IV UD PRN PRN Reason: Magnesium </= 1.6 Insulin Human Lispro (Insulin Lispro 1 Unit/0.01 Ml Unit) 0 unit SQ [facility]; Protocol Last Admin: 09/13/22 07:27 Dose: Not Given Melatonin (Melatonin 3 Mg Tablet) 3 mg PO QHS [facility] Last Admin: 09/12/22 20:14 Dose: 3 mg Montelukast Sodium (Montelukast 10 Mg Tablet) 10 mg PO QPM [facility] Last Admin: 09/12/22 20:14 Dose: 10 mg Olanzapine (Olanzapine 5 Mg Tablet) 5 mg PO HSP PRN PRN Reason: Agitation Last Admin: 09/11/22 19:08 Dose: 5 mg Ondansetron HCl (Ondansetron 4 Mg/2 Ml Vial) 4 mg IV Q4HP PRN PRN Reason: Nausea And Vomiting Fluticasone- Umeclidinium- Vilanterol [Trelegy Ellipta] Inhaler 1 dose INH Q24H [facility] Last Admin: 09/12/22 09:48 Dose: 1 dose Potassium Chloride (Potassium Chloride 20 Meq Tablet) 40 meq PO UD PRN PRN Reason: Potssium is 3-3.5 Potassium Chloride (Potassium Chloride 20 Meq Tablet) 40 meq PO UD PRN PRN Reason: Potassium < 3 Pramipexole Dihydrochloride (Pramipexole 0.25 Mg Tablet) 0.25 - 0.5 mg PO HS [facility] Last Admin: 09/12/22 20:14 Dose: 0.5 mg Quetiapine Fumarate (Quetiapine 25 Mg Tablet) 25 mg PO HSP PRN PRN Reason: Agitation Last Admin: 09/11/22 22:50 Dose: 25 mg Simvastatin (Simvastatin 10 Mg Tablet) 10 mg PO [facility] Last Admin: 09/12/22 20:14 Dose: 10 mg A/P Narrative A/P Narrative: A: *Gastroenteritis(Diarrhea and N/V):resolved -cdiff neg, fecal wbc neg *UTI(Enterococcus/Aerococcus): treated *Sepsis: resolved *Volume depletion: improved *Dementia: *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
[2022-09-13] MEDS: ASPIRIN 81 MG TAB.CHEW PO SCH (08:22)
[2022-09-13] MEDS: Fluticasone-Umeclidinium-Vilanterol [Trelegy Ellipta] Inhaler INH SCH (08:23)
[2022-09-13] MEDS: ENOXAPARIN 40 MG/0.4 ML SYRINGE SQ SCH (08:23)
[2022-09-13] MEDS: PRAMIPEXOLE 0.25 MG TABLET PO SCH (21:21)
[2022-09-13] MEDS: AMITRIPTYLINE 25 MG TABLET PO SCH (21:21)
[2022-09-13] MEDS: MELATONIN 3 MG TABLET PO SCH (21:21)
[2022-09-13] MEDS: diphenhydrAMINE 25 MG CAPSULE PO PRN (21:22)
[2022-09-13] MEDS: SIMVASTATIN 10 MG TABLET PO SCH (21:22)
[2022-09-13] MEDS: OLANZapine 5 MG TABLET PO PRN (21:22)
[2022-09-13] MEDS: MONTELUKAST 10 MG TABLET PO SCH (21:22)
[2022-09-13] MEDS: GABAPENTIN 300 MG CAPSULE PO SCH (21:22)
--- NOTE | 2022-09-14 07:16 | Internal Med Progress Note ---
SUBJECTIVE Subjective Patient information: Note initiated : 09/14/22 at 7:16 am Service Date, if different from initiated Date: [] Patient: Sharon Pierce a 81 y/o F admitted on 09/01/22 for N/v/d. Chief Complaint: [] Interval history: History of present illness: Ms. Pierce is a 81 year old F Patient is a poor historian given her dementia and most of the history is obtained from the chart. Sounds like she has had 3 days of nausea vomiting diarrhea most notably the diarrhea. Her family members unable to care for her at home. In the ED she was seen and evaluated and had a CT abdomen pelvis which showed no acute pathology but did show some bilateral ovarian cyst considered abnormal for her age and pelvic ultrasound was recommended. She was tachycardic at 120 but blood pressure was stable. Other vital signs are stable. Mild leukocytosis of 13. No lactic acidosis. Renal function Near baseline. C. difficile negative in the ED. 2/ Still having liquid brown stools. Pending stool studies. Leukocytosis present. UTI noted on UA from yesterday. Pelvic ultrasound shows bilateral cysts no solid masses. Chronic kidney disease with elevated creatinine. Awaiting home medication reconciliation. 09/02 Patient appears to be in good spirits today. No diarrhea overnight. at bedside. Leukocytosis resolved. Pending urine and stool cultures. 09/03 Patient impulsive and agitated at times yesterday. Restless last night. Calm a nd resting this morning. Pleasant this morning. Diarrhea much improved. Bowel movements now soft. Urine culture with Enterococcus and Aerococcus. 09/04 Diarrhea essentially resolved. Awaiting placement. Pleasant this morning. Awaiting placement. 09/05 Patient was restless last afternoon and early evening. Sitting her chair this morning pleasant and cooperative. 09/06 No significant events overnight, awaiting placement. 09/07 Vital stable overnight, no significant events since yesterday. The patient is in good spirits today, awaiting placement. 09/08 No changes since yesterday. The patient is pleasant and cooperative with cares. Awaiting placement. 09/09 The patient is pleasant and cooperative with cares. Awaiting placement. 09/10 The patient has been pleasant and cooperative with cares for several days. Awaiting placement. 09/11 Again patient cooperative last night. No over night issues. 09/12 Doing well. Sitting up at bedside. No overnight events or new complaints. 09/13 Sleeping but awakens. No overnight event or new complaints. 09/14 No changes overnight. Patient pleasant. Awaiting placement. Review of Systems: denies headache/fever/chills/nausea/vomiting/chest or abdominal pain/cough/dyspnea. Otherwise see above. PHYSICAL EXAM: General: Alert, Awake, No acute Distress Eyes/N/T: EOMI, Head/Neck: neck supple, CV: RRR, 3/6SM, Pulm: Clear b/l, no wheezing/rhonchi/rales Abd: soft, nontender, +BS x4 Ext: no clubbing/cyanosis, trace b/l LE edema Neuro: Alert, no focal deficits, moves all extremities, Skin: warm/dry Constitutional Vitals: Vital Signs Temp Pulse Resp BP Pulse Ox O2 Del Method O2 Flow Rate 98.3 F 76 15 129/56 93 Room Air 0 09/14/22 04:35 09/14/22 04:35 09/14/22 04:35 09/14/22 04:35 09/14/22 04:35 09/14/22 04:35 09/13/22 20:00 Period Temp Pulse Resp BP Sys/Robetrs Pulse Ox O2 Del Method O2 Flow Rate Last 24 Hr 97.1 F-98.3 F 73-86 14-20 120-150/56-71 93-100 Room Air-Room Air 0 Intake and Output 09/13/22 09/14/22 09/14/22 19:59 03:59 11:59 Intake Total 480 200 Output Total 3 21 1 Balance 477 -21 199 Weight 65.589 kg Intake & Output: Intake & Output 09/13/22 09/14/22 09/14/22 19:59 03:59 11:59 Intake Total 480 200 Output Total 3 21 1 Balance 477 -21 199 Weight 65.589 kg Intake: Oral 480 200 Output: Void Amount 20 # of times incontinent of urine 3 1 1 Other: Meal Lunch Percent of Meal Consumed 100% Stool Size Small Stool Color Brown Green Stool Consistency Dry and Hard Formed # Voids 1 OBJ DATA Labs 09/02/22 05:50 09/02/22 05:50 Meds: Medications Acetaminophen (Acetaminophen 325 Mg Tablet) 650 mg PO Q6HP PRN; Protocol PRN Reason: Per Pain Protocol/Fever > 101 Last Admin: 09/05/22 20:17 Dose: 650 mg Albuterol/Ipratropium (Ipratropium/Albuterol 3 Ml Ampul.Neb) 3 ml NEB Q4HP PRN PRN Reason: Shortness Of Breath Amitriptyline HCl (Amitriptyline 25 Mg Tablet) 50 mg PO HS [facility] Last Admin: 09/13/22 21:21 Dose: 50 mg Aspirin (Aspirin 81 Mg Tab.Chew) 81 mg PO DAILY [facility] Last Admin: 09/13/22 08:22 Dose: 81 mg Dextrose (Dextrose 50% 50 Ml Vial) 0 ml IV UD PRN PRN Reason: Per Sliding Scale Diagnostic Test (Pha) (Accu-Chek 1 Each Strip) 1 each FS [facility] Last Admin: 09/13/22 21:16 Dose: 1 each Diphenhydramine HCl (Diphenhydramine 25 Mg Capsule) 25 mg PO HSP PRN PRN Reason: Insomnia Last Admin: 09/13/22 21:22 Dose: 25 mg Enoxaparin Sodium (Enoxaparin 40 Mg/0.4 Ml Syringe) 40 mg SQ DAILY [facility] Last Admin: 09/13/22 08:23 Dose: 40 mg Gabapentin (Gabapentin 300 Mg Capsule) 300 mg PO HS [facility] Last Admin: 09/13/22 21:22 Dose: 300 mg Glucose (Dextrose 31 Gm Oral.Susp) 15 gm PO PRN PRN PRN Reason: Hypoglycemia Potassium Chloride 40 meq/ (Dextrose) 520 mls @ 130 mls/hr IV UD PRN PRN Reason: Potassium < 3 Magnesium Sulfate (Magnesium Sulfate) 2 gm in 50 mls @ 50 mls/hr IV UD PRN PRN Reason: Magnesium </= 1.6 Insulin Human Lispro (Insulin Lispro 1 Unit/0.01 Ml Unit) 0 unit SQ ACHS [facility]; Protocol Last Admin: 09/13/22 21:17 Dose: Not Given Melatonin (Melatonin 3 Mg Tablet) 3 mg PO QHS [facility] Last Admin: 09/13/22 21:21 Dose: 3 mg Montelukast Sodium (Montelukast 10 Mg Tablet) 10 mg PO QPM [facility] Last Admin: 09/13/22 21:22 Dose: 10 mg Olanzapine (Olanzapine 5 Mg Tablet) 5 mg PO HSP PRN PRN Reason: Agitation Last Admin: 09/13/22 21:22 Dose: 5 mg Ondansetron HCl (Ondansetron 4 Mg/2 Ml Vial) 4 mg IV Q4HP PRN PRN Reason: Nausea And Vomiting Fluticasone- Umeclidinium- Vilanterol [Trelegy Ellipta] Inhaler 1 dose INH Q24H [facility] Last Admin: 09/13/22 08:23 Dose: 1 dose Potassium Chloride (Potassium Chloride 20 Meq Tablet) 40 meq PO UD PRN PRN Reason: Potssium is 3-3.5 Potassium Chloride (Potassium Chloride 20 Meq Tablet) 40 meq PO UD PRN PRN Reason: Potassium < 3 Pramipexole Dihydrochloride (Pramipexole 0.25 Mg Tablet) 0.25 - 0.5 mg PO [facility] Last Admin: 09/13/22 21:21 Dose: 0.5 mg Quetiapine Fumarate (Quetiapine 25 Mg Tablet) 25 mg PO HSP PRN PRN Reason: Agitation Last Admin: 09/11/22 22:50 Dose: 25 mg Simvastatin (Simvastatin 10 Mg Tablet) 10 mg PO [facility] Last Admin: 09/13/22 21:22 Dose: 10 mg A/P Narrative A/P Narrative: A: *Gastroenteritis(Diarrhea and N/V):resolved -cdiff neg, fecal wbc neg *UTI(Enterococcus/Aerococcus): treated *Sepsis: resolved *Volume depletion: improved *Dementia: *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
[2022-09-14] MEDS: ASPIRIN 81 MG TAB.CHEW PO SCH (08:02)
[2022-09-14] MEDS: INSULIN LISPRO 1 UNIT/0.01 ML UNIT SQ SCH ×4 (08:02→20:09)
[2022-09-14] MEDS: Fluticasone-Umeclidinium-Vilanterol [Trelegy Ellipta] Inhaler INH SCH (08:03)
[2022-09-14] MEDS: ENOXAPARIN 40 MG/0.4 ML SYRINGE SQ SCH (08:03)
[2022-09-14] MEDS: AMITRIPTYLINE 25 MG TABLET PO SCH (20:13)
[2022-09-14] MEDS: GABAPENTIN 300 MG CAPSULE PO SCH (20:13)
[2022-09-14] MEDS: MELATONIN 3 MG TABLET PO SCH (20:14)
[2022-09-14] MEDS: SIMVASTATIN 10 MG TABLET PO SCH (20:14)
[2022-09-14] MEDS: PRAMIPEXOLE 0.25 MG TABLET PO SCH (20:14)
[2022-09-14] MEDS: MONTELUKAST 10 MG TABLET PO SCH (20:14)
--- NOTE | 2022-09-15 07:25 | Internal Med Progress Note ---
SUBJECTIVE Subjective Patient information: Note initiated : 09/15/22 at 7:24 am Service Date, if different from initiated Date: [] Patient: Sharon Pierce a 81 y/o F admitted on 09/01/22 for N/v/d. Chief Complaint: [] Interval history: History of present illness: Ms. Pierce is a 81 year old F Patient is a poor historian given her dementia and most of the history is obtained from the chart. Sounds like she has had 3 days of nausea vomiting diarrhea most notably the diarrhea. Her family members unable to care for her at home. In the ED she was seen and evaluated and had a CT abdomen pelvis which showed no acute pathology but did show some bilateral ovarian cyst considered abnormal for her age and pelvic ultrasound was recommended. She was tachycardic at 120 but blood pressure was stable. Other vital signs are stable. Mild leukocytosis of 13. No lactic acidosis. Renal function Near baseline. C. difficile negative in the ED. 2/ Still having liquid brown stools. Pending stool studies. Leukocytosis present. UTI noted on UA from yesterday. Pelvic ultrasound shows bilateral cysts no solid masses. Chronic kidney disease with elevated creatinine. Awaiting home medication reconciliation. 09/02 Patient appears to be in good spirits today. No diarrhea overnight. at bedside. Leukocytosis resolved. Pending urine and stool cultures. 09/03 Patient impulsive and agitated at times yesterday. Restless last night. Calm a nd resting this morning. Pleasant this morning. Diarrhea much improved. Bowel movements now soft. Urine culture with Enterococcus and Aerococcus. 09/04 Diarrhea essentially resolved. Awaiting placement. Pleasant this morning. Awaiting placement. 09/05 Patient was restless last afternoon and early evening. Sitting her chair this morning pleasant and cooperative. 09/06 No significant events overnight, awaiting placement. 09/07 Vital stable overnight, no significant events since yesterday. The patient is in good spirits today, awaiting placement. 09/08 No changes since yesterday. The patient is pleasant and cooperative with cares. Awaiting placement. 09/09 The patient is pleasant and cooperative with cares. Awaiting placement. 09/10 The patient has been pleasant and cooperative with cares for several days. Awaiting placement. 09/11 Again patient cooperative last night. No over night issues. 09/12 Doing well. Sitting up at bedside. No overnight events or new complaints. 09/13 Sleeping but awakens. No overnight event or new complaints. 09/14 No changes overnight. Patient pleasant. Awaiting placement. 09/15 Patient happy and pleasant this morning. Sitting up in chair. Awaiting placement. Review of Systems: denies headache/fever/chills/nausea/vomiting/chest or abdominal pain/cough/dyspnea. Otherwise see above. PHYSICAL EXAM: General: Alert, Awake, No acute Distress Eyes/N/T: EOMI, Head/Neck: neck supple, CV: RRR, 3/6SM, Pulm: Clear b/l, no wheezing/rhonchi/rales Abd: soft, nontender, +BS x4 Ext: no clubbing/cyanosis, trace b/l LE edema Neuro: Alert, no focal deficits, moves all extremities, Skin: warm/dry Constitutional Vitals: Vital Signs Temp Pulse Resp BP Pulse Ox O2 Del Method O2 Flow Rate 97.6 F 81 20 134/55 94 Room Air 0 09/15/22 06:57 09/15/22 06:57 09/15/22 06:57 09/15/22 06:57 09/15/22 06:57 09/15/22 06:57 09/13/22 20:00 Period Temp Pulse Resp BP Sys/Roberts Pulse Ox O2 Del Method O2 Flow Rate Last 24 Hr 97.6 F-97.9 F 72-83 16-20 122-166/52-99 94-99 Room Air-Room Air Intake and Output 09/14/22 09/15/22 09/15/22 19:59 03:59 11:59 Intake Total 480 500 Output Total 3 3 1 Balance 477 497 -1 Weight 65.453 kg Intake & Output: Intake & Output 09/14/22 09/15/22 09/15/22 19:59 03:59 11:59 Intake Total 480 500 Output Total 3 3 1 Balance 477 497 -1 Weight 65.453 kg Intake: Oral 480 500 Output: # of times incontinent of urine 3 3 1 Other: Meal Lunch Percent of Meal Consumed 75% Stool Size Moderate # Voids 1 # Bowel Movements 1 OBJ DATA Labs 09/02/22 05:50 09/02/22 05:50 Meds: Medications Acetaminophen (Acetaminophen 325 Mg Tablet) 650 mg PO Q6HP PRN; Protocol PRN Reason: Per Pain Protocol/Fever > 101 Last Admin: 09/05/22 20:17 Dose: 650 mg Albuterol/Ipratropium (Ipratropium/Albuterol 3 Ml Ampul.Neb) 3 ml NEB Q4HP PRN PRN Reason: Shortness Of Breath Amitriptyline HCl (Amitriptyline 25 Mg Tablet) 50 mg PO HS [facility] Last Admin: 09/14/22 20:13 Dose: 50 mg Aspirin (Aspirin 81 Mg Tab.Chew) 81 mg PO DAILY [facility] Last Admin: 09/14/22 08:02 Dose: 81 mg Dextrose (Dextrose 50% 50 Ml Vial) 0 ml IV UD PRN PRN Reason: Per Sliding Scale Diagnostic Test (Pha) (Accu-Chek 1 Each Strip) 1 each FS [facility] Last Admin: 09/14/22 20:09 Dose: 1 each Diphenhydramine HCl (Diphenhydramine 25 Mg Capsule) 25 mg PO HSP PRN PRN Reason: Insomnia Last Admin: 09/13/22 21:22 Dose: 25 mg Enoxaparin Sodium (Enoxaparin 40 Mg/0.4 Ml Syringe) 40 mg SQ DAILY [facility] Last Admin: 09/14/22 08:03 Dose: 40 mg Gabapentin (Gabapentin 300 Mg Capsule) 300 mg PO HS [facility] Last Admin: 09/14/22 20:13 Dose: 300 mg Glucose (Dextrose 31 Gm Oral.Susp) 15 gm PO PRN PRN PRN Reason: Hypoglycemia Potassium Chloride 40 meq/ (Dextrose) 520 mls @ 130 mls/hr IV UD PRN PRN Reason: Potassium < 3 Magnesium Sulfate (Magnesium Sulfate) 2 gm in 50 mls @ 50 mls/hr IV UD PRN PRN Reason: Magnesium </= 1.6 Insulin Human Lispro (Insulin Lispro 1 Unit/0.01 Ml Unit) 0 unit SQ ACHS [facility]; Protocol Last Admin: 09/14/22 20:09 Dose: Not Given Melatonin (Melatonin 3 Mg Tablet) 3 mg PO QHS [facility] Last Admin: 09/14/22 20:14 Dose: 3 mg Montelukast Sodium (Montelukast 10 Mg Tablet) 10 mg PO QPM [facility] Last Admin: 09/14/22 20:14 Dose: 10 mg Olanzapine (Olanzapine 5 Mg Tablet) 5 mg PO HSP PRN PRN Reason: Agitation Last Admin: 09/13/22 21:22 Dose: 5 mg Ondansetron HCl (Ondansetron 4 Mg/2 Ml Vial) 4 mg IV Q4HP PRN PRN Reason: Nausea And Vomiting Fluticasone- Umeclidinium- Vilanterol [Trelegy Ellipta] Inhaler 1 dose INH Q24H [facility] Last Admin: 09/14/22 08:03 Dose: 1 dose Potassium Chloride (Potassium Chloride 20 Meq Tablet) 40 meq PO UD PRN PRN Reason: Potssium is 3-3.5 Potassium Chloride (Potassium Chloride 20 Meq Tablet) 40 meq PO UD PRN PRN Reason: Potassium < 3 Pramipexole Dihydrochloride (Pramipexole 0.25 Mg Tablet) 0.25 - 0.5 mg PO HS [facility] Last Admin: 09/14/22 20:14 Dose: 0.5 mg Quetiapine Fumarate (Quetiapine 25 Mg Tablet) 25 mg PO HSP PRN PRN Reason: Agitation Last Admin: 09/11/22 22:50 Dose: 25 mg Simvastatin (Simvastatin 10 Mg Tablet) 10 mg PO [facility] Last Admin: 09/14/22 20:14 Dose: 10 mg A/P Narrative A/P Narrative: A: *Gastroenteritis(Diarrhea and N/V):resolved -cdiff neg, fecal wbc neg *UTI(Enterococcus/Aerococcus): treated *Sepsis: resolved *Volume depletion: improved *Dementia: *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
[2022-09-15] MEDS: INSULIN LISPRO 1 UNIT/0.01 ML UNIT SQ SCH ×4 (07:33→21:37)
[2022-09-15] MEDS: ENOXAPARIN 40 MG/0.4 ML SYRINGE SQ SCH (10:15)
[2022-09-15] MEDS: ASPIRIN 81 MG TAB.CHEW PO SCH (10:15)
[2022-09-15] MEDS: Fluticasone-Umeclidinium-Vilanterol [Trelegy Ellipta] Inhaler INH SCH (10:16)
[2022-09-15] MEDS: PRAMIPEXOLE 0.25 MG TABLET PO SCH (21:35)
[2022-09-15] MEDS: MONTELUKAST 10 MG TABLET PO SCH (21:35)
[2022-09-15] MEDS: MELATONIN 3 MG TABLET PO SCH (21:35)
[2022-09-15] MEDS: GABAPENTIN 300 MG CAPSULE PO SCH (21:35)
[2022-09-15] MEDS: AMITRIPTYLINE 25 MG TABLET PO SCH (21:35)
[2022-09-15] MEDS: SIMVASTATIN 10 MG TABLET PO SCH (21:36)
[2022-09-16] MEDS: INSULIN LISPRO 1 UNIT/0.01 ML UNIT SQ SCH ×4 (07:16→21:01)
--- NOTE | 2022-09-16 07:23 | Internal Med Progress Note ---
SUBJECTIVE Subjective Patient information: Note initiated : 09/16/22 at 7:23 am Service Date, if different from initiated Date: [] Patient: Sharon Pierce a 81 y/o F admitted on 09/01/22 for N/v/d. Chief Complaint: [] Interval history: History of present illness: Ms. Pierce is a 81 year old F Patient is a poor historian given her dementia and most of the history is obtained from the chart. Sounds like she has had 3 days of nausea vomiting diarrhea most notably the diarrhea. Her family members unable to care for her at home. In the ED she was seen and evaluated and had a CT abdomen pelvis which showed no acute pathology but did show some bilateral ovarian cyst considered abnormal for her age and pelvic ultrasound was recommended. She was tachycardic at 120 but blood pressure was stable. Other vital signs are stable. Mild leukocytosis of 13. No lactic acidosis. Renal function Near baseline. C. difficile negative in the ED. 2/ Still having liquid brown stools. Pending stool studies. Leukocytosis present. UTI noted on UA from yesterday. Pelvic ultrasound shows bilateral cysts no solid masses. Chronic kidney disease with elevated creatinine. Awaiting home medication reconciliation. 09/02 Patient appears to be in good spirits today. No diarrhea overnight. at bedside. Leukocytosis resolved. Pending urine and stool cultures. 09/03 Patient impulsive and agitated at times yesterday. Restless last night. Calm a nd resting this morning. Pleasant this morning. Diarrhea much improved. Bowel movements now soft. Urine culture with Enterococcus and Aerococcus. 09/04 Diarrhea essentially resolved. Awaiting placement. Pleasant this morning. Awaiting placement. 09/05 Patient was restless last afternoon and early evening. Sitting her chair this morning pleasant and cooperative. 09/06 No significant events overnight, awaiting placement. 09/07 Vital stable overnight, no significant events since yesterday. The patient is in good spirits today, awaiting placement. 09/08 No changes since yesterday. The patient is pleasant and cooperative with cares. Awaiting placement. 09/09 The patient is pleasant and cooperative with cares. Awaiting placement. 09/10 The patient has been pleasant and cooperative with cares for several days. Awaiting placement. 09/11 Again patient cooperative last night. No over night issues. 09/12 Doing well. Sitting up at bedside. No overnight events or new complaints. 09/13 Sleeping but awakens. No overnight event or new complaints. 09/14 No changes overnight. Patient pleasant. Awaiting placement. 09/15 Patient happy and pleasant this morning. Sitting up in chair. Awaiting placement. 09/16 Doing well. No change. Awaiting placement. Review of Systems: denies headache/fever/chills/nausea/vomiting/chest or abdominal pain/cough/dyspnea. Otherwise see above. PHYSICAL EXAM: General: Alert, Awake, No acute Distress Eyes/N/T: EOMI, Head/Neck: neck supple, CV: RRR, 3/6SM, Pulm: Clear b/l, no wheezing/rhonchi/rales Abd: soft, nontender, +BS x4 Ext: no clubbing/cyanosis, trace b/l LE edema Neuro: Alert, no focal deficits, moves all extremities, Skin: warm/dry Constitutional Vitals: Vital Signs Temp Pulse Resp BP Pulse Ox O2 Del Method O2 Flow Rate 97.0 F 71 18 122/66 96 Room Air 0 09/16/22 07:11 09/16/22 07:11 09/16/22 07:11 09/16/22 07:11 09/16/22 07:11 09/16/22 07:11 09/13/22 20:00 Period Temp Pulse Resp BP Sys/Roberts Pulse Ox O2 Del Method O2 Flow Rate Last 24 Hr 97.0 F-99.2 F 71-82 15-18 122-141/58-66 94-100 Room Air-Room Air Intake and Output 09/15/22 09/16/22 09/16/22 19:59 03:59 11:59 Intake Total 1010 200 Output Total 2 2 Balance 1008 198 Weight 65.408 kg Intake & Output: Intake & Output 09/15/22 09/16/22 09/16/22 19:59 03:59 11:59 Intake Total 1010 200 Output Total 2 2 Balance 1008 198 Weight 65.408 kg Intake: Oral 1010 200 Output: # of times incontinent of urine 2 2 Other: Meal Dinner Percent of Meal Consumed 25% Feeding Ability Assist with Tray Set Up Urine Odor Normal OBJ DATA Labs 09/02/22 05:50 09/02/22 05:50 Meds: Medications Acetaminophen (Acetaminophen 325 Mg Tablet) 650 mg PO Q6HP PRN; Protocol PRN Reason: Per Pain Protocol/Fever > 101 Last Admin: 09/05/22 20:17 Dose: 650 mg Albuterol/Ipratropium (Ipratropium/Albuterol 3 Ml Ampul.Neb) 3 ml NEB Q4HP PRN PRN Reason: Shortness Of Breath Amitriptyline HCl (Amitriptyline 25 Mg Tablet) 50 mg PO HS [facility] Last Admin: 09/15/22 21:35 Dose: 50 mg Aspirin (Aspirin 81 Mg Tab.Chew) 81 mg PO DAILY [facility] Last Admin: 09/15/22 10:15 Dose: 81 mg Dextrose (Dextrose 50% 50 Ml Vial) 0 ml IV UD PRN PRN Reason: Per Sliding Scale Diagnostic Test (Pha) (Accu-Chek 1 Each Strip) 1 each FS ACHS [facility] Last Admin: 09/16/22 07:14 Dose: 1 each Diphenhydramine HCl (Diphenhydramine 25 Mg Capsule) 25 mg PO HSP PRN PRN Reason: Insomnia Last Admin: 09/13/22 21:22 Dose: 25 mg Enoxaparin Sodium (Enoxaparin 40 Mg/0.4 Ml Syringe) 40 mg SQ DAILY [facility] Last Admin: 09/15/22 10:15 Dose: 40 mg Gabapentin (Gabapentin 300 Mg Capsule) 300 mg PO HS [facility] Last Admin: 09/15/22 21:35 Dose: 300 mg Glucose (Dextrose 31 Gm Oral.Susp) 15 gm PO PRN PRN PRN Reason: Hypoglycemia Potassium Chloride 40 meq/ (Dextrose) 520 mls @ 130 mls/hr IV UD PRN PRN Reason: Potassium < 3 Magnesium Sulfate (Magnesium Sulfate) 2 gm in 50 mls @ 50 mls/hr IV UD PRN PRN Reason: Magnesium </= 1.6 Insulin Human Lispro (Insulin Lispro 1 Unit/0.01 Ml Unit) 0 unit SQ ACHS [facility]; Protocol Last Admin: 09/16/22 07:16 Dose: Not Given Melatonin (Melatonin 3 Mg Tablet) 3 mg PO QHS [facility] Last Admin: 09/15/22 21:35 Dose: 3 mg Montelukast Sodium (Montelukast 10 Mg Tablet) 10 mg PO QPM [facility] Last Admin: 09/15/22 21:35 Dose: 10 mg Olanzapine (Olanzapine 5 Mg Tablet) 5 mg PO HSP PRN PRN Reason: Agitation Last Admin: 09/13/22 21:22 Dose: 5 mg Ondansetron HCl (Ondansetron 4 Mg/2 Ml Vial) 4 mg IV Q4HP PRN PRN Reason: Nausea And Vomiting Fluticasone- Umeclidinium- Vilanterol [Trelegy Ellipta] Inhaler 1 dose INH Q24H [facility] Last Admin: 09/15/22 10:16 Dose: 1 dose Potassium Chloride (Potassium Chloride 20 Meq Tablet) 40 meq PO UD PRN PRN Reason: Potssium is 3-3.5 Potassium Chloride (Potassium Chloride 20 Meq Tablet) 40 meq PO UD PRN PRN Reason: Potassium < 3 Pramipexole Dihydrochloride (Pramipexole 0.25 Mg Tablet) 0.25 - 0.5 mg PO [facility] Last Admin: 09/15/22 21:35 Dose: 0.25 mg Quetiapine Fumarate (Quetiapine 25 Mg Tablet) 25 mg PO HSP PRN PRN Reason: Agitation Last Admin: 09/11/22 22:50 Dose: 25 mg Simvastatin (Simvastatin 10 Mg Tablet) 10 mg PO [facility] Last Admin: 09/15/22 21:36 Dose: 10 mg A/P Narrative A/P Narrative: A: *Gastroenteritis(Diarrhea and N/V):resolved -cdiff neg, fecal wbc neg *UTI(Enterococcus/Aerococcus): treated *Sepsis: resolved *Volume depletion: improved *Dementia: *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
[2022-09-16] MEDS: ENOXAPARIN 40 MG/0.4 ML SYRINGE SQ SCH (08:09)
[2022-09-16] MEDS: ASPIRIN 81 MG TAB.CHEW PO SCH (08:09)
[2022-09-16] MEDS: Fluticasone-Umeclidinium-Vilanterol [Trelegy Ellipta] Inhaler INH SCH (08:09)
[2022-09-16] MEDS: SIMVASTATIN 10 MG TABLET PO SCH (21:02)
[2022-09-16] MEDS: MELATONIN 3 MG TABLET PO SCH (21:02)
[2022-09-16] MEDS: MONTELUKAST 10 MG TABLET PO SCH (21:02)
[2022-09-16] MEDS: AMITRIPTYLINE 25 MG TABLET PO SCH (21:02)
[2022-09-16] MEDS: GABAPENTIN 300 MG CAPSULE PO SCH (21:02)
[2022-09-16] MEDS: PRAMIPEXOLE 0.25 MG TABLET PO SCH (21:03)
[2022-09-17] MEDS: INSULIN LISPRO 1 UNIT/0.01 ML UNIT SQ SCH ×4 (06:52→21:29)
--- NOTE | 2022-09-17 07:42 | Internal Med Progress Note ---
SUBJECTIVE Subjective Patient information: Note initiated : 09/17/22 at 7:42 am Service Date, if different from initiated Date: [] Patient: Sharon Pierce a 81 y/o F admitted on 09/01/22 for N/v/d. Chief Complaint: [] Interval history: History of present illness: Ms. Pierce is a 81 year old F Patient is a poor historian given her dementia and most of the history is obtained from the chart. Sounds like she has had 3 days of nausea vomiting diarrhea most notably the diarrhea. Her family members unable to care for her at home. In the ED she was seen and evaluated and had a CT abdomen pelvis which showed no acute pathology but did show some bilateral ovarian cyst considered abnormal for her age and pelvic ultrasound was recommended. She was tachycardic at 120 but blood pressure was stable. Other vital signs are stable. Mild leukocytosis of 13. No lactic acidosis. Renal function Near baseline. C. difficile negative in the ED. 2/ Still having liquid brown stools. Pending stool studies. Leukocytosis present. UTI noted on UA from yesterday. Pelvic ultrasound shows bilateral cysts no solid masses. Chronic kidney disease with elevated creatinine. Awaiting home medication reconciliation. 09/02 Patient appears to be in good spirits today. No diarrhea overnight. at bedside. Leukocytosis resolved. Pending urine and stool cultures. 09/03 Patient impulsive and agitated at times yesterday. Restless last night. Calm a nd resting this morning. Pleasant this morning. Diarrhea much improved. Bowel movements now soft. Urine culture with Enterococcus and Aerococcus. 09/04 Diarrhea essentially resolved. Awaiting placement. Pleasant this morning. Awaiting placement. 09/05 Patient was restless last afternoon and early evening. Sitting her chair this morning pleasant and cooperative. 09/06 No significant events overnight, awaiting placement. 09/07 Vital stable overnight, no significant events since yesterday. The patient is in good spirits today, awaiting placement. 09/08 No changes since yesterday. The patient is pleasant and cooperative with cares. Awaiting placement. 09/09 The patient is pleasant and cooperative with cares. Awaiting placement. 09/10 The patient has been pleasant and cooperative with cares for several days. Awaiting placement. 09/11 Again patient cooperative last night. No over night issues. 09/12 Doing well. Sitting up at bedside. No overnight events or new complaints. 09/13 Sleeping but awakens. No overnight event or new complaints. 09/14 No changes overnight. Patient pleasant. Awaiting placement. 09/15 Patient happy and pleasant this morning. Sitting up in chair. Awaiting placement. 09/16 Doing well. No change. Awaiting placement. 09/17 No overnight event or new complaints. Patient feeling well. Pleasant. Sitting up in chair. Review of Systems: denies headache/fever/chills/nausea/vomiting/chest or abdominal pain/cough/dyspnea. Otherwise see above. PHYSICAL EXAM: General: Alert, Awake, No acute Distress Eyes/N/T: EOMI, Head/Neck: neck supple, CV: RRR, 3/6SM, Pulm: Clear b/l, no wheezing/rhonchi/rales Abd: soft, nontender, +BS x4 Ext: no clubbing/cyanosis, trace b/l LE edema Neuro: Alert, no focal deficits, moves all extremities, Skin: warm/dry Constitutional Vitals: Vital Signs Temp Pulse Resp BP Pulse Ox O2 Del Method O2 Flow Rate 98.5 F 72 20 126/54 94 Room Air 0 09/17/22 07:30 09/17/22 03:50 09/17/22 07:30 09/17/22 07:30 09/17/22 07:30 09/17/22 07:30 09/13/22 20:00 Period Temp Pulse Resp BP Sys/Roberts Pulse Ox O2 Del Method O2 Flow Rate Last 24 Hr 97.2 F-98.6 F 70-83 16-20 113-150/49-74 94-99 Room Air-Room Air Intake and Output 09/16/22 09/17/22 09/17/22 19:59 03:59 11:59 Intake Total 1200 150 Output Total 5 2 1 Balance 1195 148 -1 Weight 65.589 kg Intake & Output: Intake & Output 09/16/22 09/17/22 09/17/22 19:59 03:59 11:59 Intake Total 1200 150 Output Total 5 2 1 Balance 1195 148 -1 Weight 65.589 kg Intake: Oral 1200 150 Output: # of times incontinent of urine 5 2 1 Other: Meal Dinner Percent of Meal Consumed 25% Feeding Ability Assist with Tray Set Up OBJ DATA Labs 09/02/22 05:50 09/02/22 05:50 Meds: Medications Acetaminophen (Acetaminophen 325 Mg Tablet) 650 mg PO Q6HP PRN; Protocol PRN Reason: Per Pain Protocol/Fever > 101 Last Admin: 09/05/22 20:17 Dose: 650 mg Albuterol/Ipratropium (Ipratropium/Albuterol 3 Ml Ampul.Neb) 3 ml NEB Q4HP PRN PRN Reason: Shortness Of Breath Amitriptyline HCl (Amitriptyline 25 Mg Tablet) 50 mg PO HS [facility] Last Admin: 09/16/22 21:02 Dose: 50 mg Aspirin (Aspirin 81 Mg Tab.Chew) 81 mg PO DAILY [facility] Last Admin: 09/16/22 08:09 Dose: 81 mg Dextrose (Dextrose 50% 50 Ml Vial) 0 ml IV UD PRN PRN Reason: Per Sliding Scale Diagnostic Test (Pha) (Accu-Chek 1 Each Strip) 1 each FS [facility] Last Admin: 09/17/22 06:50 Dose: 1 each Diphenhydramine HCl (Diphenhydramine 25 Mg Capsule) 25 mg PO HSP PRN PRN Reason: Insomnia Last Admin: 09/13/22 21:22 Dose: 25 mg Enoxaparin Sodium (Enoxaparin 40 Mg/0.4 Ml Syringe) 40 mg SQ DAILY [facility] Last Admin: 09/16/22 08:09 Dose: 40 mg Gabapentin (Gabapentin 300 Mg Capsule) 300 mg PO HS [facility] Last Admin: 09/16/22 21:02 Dose: 300 mg Glucose (Dextrose 31 Gm Oral.Susp) 15 gm PO PRN PRN PRN Reason: Hypoglycemia Potassium Chloride 40 meq/ (Dextrose) 520 mls @ 130 mls/hr IV UD PRN PRN Reason: Potassium < 3 Magnesium Sulfate (Magnesium Sulfate) 2 gm in 50 mls @ 50 mls/hr IV UD PRN PRN Reason: Magnesium </= 1.6 Insulin Human Lispro (Insulin Lispro 1 Unit/0.01 Ml Unit) 0 unit SQ [facility]; Protocol Last Admin: 09/17/22 06:52 Dose: Not Given Melatonin (Melatonin 3 Mg Tablet) 3 mg PO QHS [facility] Last Admin: 09/16/22 21:02 Dose: 3 mg Montelukast Sodium (Montelukast 10 Mg Tablet) 10 mg PO QPM [facility] Last Admin: 09/16/22 21:02 Dose: 10 mg Olanzapine (Olanzapine 5 Mg Tablet) 5 mg PO HSP PRN PRN Reason: Agitation Last Admin: 09/13/22 21:22 Dose: 5 mg Ondansetron HCl (Ondansetron 4 Mg/2 Ml Vial) 4 mg IV Q4HP PRN PRN Reason: Nausea And Vomiting Fluticasone- Umeclidinium- Vilanterol [Trelegy Ellipta] Inhaler 1 dose INH Q24H [facility] Last Admin: 09/16/22 08:09 Dose: 1 dose Potassium Chloride (Potassium Chloride 20 Meq Tablet) 40 meq PO UD PRN PRN Reason: Potssium is 3-3.5 Potassium Chloride (Potassium Chloride 20 Meq Tablet) 40 meq PO UD PRN PRN Reason: Potassium < 3 Pramipexole Dihydrochloride (Pramipexole 0.25 Mg Tablet) 0.25 - 0.5 mg PO HS [facility] Last Admin: 09/16/22 21:03 Dose: 0.5 mg Quetiapine Fumarate (Quetiapine 25 Mg Tablet) 25 mg PO HSP PRN PRN Reason: Agitation Last Admin: 09/11/22 22:50 Dose: 25 mg Simvastatin (Simvastatin 10 Mg Tablet) 10 mg PO HS [facility] Last Admin: 09/16/22 21:02 Dose: 10 mg A/P Narrative A/P Narrative: A: *Gastroenteritis(Diarrhea and N/V):resolved -cdiff neg, fecal wbc neg *UTI(Enterococcus/Aerococcus): treated *Sepsis: resolved *Volume depletion: improved *Dementia: *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
[2022-09-17] MEDS: ASPIRIN 81 MG TAB.CHEW PO SCH (08:17)
[2022-09-17] MEDS: ENOXAPARIN 40 MG/0.4 ML SYRINGE SQ SCH (08:17)
[2022-09-17] MEDS: Fluticasone-Umeclidinium-Vilanterol [Trelegy Ellipta] Inhaler INH SCH (08:17)
[2022-09-17] MEDS: MONTELUKAST 10 MG TABLET PO SCH (21:30)
[2022-09-17] MEDS: MELATONIN 3 MG TABLET PO SCH (21:30)
[2022-09-17] MEDS: AMITRIPTYLINE 25 MG TABLET PO SCH (21:30)
[2022-09-17] MEDS: GABAPENTIN 300 MG CAPSULE PO SCH (21:30)
[2022-09-17] MEDS: PRAMIPEXOLE 0.25 MG TABLET PO SCH (21:31)
[2022-09-17] MEDS: SIMVASTATIN 10 MG TABLET PO SCH (21:31)
[2022-09-18] MEDS: ASPIRIN 81 MG TAB.CHEW PO SCH (08:06)
[2022-09-18] MEDS: ENOXAPARIN 40 MG/0.4 ML SYRINGE SQ SCH (08:06)
[2022-09-18] MEDS: Fluticasone-Umeclidinium-Vilanterol [Trelegy Ellipta] Inhaler INH SCH (08:07)
[2022-09-18] MEDS: INSULIN LISPRO 1 UNIT/0.01 ML UNIT SQ SCH ×4 (08:07→22:59)
--- NOTE | 2022-09-18 14:44 | Internal Med Progress Note ---
SUBJECTIVE Subjective Patient information: Note initiated : 09/18/22 at 2:37 pm Service Date, if different from initiated Date: [] Patient: Sharon Pierce a 81 y/o F admitted on 09/01/22 for N/v/d. Chief Complaint: [] Interval history: Ms. Pierce is a 81 year old F Patient is a poor historian given her dementia and most of the history is obtained from the chart. Sounds like she has had 3 days of nausea vomiting diarrhea most notably the diarrhea. Her family members unable to care for her at home. In the ED she was seen and evaluated and had a CT abdomen pelvis which showed no acute pathology but did show some bilateral ovarian cyst considered abnormal for her age and pelvic ultrasound was recommended. She was tachycardic at 120 but blood pressure was stable. Other vital signs are stable. Mild leukocytosis of 13. No lactic acidosis. Renal function Near baseline. C. difficile negative in the ED. 2/ Still having liquid brown stools. Pending stool studies. Leukocytosis present. UTI noted on UA from yesterday. Pelvic ultrasound shows bilateral cysts no solid masses. Chronic kidney disease with elevated creatinine. Awaiting home medication reconciliation. 09/02 Patient appears to be in good spirits today. No diarrhea overnight. at bedside. Leukocytosis resolved. Pending urine and stool cultures. 09/03 Patient impulsive and agitated at times yesterday. Restless last night. Calm and resting this morning. Pleasant this morning. Diarrhea much improved. Bowel movements now soft. Urine culture with Enterococ cus and Aerococcus. 09/04 Diarrhea essentially resolved. Awaiting placement. Pleasant this morning. Awaiting placement. 09/05 Patient was restless last afternoon and early evening. Sitting her chair this morning pleasant and cooperative. 09/06 No significant events overnight, awaiting placement. 09/07 Vital stable overnight, no significant events since yesterday. The patient is in good spirits today, awaiting placement. 09/08 No changes since yesterday. The patient is pleasant and cooperative with cares. Awaiting placement. 09/09 The patient is pleasant and cooperative with cares. Awaiting placement. 09/10 The patient has been pleasant and cooperative with cares for several days. Awaiting placement. 09/11 Again patient cooperative last night. No over night issues. 09/12 Doing well. Sitting up at bedside. No overnight events or new complaints. 215 Sleeping but awakens. No overnight event or new complaints. 09/14 No changes overnight. Patient pleasant. Awaiting placement. 09/15 Patient happy and pleasant this morning. Sitting up in chair. Awaiting placement. 09/16 Doing well. No change. Awaiting placement. 09/17 No overnight event or new complaints. Patient feeling well. Pleasant. Sitting up in chair. 09/18: There was no major overnight events. Patient has no complaints. She is clinically stable. Awaiting SNF placement. Constitutional Vitals: Vital Signs Temp Pulse Resp BP Pulse Ox O2 Del Method O2 Flow Rate 36.6 C 74 18 120/73 97 Room Air 0 09/18/22 12:00 09/18/22 12:00 09/18/22 12:00 09/18/22 12:09/18/22 12:09/18/22 12:00 09/13/22 20:00 Period Temp Pulse Resp BP Sys/Roberts Pulse Ox O2 Del Method O2 Flow Rate Last 24 Hr 36.1 C-36.7 C 69-85 16-20 120-161/53-75 95-98 Room Air-Room Air Intake and Output 09/18/22 09/18/22 09/18/22 03:59 11:59 19:59 Intake Total 600 240 Output Total 2 1 Balance 598 239 Weight 64.864 kg Intake & Output: Intake & Output 09/18/22 09/18/22 09/18/22 03:59 11:59 19:59 Intake Total 600 240 Output Total 2 1 Balance 598 239 Weight 64.864 kg Intake: Oral 600 240 Output: # of times incontinent of urine 2 1 Other: Meal Breakfast Lunch Percent of Meal Consumed 50% 75% Feeding Ability Assist with Tray Set Up Assist with Tray Set Up Stool Size Moderate Stool Color Brown Stool Consistency Dry and Hard Eliane Head Head exam: Present atraumatic and normal inspection Eye Eye exam: Present normal appearance ENT ENT exam: Present mucous membranes moist, normal exam and normal external ear exam Neck Neck exam: Present normal inspection Respiratory Respiratory exam: Present normal respiratory exam Cardiovascular Cardiovascular exam: Present normal rate and rhythm GI/Abdominal GI/Abdominal exam: Present normal bowel sounds Back Exam Back exam: Present normal inspection Neurological Exam Neurological exam: Present alert and oriented X3 Skin Skin exam: Present intact and warm OBJ DATA Labs 09/02/22 05:50 09/02/22 05:50 Meds: Medications Acetaminophen (Acetaminophen 325 Mg Tablet) 650 mg PO Q6HP PRN; Protocol PRN Reason: Per Pain Protocol/Fever > 101 Last Admin: 09/05/22 20:17 Dose: 650 mg Albuterol/Ipratropium (Ipratropium/Albuterol 3 Ml Ampul.Neb) 3 ml NEB Q4HP PRN PRN Reason: Shortness Of Breath Amitriptyline HCl (Amitriptyline 25 Mg Tablet) 50 mg PO HS [facility] Last Admin: 09/17/22 21:30 Dose: 50 mg Aspirin (Aspirin 81 Mg Tab.Chew) 81 mg PO DAILY [facility] Last Admin: 09/18/22 08:06 Dose: 81 mg Dextrose (Dextrose 50% 50 Ml Vial) 0 ml IV UD PRN PRN Reason: Per Sliding Scale Diagnostic Test (Pha) (Accu-Chek 1 Each Strip) 1 each FS [facility] Last Admin: 09/18/22 12:32 Dose: 1 each Diphenhydramine HCl (Diphenhydramine 25 Mg Capsule) 25 mg PO HSP PRN PRN Reason: Insomnia Last Admin: 09/13/22 21:22 Dose: 25 mg Enoxaparin Sodium (Enoxaparin 40 Mg/0.4 Ml Syringe) 40 mg SQ DAILY [facility] Last Admin: 09/18/22 08:06 Dose: 40 mg Gabapentin (Gabapentin 300 Mg Capsule) 300 mg PO HS [facility] Last Admin: 09/17/22 21:30 Dose: 300 mg Glucose (Dextrose 31 Gm Oral.Susp) 15 gm PO PRN PRN PRN Reason: Hypoglycemia Potassium Chloride 40 meq/ (Dextrose) 520 mls @ 130 mls/hr IV UD PRN PRN Reason: Potassium < 3 Magnesium Sulfate (Magnesium Sulfate) 2 gm in 50 mls @ 50 mls/hr IV UD PRN PRN Reason: Magnesium </= 1.6 Insulin Human Lispro (Insulin Lispro 1 Unit/0.01 Ml Unit) 0 unit SQ ACHS [facility]; Protocol Last Admin: 09/18/22 12:32 Dose: Not Given Melatonin (Melatonin 3 Mg Tablet) 3 mg PO QHS [facility] Last Admin: 09/17/22 21:30 Dose: 3 mg Montelukast Sodium (Montelukast 10 Mg Tablet) 10 mg PO QPM [facility] Last Admin: 09/17/22 21:30 Dose: 10 mg Olanzapine (Olanzapine 5 Mg Tablet) 5 mg PO HSP PRN PRN Reason: Agitation Last Admin: 09/13/22 21:22 Dose: 5 mg Ondansetron HCl (Ondansetron 4 Mg/2 Ml Vial) 4 mg IV Q4HP PRN PRN Reason: Nausea And Vomiting Fluticasone- Umeclidinium- Vilanterol [Trelegy Ellipta] Inhaler 1 dose INH Q24H [facility] Last Admin: 09/18/22 08:07 Dose: 1 dose Potassium Chloride (Potassium Chloride 20 Meq Tablet) 40 meq PO UD PRN PRN Reason: Potssium is 3-3.5 Potassium Chloride (Potassium Chloride 20 Meq Tablet) 40 meq PO UD PRN PRN Reason: Potassium < 3 Pramipexole Dihydrochloride (Pramipexole 0.25 Mg Tablet) 0.25 - 0.5 mg PO [facility] Last Admin: 09/17/22 21:31 Dose: 0.5 mg Quetiapine Fumarate (Quetiapine 25 Mg Tablet) 25 mg PO HSP PRN PRN Reason: Agitation Last Admin: 09/11/22 22:50 Dose: 25 mg Simvastatin (Simvastatin 10 Mg Tablet) 10 mg PO [facility] Last Admin: 09/17/22 21:31 Dose: 10 mg A/P Assessment and plan (1) Gastroenteritis: Status: Acute (2) Recurrent urinary tract infection: Status: Acute (3) Type 2 diabetes mellitus: Status: Chronic Qualifiers: Diabetes mellitus retirement insulin use: without retirement use Diabetes mellitus complication status: without complication Qualified Code(s): E11.9 - Type 2 diabetes mellitus without complications (4) Hyperlipidemia: Status: Chronic Qualifiers: Hyperlipidemia type: mixed hyperlipidemia Qualified Code(s): E78.2 - Mixed hyperlipidemia (5) Dementia: Status: Chronic Qualifiers: Dementia type: Alzheimer's Alzheimer's disease onset: unspecified onset Dementia behavioral disturbance: without behavioral disturbance Qualified Code(s): G30.9 - Alzheimer's disease, unspecified; F02.80 - Dementia in other diseases classified elsewhere without behavioral disturbance (6) Benign essential HTN: Status: Chronic (7) Kidney disease, chronic, stage III (GFR 30-59 ml/min): Status: Chronic (8) Asthma-COPD overlap syndrome: Status: Chronic (9) Muscle weakness: Status: Acute Narrative A/P Narrative: Assessment and Plans: 1. Gastroenteritis: Resolved 2. Urinary tract infection: Resolved s/p antibiotics 3. Sepsis: Resolved 4. Dementia: Awaiting SNF placement 5. General weakness: Awaiting SNF placement 6. T2DM: HgA1c 6.9 Accu Check AC HS Insulin Lispro AC HS Hypoglycemia protocol Diabetic diet 7. COPD: Trelegy Ellipta Singular 8. Hyperlipidemia: Continue statin therapy 9. Chronic kidney disease stage III: Stable, continue to monitor 10. Incidental bilateral ovarian cysts: Repeat US in 3-6month to follow up and monitor GI ppx: not currently indicated DVT ppx: Lovenox Code status: DNR Prognosis: stable Disposition: inpatient med surg; SNF Time Spent With Patient Time: Total time spent is greater than 50% in coordination of care (as documented) at patient's floor/unit and/or counseling patient: Subsequent: Total time with patient: 35 - 49 minutes QUALITY VTE Deep Vein Thrombosis/Pulmonary Embolism Present on Admission: No
[2022-09-18] MEDS: GABAPENTIN 300 MG CAPSULE PO SCH (21:06)
[2022-09-18] MEDS: MONTELUKAST 10 MG TABLET PO SCH (21:06)
[2022-09-18] MEDS: MELATONIN 3 MG TABLET PO SCH (21:06)
[2022-09-18] MEDS: AMITRIPTYLINE 25 MG TABLET PO SCH (21:06)
[2022-09-18] MEDS: SIMVASTATIN 10 MG TABLET PO SCH (21:06)
[2022-09-18] MEDS: PRAMIPEXOLE 0.25 MG TABLET PO SCH (21:11)
[2022-09-19] MEDS: INSULIN LISPRO 1 UNIT/0.01 ML UNIT SQ SCH ×4 (07:45→20:28)
[2022-09-19] MEDS: Fluticasone-Umeclidinium-Vilanterol [Trelegy Ellipta] Inhaler INH SCH (08:32)
[2022-09-19] MEDS: ENOXAPARIN 40 MG/0.4 ML SYRINGE SQ SCH (08:32)
[2022-09-19] MEDS: ASPIRIN 81 MG TAB.CHEW PO SCH (08:32)
--- NOTE | 2022-09-19 13:57 | Internal Med Progress Note ---
SUBJECTIVE Subjective Patient information: Note initiated : 09/19/22 at 1:54 pm Service Date, if different from initiated Date: [] Patient: Sharon Pierce a 81 y/o F admitted on 09/01/22 for N/v/d. Chief Complaint: [] Interval history: Ms. Pierce is a 81 year old F Patient is a poor historian given her dementia and most of the history is obtained from the chart. Sounds like she has had 3 days of nausea vomiting diarrhea most notably the diarrhea. Her family members unable to care for her at home. In the ED she was seen and evaluated and had a CT abdomen pelvis which showed no acute pathology but did show some bilateral ovarian cyst considered abnormal for her age and pelvic ultrasound was recommended. She was tachycardic at 120 but blood pressure was stable. Other vital signs are stable. Mild leukocytosis of 13. No lactic acidosis. Renal function Near baseline. C. difficile negative in the ED. 2/ Still having liquid brown stools. Pending stool studies. Leukocytosis present. UTI noted on UA from yesterday. Pelvic ultrasound shows bilateral cysts no solid masses. Chronic kidney disease with elevated creatinine. Awaiting home medication reconciliation. 09/02 Patient appears to be in good spirits today. No diarrhea overnight. at bedside. Leukocytosis resolved. Pending urine and stool cultures. 09/03 Patient impulsive and agitated at times yesterday. Restless last night. Calm and resting this morning. Pleasant this morning. Diarrhea much improved. Bowel movements now soft. Urine culture with Enterococ cus and Aerococcus. 09/04 Diarrhea essentially resolved. Awaiting placement. Pleasant this morning. Awaiting placement. 09/05 Patient was restless last afternoon and early evening. Sitting her chair this morning pleasant and cooperative. 09/06 No significant events overnight, awaiting placement. 09/07 Vital stable overnight, no significant events since yesterday. The patient is in good spirits today, awaiting placement. 09/08 No changes since yesterday. The patient is pleasant and cooperative with cares. Awaiting placement. 09/09 The patient is pleasant and cooperative with cares. Awaiting placement. 09/10 The patient has been pleasant and cooperative with cares for several days. Awaiting placement. 09/11 Again patient cooperative last night. No over night issues. 09/12 Doing well. Sitting up at bedside. No overnight events or new complaints. 215 Sleeping but awakens. No overnight event or new complaints. 09/14 No changes overnight. Patient pleasant. Awaiting placement. 09/15 Patient happy and pleasant this morning. Sitting up in chair. Awaiting placement. 09/16 Doing well. No change. Awaiting placement. 09/17 No overnight event or new complaints. Patient feeling well. Pleasant. Sitting up in chair. 09/18: There was no major overnight events. Patient has no complaints. She is clinically stable. Awaiting SNF placement. 09/19: Patient seems altered and agitated. Denies any pain or discomfort. Awaiting SNF placement. Constitutional Vitals: Vital Signs Temp Pulse Resp BP Pulse Ox O2 Del Method O2 Flow Rate 36.3 C 73 18 128/66 98 Room Air 0 09/19/22 12:00 09/19/22 12:00 09/19/22 12:00 09/19/22 12:00 09/19/22 12:00 09/19/22 12:00 09/13/22 20:00 Period Temp Pulse Resp BP Sys/Roberts Pulse Ox O2 Del Method O2 Flow Rate Last 24 Hr 36.3 C-36.7 C 72-89 12-18 126-150/61-71 95-98 Room Air-Room Air Intake and Output 09/19/22 09/19/22 09/19/22 03:59 11:59 19:59 Intake Total 480 940 Output Total 1 2 Balance -1 478 940 Intake & Output: Intake & Output 09/19/22 09/19/22 09/19/22 03:59 11:59 19:59 Intake Total 480 940 Output Total 1 2 Balance -1 478 940 Intake: Oral 480 940 Output: # of times incontinent of urine 1 2 Other: Meal Breakfast Lunch Percent of Meal Consumed 100% 100% Feeding Ability Assist with Tray Set Up Assist with Tray Set Up General appearance: disheveled Head Head exam: Present atraumatic and normal inspection Eye Eye exam: Present normal appearance ENT ENT exam: Present mucous membranes moist, normal exam and normal external ear exam Neck Neck exam: Present normal inspection Respiratory Respiratory exam: Present normal respiratory exam Cardiovascular Cardiovascular exam: Present normal rate and rhythm GI/Abdominal GI/Abdominal exam: Present normal bowel sounds Back Exam Back exam: Present normal inspection Neurological Exam Neurological exam: Present alert and altered Psychiatric Psychiatric exam: Present agitated Skin Skin exam: Present intact and warm OBJ DATA Labs 09/02/22 05:50 09/02/22 05:50 Meds: Medications Acetaminophen (Acetaminophen 325 Mg Tablet) 650 mg PO Q6HP PRN; Protocol PRN Reason: Per Pain Protocol/Fever > 101 Last Admin: 09/05/22 20:17 Dose: 650 mg Albuterol/Ipratropium (Ipratropium/Albuterol 3 Ml Ampul.Neb) 3 ml NEB Q4HP PRN PRN Reason: Shortness Of Breath Amitriptyline HCl (Amitriptyline 25 Mg Tablet) 50 mg PO HS [facility] Last Admin: 09/18/22 21:06 Dose: 50 mg Aspirin (Aspirin 81 Mg Tab.Chew) 81 mg PO DAILY [facility] Last Admin: 09/19/22 08:32 Dose: 81 mg Dextrose (Dextrose 50% 50 Ml Vial) 0 ml IV UD PRN PRN Reason: Per Sliding Scale Diagnostic Test (Pha) (Accu-Chek 1 Each Strip) 1 each FS ACHS [facility] Last Admin: 09/19/22 11:42 Dose: 1 each Diphenhydramine HCl (Diphenhydramine 25 Mg Capsule) 25 mg PO HSP PRN PRN Reason: Insomnia Last Admin: 09/13/22 21:22 Dose: 25 mg Enoxaparin Sodium (Enoxaparin 40 Mg/0.4 Ml Syringe) 40 mg SQ DAILY [facility] Last Admin: 09/19/22 08:32 Dose: 40 mg Gabapentin (Gabapentin 300 Mg Capsule) 300 mg PO HS [facility] Last Admin: 09/18/22 21:06 Dose: 300 mg Glucose (Dextrose 31 Gm Oral.Susp) 15 gm PO PRN PRN PRN Reason: Hypoglycemia Potassium Chloride 40 meq/ (Dextrose) 520 mls @ 130 mls/hr IV UD PRN PRN Reason: Potassium < 3 Magnesium Sulfate (Magnesium Sulfate) 2 gm in 50 mls @ 50 mls/hr IV UD PRN PRN Reason: Magnesium </= 1.6 Insulin Human Lispro (Insulin Lispro 1 Unit/0.01 Ml Unit) 0 unit SQ ACHS [facility]; Protocol Last Admin: 09/19/22 11:42 Dose: Not Given Melatonin (Melatonin 3 Mg Tablet) 3 mg PO QHS [facility] Last Admin: 09/18/22 21:06 Dose: 3 mg Montelukast Sodium (Montelukast 10 Mg Tablet) 10 mg PO QPM [facility] Last Admin: 09/18/22 21:06 Dose: 10 mg Olanzapine (Olanzapine 5 Mg Tablet) 5 mg PO HSP PRN PRN Reason: Agitation Last Admin: 09/13/22 21:22 Dose: 5 mg Ondansetron HCl (Ondansetron 4 Mg/2 Ml Vial) 4 mg IV Q4HP PRN PRN Reason: Nausea And Vomiting Fluticasone- Umeclidinium- Vilanterol [Trelegy Ellipta] Inhaler 1 dose INH Q24H [facility] Last Admin: 09/19/22 08:32 Dose: Not Given Potassium Chloride (Potassium Chloride 20 Meq Tablet) 40 meq PO UD PRN PRN Reason: Potssium is 3-3.5 Potassium Chloride (Potassium Chloride 20 Meq Tablet) 40 meq PO UD PRN PRN Reason: Potassium < 3 Pramipexole Dihydrochloride (Pramipexole 0.25 Mg Tablet) 0.25 - 0.[address] [facility] Last Admin: 09/18/22 21:11 Dose: 0.5 mg Quetiapine Fumarate (Quetiapine 25 Mg Tablet) 25 mg PO HSP PRN PRN Reason: Agitation Last Admin: 09/11/22 22:50 Dose: 25 mg Simvastatin (Simvastatin 10 Mg Tablet) [address] [facility] Last Admin: 09/18/22 21:06 Dose: 10 mg A/P Assessment and plan (1) Gastroenteritis: Status: Acute (2) Recurrent urinary tract infection: Status: Acute (3) Type 2 diabetes mellitus: Status: Chronic Qualifiers: Diabetes mellitus fdc insulin use: without termite technician use Diabetes mellitus complication status: without complication Qualified Code(s): E11.9 - Type 2 diabetes mellitus without complications (4) Hyperlipidemia: Status: Chronic Qualifiers: Hyperlipidemia type: mixed hyperlipidemia Qualified Code(s): E78.2 - Mixed hyperlipidemia (5) Dementia: Status: Chronic Qualifiers: Dementia type: Alzheimer's Alzheimer's disease onset: unspecified onset Dementia behavioral disturbance: without behavioral disturbance Qualified Code(s): G30.9 - Alzheimer's disease, unspecified; F02.80 - Dementia in other diseases classified elsewhere without behavioral disturbance (6) Benign essential HTN: Status: Chronic (7) Kidney disease, chronic, stage III (GFR 30-59 ml/min): Status: Chronic (8) Asthma-COPD overlap syndrome: Status: Chronic (9) Muscle weakness: Status: Acute Narrative A/P Narrative: Assessment and Plans: 1. Gastroenteritis: Resolved 2. Urinary tract infection: Resolved s/p antibiotics 3. Sepsis: Resolved 4. Dementia: Awaiting SNF placement CXR, UA with urine culture, cbc, CMP to rule out concurrent/recurrent infections 5. General weakness: Awaiting SNF placement 6. T2DM: HgA1c 6.9 Accu Check AC HS Insulin Lispro AC HS Hypoglycemia protocol Diabetic diet 7. COPD: Trelegy Ellipta Singular 8. Hyperlipidemia: Continue statin therapy 9. Chronic kidney disease stage III: Stable, continue to monitor 10. Incidental bilateral ovarian cysts: Repeat US in 3-6month to follow up and monitor GI ppx: not currently indicated DVT ppx: Lovenox Code status: DNR Prognosis: stable Disposition: inpatient med surg; SNF Time Spent With Patient Time: Total time spent is greater than 50% in coordination of care (as documented) at patient's floor/unit and/or counseling patient: Subsequent: Total time with patient: 35 - 49 minutes QUALITY VTE Deep Vein Thrombosis/Pulmonary Embolism Present on Admission: No
[2022-09-19] MEDS ORDERED: LORazepam 2 MG/ML ORAL.SOL PO SCH (14:14)
--- NOTE | 2022-09-19 15:36 | XRay Report ---
HISTORY: Increased confusion FINDINGS: The lungs are clear and well expanded. The heart size, pulmonary vasculature, mediastinum, kirk and pleura and bones are normal. There has been no significant change since 04/21/22. IMPRESSION: Normal exam Interpreted and Authenticated by: Jeffrey Dodson 09/19/22
[2022-09-19 16:07] LABS: Basophils # (Auto) 0.04 K/mcL (0.00-0.30); Basophils % (Auto) 0.7 % (0.0-2.0); Eosinophils % (Auto) 9.8 % (0.0-7.0); Hematocrit 38.6 % (34.1-44.9); Hemoglobin 12.5 g/dL (11.2-15.7); Lymphocytes # (Auto) 1.59 K/mcL (1.50-4.80); Lymphocytes % (Auto) 26.1 % (15.5-49.0); Mean Cell Volume 86.7 fL (80.0-100.0); Mean Corpuscular HGB Conc 32.4 g/dL (31.0-36.0); Monocytes # (Auto) 0.43 K/mcL (0.10-0.90); Neutrophils % (Auto) 56.1 % (38.0-78.0); Platelet Count 236 K/mcL (140-440); RBC 4.45 M/mcL (3.59-5.38); Red Cell Distribution Width 14.1 % (11.5-14.5); WBC 6.1 K/mcL (4.5-11.0)
[2022-09-19 16:18] LABS: ALT/SGPT 17 U/L (<40); AST/SGOT 46 U/L (<32); Albumin 4.1 gm/dL (3.2-5.2); Albumin/Globulin Ratio 1.2 (1.0-2.3); Alkaline Phosphatase 94 U/L (39-117); Bilirubin,Total 0.4 mg/dL (0.1-1.0); Blood Urea Nitrogen 18 mg/dL (8-23); Calcium 9.2 mg/dL (8.6-10.4); Carbon Dioxide 25 mmol/L (22-30); Chloride 102 mmol/L (96-108); Globulin 3.4 gm/dL (2.2-3.7); Glomerular Filtration Rate 53; Glucose 126 mg/dL (70-105)
[2022-09-19] MEDS: QUEtiapine 25 MG TABLET PO PRN (20:28)
[2022-09-19] MEDS: MONTELUKAST 10 MG TABLET PO SCH (20:28)
[2022-09-19] MEDS: AMITRIPTYLINE 25 MG TABLET PO SCH (20:28)
[2022-09-19] MEDS: SIMVASTATIN 10 MG TABLET PO SCH (20:28)
[2022-09-19] MEDS: PRAMIPEXOLE 0.25 MG TABLET PO SCH (20:28)
[2022-09-19] MEDS: MELATONIN 3 MG TABLET PO SCH (20:28)
[2022-09-19] MEDS: GABAPENTIN 300 MG CAPSULE PO SCH (20:28)
[2022-09-20] MEDS: INSULIN LISPRO 1 UNIT/0.01 ML UNIT SQ SCH ×4 (07:09→20:24)
[2022-09-20] MEDS: ASPIRIN 81 MG TAB.CHEW PO SCH (08:11)
[2022-09-20] MEDS: Fluticasone-Umeclidinium-Vilanterol [Trelegy Ellipta] Inhaler INH SCH (08:11)
[2022-09-20] MEDS: ENOXAPARIN 40 MG/0.4 ML SYRINGE SQ SCH (08:11)
--- NOTE | 2022-09-20 11:56 | Internal Med Progress Note ---
SUBJECTIVE Subjective Patient information: Note initiated : 09/20/22 at 11:54 am Service Date, if different from initiated Date: [] Patient: Sharon Pierce a 81 y/o F admitted on 09/01/22 for N/v/d. Chief Complaint: [] Interval history: Ms. Pierce is a 81 year old F Patient is a poor historian given her dementia and most of the history is obtain ed from the chart. Sounds like she has had 3 days of nausea vomiting diarrhea most notably the diarrhea. Her family members unable to care for her at home. In the ED she was seen and evaluated and had a CT abdomen pelvis which showed no acute pathology but did show some bilateral ovarian cyst considered abnormal for her age and pelvic ultrasound was recommended. She was tachycardic at 120 but blood pressure was stable. Other vital signs are stable. Mild leukocytosis of 13. No lactic acidosis. Renal function Near baseline. C. difficile negative in the ED. 2/ Still having liquid brown stools. Pending stool studies. Leukocytosis present. UTI noted on UA from yesterday. Pelvic ultrasound shows bilateral cysts no solid masses. Chronic kidney disease with elevated creatinine. Awaiting home medication reconciliation. 09/02 Patient appears to be in good spirits today. No diarrhea overnight. at bedside. Leukocytosis resolved. Pending urine and stool cultures. 09/03 Patient impulsive and agitated at times yesterday. Restless last night. Calm and resting this morning. Pleasant this morning. Diarrhea much improved. Bowel movements now soft. Urine culture with Enteroco ccus and Aerococcus. 09/04 Diarrhea essentially resolved. Awaiting placement. Pleasant this morning. Awaiting placement. 09/05 Patient was restless last afternoon and early evening. Sitting her chair this morning pleasant and cooperative. 09/06 No significant events overnight, awaiting placement. 09/07 Vital stable overnight, no significant events since yesterday. The patient is in good spirits today, awaiting placement. 09/08 No changes since yesterday. The patient is pleasant and cooperative with cares. Awaiting placement. 09/09 The patient is pleasant and cooperative with cares. Awaiting placement. 09/10 The patient has been pleasant and cooperative with cares for several days. Awaiting placement. 09/11 Again patient cooperative last night. No over night issues. 09/12 Doing well. Sitting up at bedside. No overnight events or new complaints. 09/13 Sleeping but awakens. No overnight event or new complaints. 09/14 No changes overnight. Patient pleasant. Awaiting placement. 09/15 Patient happy and pleasant this morning. Sitting up in chair. Awaiting placement. 09/16 Doing well. No change. Awaiting placement. 09/17 No overnight event or new complaints. Patient feeling well. Pleasant. Sitting up in chair. 09/18: There was no major overnight events. Patient has no complaints. She is clinically stable. Awaiting SNF placement. 09/19: Patient seems altered and agitated. Denies any pain or discomfort. Awaiting SNF placement. 09/20: Patient's mentation back to baseline. cbc, cmp, and CXR from 09/19 all unremarkable. Awaiting SNF placement. Constitutional Vitals: Vital Signs Temp Pulse Resp BP Pulse Ox O2 Del Method O2 Flow Rate 36.3 C 67 18 111/56 97 Room Air 0 09/20/22 08:00 09/20/22 08:00 09/20/22 08:00 09/20/22 08:00 09/20/22 08:00 09/20/22 08:00 09/13/22 20:00 Period Temp Pulse Resp BP Sys/Roberts Pulse Ox O2 Del Method O2 Flow Rate Last 24 Hr 36.3 C-36.5 C 67-89 16-18 111-139/56-66 97-99 Room Air-Room Air Intake and Output 09/19/22 09/20/22 09/20/22 19:59 03:59 11:59 Intake Total 1240 480 Output Total 102 1 Balance 1138 479 Weight 65.907 kg 65.816 kg Intake & Output: Intake & Output 09/19/22 09/20/22 09/20/22 19:59 03:59 11:59 Intake Total 1240 480 Output Total 102 1 Balance 1138 479 Weight 65.907 kg 65.816 kg Intake: Oral 1240 480 Output: Void Amount 100 # of times incontinent of urine 2 1 Other: Meal Dinner Breakfast Percent of Meal Consumed 75% 100% Feeding Ability Assist with Tray Set Up Assist with Tray Set Up Head Head exam: Present atraumatic and normal inspection Eye Eye exam: Present normal appearance ENT ENT exam: Present mucous membranes moist, normal exam and normal external ear exam Neck Neck exam: Present normal inspection Respiratory Respiratory exam: Present normal respiratory exam Cardiovascular Cardiovascular exam: Present normal rate and rhythm GI/Abdominal GI/Abdominal exam: Present normal bowel sounds Back Exam Back exam: Present normal inspection Neurological Exam Neurological exam: Present alert and oriented X3 Skin Skin exam: Present intact and warm OBJ DATA Labs 09/19/22 15:33 09/19/22 15:32 Labs: Abnormal Lab Results 09/19/22 09/19/22 15:33 15:32 Eos % (Auto) 9.8 H Glucose 126 H AST 46 H Meds: Medications Acetaminophen (Acetaminophen 325 Mg Tablet) 650 mg PO Q6HP PRN; Protocol PRN Reason: Per Pain Protocol/Fever > 101 Last Admin: 09/05/22 20:17 Dose: 650 mg Albuterol/Ipratropium (Ipratropium/Albuterol 3 Ml Ampul.Neb) 3 ml NEB Q4HP PRN PRN Reason: Shortness Of Breath Amitriptyline HCl (Amitriptyline 25 Mg Tablet) 50 mg PO [facility] Last Admin: 09/19/22 20:28 Dose: 50 mg Aspirin (Aspirin 81 Mg Tab.Chew) 81 mg PO DAILY [facility] Last Admin: 09/20/22 08:11 Dose: 81 mg Dextrose (Dextrose 50% 50 Ml Vial) 0 ml IV UD PRN PRN Reason: Per Sliding Scale Diagnostic Test (Pha) (Accu-Chek 1 Each Strip) 1 each FS [facility] Last Admin: 09/20/22 07:09 Dose: 1 each Diphenhydramine HCl (Diphenhydramine 25 Mg Capsule) 25 mg PO HSP PRN PRN Reason: Insomnia Last Admin: 09/13/22 21:22 Dose: 25 mg Gabapentin (Gabapentin 300 Mg Capsule) 300 mg PO [facility] Last Admin: 09/19/22 20:28 Dose: 300 mg Glucose (Dextrose 31 Gm Oral.Susp) 15 gm PO PRN PRN PRN Reason: Hypoglycemia Potassium Chloride 40 meq/ (Dextrose) 520 mls @ 130 mls/hr IV UD PRN PRN Reason: Potassium < 3 Magnesium Sulfate (Magnesium Sulfate) 2 gm in 50 mls @ 50 mls/hr IV UD PRN PRN Reason: Magnesium </= 1.6 Insulin Human Lispro (Insulin Lispro 1 Unit/0.01 Ml Unit) 0 unit SQ [facility]; Protocol Last Admin: 09/20/22 07:09 Dose: Not Given Melatonin (Melatonin 3 Mg Tablet) 3 mg PO QHS [facility] Last Admin: 09/19/22 20:28 Dose: 3 mg Montelukast Sodium (Montelukast 10 Mg Tablet) 10 mg PO QPM [facility] Last Admin: 09/19/22 20:28 Dose: 10 mg Olanzapine (Olanzapine 5 Mg Tablet) 5 mg PO HSP PRN PRN Reason: Agitation Last Admin: 09/13/22 21:22 Dose: 5 mg Ondansetron HCl (Ondansetron 4 Mg/2 Ml Vial) 4 mg IV Q4HP PRN PRN Reason: Nausea And Vomiting Fluticasone- Umeclidinium- Vilanterol [Trelegy Ellipta] Inhaler 1 dose INH Q24H [facility] Last Admin: 09/20/22 08:11 Dose: Not Given Potassium Chloride (Potassium Chloride 20 Meq Tablet) 40 meq PO UD PRN PRN Reason: Potssium is 3-3.5 Potassium Chloride (Potassium Chloride 20 Meq Tablet) 40 meq PO UD PRN PRN Reason: Potassium < 3 Pramipexole Dihydrochloride (Pramipexole 0.25 Mg Tablet) 0.25 - 0.5 mg PO [facility] Last Admin: 09/19/22 20:28 Dose: 0.5 mg Quetiapine Fumarate (Quetiapine 25 Mg Tablet) 25 mg PO HSP PRN PRN Reason: Agitation Last Admin: 09/19/22 20:28 Dose: 25 mg Simvastatin (Simvastatin 10 Mg Tablet) 10 mg PO [facility] Last Admin: 09/19/22 20:28 Dose: 10 mg A/P Assessment and plan (1) Gastroenteritis: Status: Acute (2) Recurrent urinary tract infection: Status: Acute (3) Type 2 diabetes mellitus: Status: Chronic Qualifiers: Diabetes mellitus group home insulin use: without group home use Diabetes mellitus complication status: without complication Qualified Code(s): E11.9 - Type 2 diabetes mellitus without complications (4) Hyperlipidemia: Status: Chronic Qualifiers: Hyperlipidemia type: mixed hyperlipidemia Qualified Code(s): E78.2 - Mixed hyperlipidemia (5) Dementia: Status: Chronic Qualifiers: Dementia type: Alzheimer's Alzheimer's disease onset: unspecified onset Dementia behavioral disturbance: without behavioral disturbance Qualified Code(s): G30.9 - Alzheimer's disease, unspecified; F02.80 - Dementia in other diseases classified elsewhere without behavioral disturbance (6) Benign essential HTN: Status: Chronic (7) Kidney disease, chronic, stage III (GFR 30-59 ml/min): Status: Chronic (8) Asthma-COPD overlap syndrome: Status: Chronic (9) Muscle weakness: Status: Acute Narrative A/P Narrative: Assessment and Plans: 1. Gastroenteritis: Resolved 2. Urinary tract infection: Resolved s/p antibiotics 3. Sepsis: Resolved 4. Dementia: Awaiting SNF placement CXR, UA with urine culture, cbc, CMP to rule out concurrent/recurrent infections 5. General weakness: Awaiting SNF placement 6. T2DM: HgA1c 6.9 Accu Check AC HS Insulin Lispro AC HS Hypoglycemia protocol Diabetic diet 7. COPD: Trelegy Ellipta Singular 8. Hyperlipidemia: Continue statin therapy 9. Chronic kidney disease stage III: Stable, continue to monitor 10. Incidental bilateral ovarian cysts: Repeat US in 3-6month to follow up and monitor GI ppx: not currently indicated DVT ppx: patient is ambulatory Code status: DNR Prognosis: stable Disposition: inpatient med surg; SNF Time Spent With Patient Time: Total time spent is greater than 50% in coordination of care (as documented) at patient's floor/unit and/or counseling patient: Subsequent: Total time with patient: 35 - 49 minutes QUALITY VTE Deep Vein Thrombosis/Pulmonary Embolism Present on Admission: No
[2022-09-20] MEDS: AMITRIPTYLINE 25 MG TABLET PO SCH (20:29)
[2022-09-20] MEDS: PRAMIPEXOLE 0.25 MG TABLET PO SCH (20:29)
[2022-09-20] MEDS: MELATONIN 3 MG TABLET PO SCH (20:29)
[2022-09-20] MEDS: MONTELUKAST 10 MG TABLET PO SCH (20:29)
[2022-09-20] MEDS: GABAPENTIN 300 MG CAPSULE PO SCH (20:29)
[2022-09-20] MEDS: SIMVASTATIN 10 MG TABLET PO SCH (20:30)
[2022-09-21] MEDS: INSULIN LISPRO 1 UNIT/0.01 ML UNIT SQ SCH ×2 (07:15→12:04)
[2022-09-21 07:51] LABS: Appearance,Urine CLOUDY (Clear); Bilirubin,Urine Negative (Negative); Color,Urine YELLOW; Culture Indicated,Urine No; Glucose,Urine (UA) Negative (Negative); Ketones,Urine Negative (Negative); Leukocyte Esterase,Urine 500 /uL (Negative); Nitrate,Urine POS (Negative); Protein,Urine Negative (Negative); Specific Gravity,Urine 1.009 (1.000-1.035); Urine Blood Negative (Negative); Urine RBC 24 /hpf (0-3); Urine Squamous Epithelial Cell 7 /hpf (0-4); Urine WBC > 182 /hpf (0-4); Urobilinogen,Urine Negative
[2022-09-21] MEDS: Fluticasone-Umeclidinium-Vilanterol [Trelegy Ellipta] Inhaler INH SCH ×2 (09:00→10:07)
--- NOTE | 2022-09-21 10:00 | Discharge Summary ---
Discharge Provider Provider IMPORTANT FOLLOW-UP INFORMATION FOR PCP: Patient information: Note initiated : 09/21/22 at 9:58 am Service Date, if different from initiated Date: [] Patient: Sharon Pierce a 81 y/o F admitted on 09/01/22 for N/v/d. Chief Complaint: [] Date of admission: 09/01/22 07:48 Discharge date: 09/21/22 Primary care physician: Rosaura Andrews Attending physician on admission: Benjamin Grubbs Consults: 08/31/22 Consult to Physician [CONS] Stat Comment: Consulting Provider: Benjamin Grubbs Reason For Exam: Physician to Consult 09/04/22 09:05 Consult to Physician [CONS] Routine Comment: snf referral Consulting Provider: [facility] Reason For Exam: Physician to Consult Attending physician on discharge: Maximino Ennis Pui COURSE Hospital Course Hospital course: Ms. Pierce is a 81 year old F Patient is a poor historian given her dementia and most of the history is obtained from the chart. Sounds like she has had 3 days of nausea vomiting diarrhea most notably the diarrhea. Her family members unable to care for her at home. In the ED she was seen and evaluated and had a CT abdomen pelvis which showed no acute pathology but did show some bilateral ovarian cyst considered abnormal for her age and pelvic ultrasound was recommended. She was tachycardic at 120 but blood pressure was stable. Other vital signs are stable. Mild leukocytosis of 13. No lactic acidosis. Renal function Near baseline. C. difficile negative in the ED. 2/3 Still having liquid brown stools. Pending stool studies. Leukocytosis present. UTI noted on UA from yesterday. Pelvic ultrasound shows bilateral cysts no solid masses. Chronic kidney disease with elevated creatinine. Awaiting home medication reconciliation. 2/4 Patient appears to be in good spirits today. No diarrhea overnight. at bedside. Leukocytosis resolved. Pending urine and stool cultures. 2/ Patient impulsive and agitated at times yesterday. Restless last night. Calm and resting this morning. Pleasant this morning. Diarrhea much improved. Bowel movements now soft. Urine culture with Enterococcus and Aerococcus. 2 Diarrhea essentially resolved. Awaiting placement. Pleasant this morning. Awaiting placement. 2 Patient was restless last afternoon and early evening. Sitting her chair this morning pleasant and cooperative. 2 No significant events overnight, awaiting placement. 09/07 Vital stable overnight, no significant events since yesterday. The patient is in good spirits today, awaiting placement. 09/08 No changes since yesterday. The patient is pleasant and cooperative with cares. Awaiting placement. 09/09 The patient is pleasant and cooperative with cares. Awaiting placement. 09/10 The patient has been pleasant and cooperative with cares for several days. Awaiting placement. 09/11 Again patient cooperative last night. No over night issues. 09/12 Doing well. Sitting up at bedside. No overnight events or new complaints. 09/13 Sleeping but awakens. No overnight event or new complaints. 09/14 No changes overnight. Patient pleasant. Awaiting placement. 09/15 Patient happy and pleasant this morning. Sitting up in chair. Awaiting placement. 09/16 Doing well. No change. Awaiting placement. 09/17 No overnight event or new complaints. Patient feeling well. Pleasant. Sitting up in chair. 09/18: There was no major overnight events. Patient has no complaints. She is clinically stable. Awaiting SNF placement. 09/19: Patient seems altered and agitated. Denies any pain or discomfort. Awaiting SNF placement. 09/20: Patient's mentation back to baseline. cbc, cmp, and CXR from 09/19 all unremarkable. Awaiting SNF placement. 09/21: Discharged to [facility]. Discharge diagnosis: Dementia Time Spent with Patient Time attestation: Total time spent providing and/or coordinating discharge services: Time spent: Less than 30 minutes EXAM Constitutional Vitals: Temp Pulse Resp BP Pulse Ox O2 Del Method O2 Flow Rate 36.9 C 65 14 144/66 98 Room Air 0 09/21/22 07:19 09/21/22 07:19 09/21/22 07:19 09/21/22 07:19 09/21/22 08:00 09/21/22 08:00 09/13/22 20:00 General appearance: cooperative and no acute distress Head Head exam: Present atraumatic and normocephalic Eye Eye exam: Present EOMI and PERRL ENT ENT exam: Present mucous membranes moist, normal exam and normal external ear exam Neck Neck exam: Present normal inspection; Absent lymphadenopathy, tenderness or thyromegaly Respiratory Respiratory exam: Absent accessory muscle use, respiratory distress or wheezes Cardiovascular Cardiovascular exam: Present normal rate and rhythm; Absent JVD GI/Abdominal GI/Abdominal exam: Present normal bowel sounds and soft; Absent organomegaly or tenderness Extremities Exam Extremities exam: Present full ROM, normal capillary refill and normal inspec tion; Absent tenderness Neurological Exam Neurological exam: Present alert, altered and CN II-XII intact; Absent motor sensory deficit Psychiatric Psychiatric exam: Present normal affect and normal mood; Absent anxious or depressed Skin Skin exam: Present dry and intact Discharge Data Data Completed and Pending Labs on day of discharge: Labs from last 24 hours 09/21/22 04:40 Urine Color Yellow Urine Appearance Cloudy A Urine pH 6.0 Ur Specific [place] 1.009 Urine Protein Negative Urine Glucose (UA) Negative Urine Ketones Negative Urine Occult Blood Negative Urine Nitrate Pos A Urine Bilirubin Negative Urine Urobilinogen Negative Ur Leukocyte Esterase 500 A Urine RBC 24 H Urine WBC > 182 H Ur Squamous Epith Cells 7 H Urine Bacteria None Ur Culture Indicated? No Discharge Plan Patient/Caregiver Discharge Instructions Activity: increase activity as tolerated Diet: Consistent Carbohydrate Prescriptions: Continued pramipexole 0.25 mg tablet See Rx Instructions .ROUTE .COMPLEX Qty: 120 3RF Rx Instructions: 1-2 tabs QHS amitriptyline 50 mg tablet 50 mg tablet 50 mg PO QHS Qty: 90 3RF Rx Instructions: 1 po hs montelukast 10 mg tablet 10 mg PO QPM Qty: 90 0RF pravastatin 10 mg tablet 10 mg PO QDAY Qty: 90 3RF aspirin 81 mg tablet,delayed release (DR/EC) 81 mg PO QDAY acetaminophen 325 mg tablet 650 mg PO Q4H PRN (Reason: Fever Or Pain) Lactobacillus rhamnosus GG [Culturelle] 1 cap PO QDAY albuterol sulfate [ProAir HFA] 90 mcg/actuation HFA aerosol inhaler 2 puff INHALATION Q6H PRN (Reason: shortness of breath or wheezing) Qty: 8.5 6RF Trelegy Ellipta 200-62.5-25 mcg blister with device 1 inh inhalation Q24H Qty: 60 11RF Rx Instructions: Vigorously gargle, rinse, and spit after each use polyethylene glycol 3350 [Miralax] 17 gram/dose powder 4 g PO ONCE Qty: 510 2RF docusate sodium [Dulcolax Stool Softener (dss)] 100 mg capsule 100 mg PO BID Qty: 60 2RF losartan 25 mg Tablet 12.5 mg PO DAILY gabapentin 300 mg capsule 300 mg PO HS Follow Up Plan Follow up with: Rosaura Andrews ARNP [Primary Care Provider] - Patient Disposition: Xfer SNF Prognosis: Fair Rehab Potential: Fair I certify that the patient requires SNF services: Yes Overall status at discharge: patient is back to baseline Discharge Orders: Discharge Order (Routine); Ordered 09/21/22 Ordered By: Maximino CHEN VTE Deep Vein Thrombosis/Pulmonary Embolism Present on Admission: No
[2022-09-21] MEDS: ASPIRIN 81 MG TAB.CHEW PO SCH (10:07)
== END 2022-09-21 13:54 | DRG 884 ==
LOC: MEDSUR 13:01 → ED 13:01 → MEDSUR 20:50
PROVIDERS: ADMIT Internal Medicine; ATTEND Internal Medicine

== ENCOUNTER 2022-09-25 03:11 | Inpatient (IN) ==
[2022-09-25] MEDS ORDERED: LEVOFLOXACIN 750 MG/150 ML BAG IV ONE (03:20)
[2022-09-25] MEDS ORDERED: metroNIDAZOLE 500 MG/100 ML BAG IV ONE (03:23)
[2022-09-25] MEDS ORDERED: DEXAMETHASONE 10 MG/ML VIAL IV ONE (03:25)
[2022-09-25] MEDS: 0.9 % SODIUM CHLORIDE 1,000 ML IV SCH ×4 (04:20→07:29)
[2022-09-25] MEDS ORDERED: 0.9 % SODIUM CHLORIDE 1,000 ML IV ONE ×3 (04:36→04:39)
--- NOTE | 2022-09-25 04:39 | Emergency Department Note ---
Altered Mental Status HPI General Chief Complaint: Altered Mental Status Stated Complaint: UNRESPONSIVE Time Seen by Provider: 09/25/22 03:20 Mode of arrival: EMS History of Present Illness HPI Narrative: Narrative: This 81-year-old female was [facility] via [facility] for altered mental status. Her ex- states that she has been progressively going downhill for the last 3 weeks. She was recently admitted for period of 3 weeks here for. He states in the last 2 days she has become progressively weaker and weaker. Her usual state of health is being able to help bear weight to transfer from bed to wheelchair primarily due to MS. The [facility] stated that yesterday she had difficulty swallowing Tylenol and thought she was febrile but did not seek any evaluation at that time. Her past medical history is also positive for end-stage renal disease, asthma COPD, recurrent UTIs, DM 2. Related Data Home Medications Medication Instructions Recorded Confirmed acetaminophen 325 mg tablet 650 mg PO Q4H PRN Fever Or Pain 01/05/21 09/01/22 aspirin 81 mg tablet,delayed 81 mg PO QDAY 01/05/21 08/31/22 release Lactobacillus rhamnosus GG 1 cap PO QDAY 05/10/21 09/01/22 [Culturelle] gabapentin 300 mg capsule 300 mg PO HS 01/05/22 08/31/22 losartan 25 mg tablet 12.5 mg PO DAILY 08/31/22 09/01/22 Previous Rx's Medication Instructions Recorded pramipexole 0.25 mg tablet See Rx Instructions .Route 05/25/21 .COMPLEX #120 tabs Trelegy Ellipta 200 mcg-62.5 1 inh inhalation Q24H #60 ea 04/11/22 mcg-25 mcg powder for inhalation (ytfyjenlbqt-xyiugfdpy-kktlipvf) albuterol sulfate 90 mcg/actuation 2 puff inhalation Q6H PRN 04/11/22 aerosol inhaler (ProAir HFA) shortness of breath or wheezing #8.5 grams docusate sodium 100 mg capsule 100 mg PO BID #60 caps 05/22/22 (Dulcolax Stool Softener (docusate)) polyethylene glycol 3350 17 4 g PO ONCE #510 grams 05/22/22 gram/dose oral powder (Miralax) amitriptyline 50 mg tablet 50 mg PO QHS #90 tabs 06/19/22 montelukast 10 mg tablet 10 mg PO QPM #90 tabs 07/11/22 pravastatin 10 mg tablet 10 mg PO QDAY #90 tabs 07/11/22 Allergies Allergy/AdvReac Type Severity Reaction Status Date / Time Penicillins Allergy Unknown Unknown Verified 08/31/22 21:36 Sulfa (Sulfonamide Allergy Unknown Unknown Verified 08/31/22 21:36 Antibiotics) Review of Systems ROS ROS Narrative: Narrative: Limitations: ROS unobtainable due to patients medical condition [facility] Narrative Patient History Narrative: Narrative: Medical/Surgical/Family History All Active Problems (Updated 09/25/22 @ 06:32 by Duc Andrews MD) Sepsis (Acute) Gastroenteritis (Acute) Regular sinus tachycardia (Acute) Constipation (Acute) Asthma-COPD overlap syndrome (Chronic) Recurrent urinary tract infection (Acute) Muscle weakness (Acute) Dizziness (Acute) Dementia (Chronic) Chronic retention of urine (Chronic) Spinal stenosis in cervical region (Chronic) Hypomagnesemia (Chronic) Bilateral leg cramps (Chronic) Muscle pain (Chronic) Abnormal kidney function study (Chronic) Post-menopausal (Chronic) Dementia (Chronic) Hyperlipidemia (Chronic) Type 2 diabetes mellitus (Chronic) Risk for falls (Chronic) Peripheral vascular disease (Chronic) Hypertensive disorder (Chronic) Urine retention (Chronic) Bacteriuria (Chronic) Multiple sclerosis (Chronic) Restless leg syndrome (Chronic) Benign essential HTN (Chronic) Sensation of cold in lower extremity (Chronic) Candidal intertrigo (Chronic) Eczematous dermatitis (Chronic) Kidney disease, chronic, stage III (GFR 30-59 ml/min) (Chronic) Encounter for immunization (Chronic) Urinary frequency (Chronic) UTI (urinary tract infection) (Chronic) Lower extremity edema (Chronic) Discoloration of skin of toe (Chronic) History of seizures (Chronic 06/30/16) Asthma (Chronic) Hay fever (Chronic) Nervousness (Chronic) Medical History Abnormal kidney function study Asthma Asthma-COPD overlap syndrome Bacteriuria Benign essential HTN Bilateral leg cramps Candidal intertrigo Chronic retention of urine Dementia Discoloration of skin of toe Eczematous dermatitis Encounter for immunization Hay fever History of seizures (06/30/16) Life support to stop seizure Hyperlipidemia Hypertensive disorder Hypomagnesemia Kidney disease, chronic, stage III (GFR 30-59 ml/min) Lower extremity edema Multiple sclerosis Muscle pain Nervousness Peripheral vascular disease Post-menopausal Restless leg syndrome Risk for falls Sensation of cold in lower extremity Spinal stenosis in cervical region Type 2 diabetes mellitus Urinary frequency Urine retention UTI (urinary tract infection) Surgical History History of tonsillectomy and adenoidectomy Family History Grandmother Chronic mental illness Maternal Mother , Age 89 Heart disease Essential hypertension Social History Smoking Status: Former smoker Alcohol Intake Frequency: does not drink Substance Use: does not use Exam Narrative Narrative: Narrative: General unresponsive except to painful stimuli. GCS = 8 (). Skin: Feels warm, dry, negative exanthem, toes cold and ischemic. lungs: Clear to auscultation equal bilaterally. CV: Regular rate and rhythm without murmurs clicks rubs or gallops. Abdomen: Obese, no ascites, hsmegaly, positive constipation felt in the descending colon. Course Vital Signs Vital signs: Vital Signs Temperature 102.1 F H 09/25/22 03:14 Pulse Rate 121 H 09/25/22 03:14 Respiratory Rate 38 H 09/25/22 03:14 Blood Pressure 91/49 09/25/22 03:14 Pulse Oximetry (%) 4 L 09/25/22 03:14 Oxygen Delivery Method Nasal Cannula 09/25/22 03:14 Temperature 101.7 F H 09/25/22 06:59 Pulse Rate 112 H 09/25/22 06:59 Respiratory Rate 31 H 09/25/22 06:59 Blood Pressure 72/39 09/25/22 06:59 Pulse Oximetry (%) 94 09/25/22 06:59 Oxygen Delivery Method Nasal Cannula 09/25/22 03:40 Oxygen Flow Rate (L/min) 4 09/25/22 03:40 MDM MDM Narrative Medical decision making narrative: Narrative: Discussed the case with the patient's ex- with whom she most recently was living before being admitted this last time and going to the [facility]. He states that she would not want to be intubated or coded, although he did not opt for comfort measures only. I described for him the patient's condition as septic, in shock, and near . He expressed understanding. Patient's first test back was a lactate of 8.6 with a pH of 7.28 PCO2 of 25.1 and a bicarb of 11.9. Patient already had received a liter of fluids from EMS. We had started normal saline at 250 cc an hour we gave a second liter bolus of fluids. Orders were given to keep her systolic pressure above 90. The patient was treated with Levaquin 750 mg IV and Flagyl 500 mg IV. She has an allergy to penicillins and sulfa antibiotics. She was also given Decadron 10 mg IV in case of gram-negative sepsis. Her latest pressure is 102S after the 2 L of fluid. Patient's chest x-ray showed some perihilar interstitial infiltrates possibly suggestive of a pneumonia. Her urine is infected with leukocytes esterase and pyuria. The hospitalist was contacted and agreed to admit the patient. Patient was reassessed approximately 07 100 and sounds like she is in early pulmonary edema with hypotension. Patient was started on a Levophed drip and I communicated with the family her dire circumstances and explained that she will probably not survive the day. The patient's family expressed understanding and appreciation for our efforts. Sepsis Sepsis Identified: Yes Time Zero: 0445 Lab Data 09/25/22 04:16 09/25/22 04:16 Labs: Lab Results 09/25/22 09/25/22 09/25/22 Range/Units 03:31 04:15 04:16 WBC 14.1 H (4.5-11.0) K/mcL RBC 5.53 H (3.59-5.38) M/mcL Hgb 15.3 (11.2-15.7) g/dL Hct 48.7 H (34.1-44.9) % MCV 88.1 (80.0-100.0) fL MCH 27.7 (26.0-34.0) pg MCHC 31.4 (31.0-36.0) g/dL RDW 15.0 H (11.5-14.5) % Plt Count 283 (140-440) K/mcL MPV 11.4 (8.8-12.5) fL Immature Gran % (Auto) 0.7 H (0.0-0.5) % Neut % (Auto) 90.4 H (38.0-78.0) % Lymph % (Auto) 3.8 L (15.5-49.0) % [place] % (Auto) 4.1 (1.0-12.0) % Eos % (Auto) 0.6 (0.0-7.0) % Baso % (Auto) 0.4 (0.0-2.0) % Lymph # (Auto) 0.54 L (1.50-4.80) K/mcL [place] # (Auto) 0.58 (0.10-0.90) K/mcL Eos # (Auto) 0.09 (0.00-0.70) K/mcL Baso # (Auto) 0.06 (0.00-0.30) K/mcL Immature Gran # 0.10 H (0.00-0.05) K/mcl Absolute Neutrophils 12.76 H (1.80-8.00) K/mcL Differential Comment D-Dimer (0.27-0.50) ug/mL POC VBG pH 7.28 L (7.32-7.42) POC VBG pCO2 at Temp 25.1 L (41-51) POC VBG pO2 39 (25-40) POC VBG HCO3 11.9 L (24-28) POC VBG Total CO2 13.0 L (25-29) POC Venous O2 Sat 68.0 (40-70) POC VBG Base Excess -15.0 L (-2-2) VBG Lactic Acid 8.6 H* (0.5-2) Sodium Potassium Chloride Carbon Dioxide Anion Gap BUN Creatinine GFR Calculation Glucose Calcium Total Bilirubin AST ALT Alkaline Phosphatase Ammonia (11-51) umol/L Total Protein Albumin Globulin Albumin/Globulin Ratio Urine Color Yellow-brown Urine Appearance Turbid A (Clear) Urine pH 5.0 (5.0-9.0) Ur Specific [place] 1.014 (1.000-1.035) Urine Protein 100 A (Negative) mg/dL Urine Glucose (UA) Negative (Negative) mg/dL Urine Ketones Negative (Negative) mg/dL Urine Occult Blood 0.03 (Negative) mg/dL Urine Nitrate Negative (Negative) Urine Bilirubin Negative (Negative) mg/dL Urine Urobilinogen Negative mg/dL Ur Leukocyte Esterase 250 A (Negative) /uL Urine RBC 55 H (0-3) /hpf Urine WBC > 182 H (0-4) /hpf Ur Squamous Epith Cells 4 (0-4) /hpf Urine Bacteria Many A (0) /hpf Urine Mucus Many A (None) /hpf Ur Culture Indicated? yes POC Troponin I (0.00-0.08) 09/25/22 09/25/22 09/25/22 Range/Units 04:16 04:16 04:21 WBC (4.5-11.0) K/mcL RBC (3.59-5.38) M/mcL Hgb (11.2-15.7) g/dL Hct (34.1-44.9) % MCV (80.0-100.0) fL MCH (26.0-34.0) pg MCHC (31.0-36.0) g/dL RDW (11.5-14.5) % Plt Count (140-440) K/mcL MPV (8.8-12.5) fL Immature Gran % (Auto) (0.0-0.5) % Neut % (Auto) (38.0-78.0) % Lymph % (Auto) (15.5-49.0) % [place] % (Auto) (1.0-12.0) % Eos % (Auto) (0.0-7.0) % Baso % (Auto) (0.0-2.0) % Lymph # (Auto) (1.50-4.80) K/mcL [place] # (Auto) (0.10-0.90) K/mcL Eos # (Auto) (0.00-0.70) K/mcL Baso # (Auto) (0.00-0.30) K/mcL Immature Gran # (0.00-0.05) K/mcl Absolute Neutrophils (1.80-8.00) K/mcL Differential Comment D-Dimer (0.27-0.50) ug/mL POC VBG pH (7.32-7.42) POC VBG pCO2 at Temp (41-51) POC VBG pO2 (25-40) POC VBG HCO3 (24-28) POC VBG Total CO2 (25-29) POC Venous O2 Sat (40-70) POC VBG Base Excess (-2-2) VBG Lactic Acid (0.5-2) Sodium TNP Potassium TNP Chloride TNP Carbon Dioxide TNP Anion Gap TNP BUN TNP Creatinine TNP GFR Calculation TNP Glucose TNP Calcium TNP Total Bilirubin TNP AST TNP ALT TNP Alkaline Phosphatase TNP Ammonia 38 (11-51) umol/L Total Protein TNP Albumin TNP Globulin TNP Albumin/Globulin Ratio TNP Urine Color Urine Appearance (Clear) Urine pH (5.0-9.0) Ur Specific [place] (1.000-1.035) Urine Protein (Negative) mg/dL Urine Glucose (UA) (Negative) mg/dL Urine Ketones (Negative) mg/dL Urine Occult Blood (Negative) mg/dL Urine Nitrate (Negative) Urine Bilirubin (Negative) mg/dL Urine Urobilinogen mg/dL Ur Leukocyte Esterase (Negative) /uL Urine RBC (0-3) /hpf Urine WBC (0-4) /hpf Ur Squamous Epith Cells (0-4) /hpf Urine Bacteria (0) /hpf Urine Mucus (None) /hpf Ur Culture Indicated? POC Troponin I 4.08 H (0.00-0.08) 09/25/22 Range/Units 05:02 WBC (4.5-11.0) K/mcL RBC (3.59-5.38) M/mcL Hgb (11.2-15.7) g/dL Hct (34.1-44.9) % MCV (80.0-100.0) fL MCH (26.0-34.0) pg MCHC (31.0-36.0) g/dL RDW (11.5-14.5) % Plt Count (140-440) K/mcL MPV (8.8-12.5) fL Immature Gran % (Auto) (0.0-0.5) % Neut % (Auto) (38.0-78.0) % Lymph % (Auto) (15.5-49.0) % [place] % (Auto) (1.0-12.0) % Eos % (Auto) (0.0-7.0) % Baso % (Auto) (0.0-2.0) % Lymph # (Auto) (1.50-4.80) K/mcL [place] # (Auto) (0.10-0.90) K/mcL Eos # (Auto) (0.00-0.70) K/mcL Baso # (Auto) (0.00-0.30) K/mcL Immature Gran # (0.00-0.05) K/mcl Absolute Neutrophils (1.80-8.00) K/mcL Differential Comment D-Dimer 6.22 H (0.27-0.50) ug/mL POC VBG pH (7.32-7.42) POC VBG pCO2 at Temp (41-51) POC VBG pO2 (25-40) POC VBG HCO3 (24-28) POC VBG Total CO2 (25-29) POC Venous O2 Sat (40-70) POC VBG Base Excess (-2-2) VBG Lactic Acid (0.5-2) Sodium Potassium Chloride Carbon Dioxide Anion Gap BUN Creatinine GFR Calculation Glucose Calcium Total Bilirubin AST ALT Alkaline Phosphatase Ammonia (11-51) umol/L Total Protein Albumin Globulin Albumin/Globulin Ratio Urine Color Urine Appearance (Clear) Urine pH (5.0-9.0) Ur Specific [place] (1.000-1.035) Urine Protein (Negative) mg/dL Urine Glucose (UA) (Negative) mg/dL Urine Ketones (Negative) mg/dL Urine Occult Blood (Negative) mg/dL Urine Nitrate (Negative) Urine Bilirubin (Negative) mg/dL Urine Urobilinogen mg/dL Ur Leukocyte Esterase (Negative) /uL Urine RBC (0-3) /hpf Urine WBC (0-4) /hpf Ur Squamous Epith Cells (0-4) /hpf Urine Bacteria (0) /hpf Urine Mucus (None) /hpf Ur Culture Indicated? POC Troponin I (0.00-0.08) ED POC Tests ED POC Tests: YANG - Influenza A Negative YANG - Influenza B Negative YANG - SARS Antigen Negative Discharge Plan Patient/Caregiver Discharge Instructions Pt seen by PANEL MACHINE SETTER/PA only: No Clinical Impression: Sepsis Patient Disposition: Xfer As Inpt ([facility]) Follow up with: Rosaura Andrews ARNP [Primary Care Provider] - Prescriptions: No Action pramipexole 0.25 mg tablet See Rx Instructions .ROUTE .COMPLEX Qty: 120 3RF Rx Instructions: 1-2 tabs QHS amitriptyline 50 mg tablet 50 mg tablet 50 mg PO QHS Qty: 90 3RF Rx Instructions: 1 po hs montelukast 10 mg tablet 10 mg PO QPM Qty: 90 0RF pravastatin 10 mg tablet 10 mg PO QDAY Qty: 90 3RF aspirin 81 mg tablet,delayed release (DR/EC) 81 mg PO QDAY acetaminophen 325 mg tablet 650 mg PO Q4H PRN (Reason: Fever Or Pain) Lactobacillus rhamnosus GG [Culturelle] 1 cap PO QDAY albuterol sulfate [ProAir HFA] 90 mcg/actuation HFA aerosol inhaler 2 puff INHALATION Q6H PRN (Reason: shortness of breath or wheezing) Qty: 8.5 6RF Trelegy Ellipta 200-62.5-25 mcg blister with device 1 inh inhalation Q24H Qty: 60 11RF Rx Instructions: Vigorously gargle, rinse, and spit after each use polyethylene glycol 3350 [Miralax] 17 gram/dose powder 4 g PO ONCE Qty: 510 2RF docusate sodium [Dulcolax Stool Softener (dss)] 100 mg capsule 100 mg PO BID Qty: 60 2RF losartan 25 mg Tablet 12.5 mg PO DAILY gabapentin 300 mg capsule 300 mg PO HS
[2022-09-25 05:12] LABS: Basophils # (Auto) 0.06 K/mcL (0.00-0.30); Basophils % (Auto) 0.4 % (0.0-2.0); Eosinophils # (Auto) 0.09 K/mcL (0.00-0.70); Eosinophils % (Auto) 0.6 % (0.0-7.0); Hematocrit 48.7 % (34.1-44.9); Hemoglobin 15.3 g/dL (11.2-15.7); Lymphocytes # (Auto) 0.54 K/mcL (1.50-4.80); Lymphocytes % (Auto) 3.8 % (15.5-49.0); Mean Cell Volume 88.1 fL (80.0-100.0); Mean Corpuscular HGB Conc 31.4 g/dL (31.0-36.0); Mean Platelet Volume 11.4 fL (8.8-12.5); Monocytes # (Auto) 0.58 K/mcL (0.10-0.90); Monocytes % (Auto) 4.1 % (1.0-12.0); Neutrophils % (Auto) 90.4 % (38.0-78.0); Platelet Count 283 K/mcL (140-440); RBC 5.53 M/mcL (3.59-5.38); WBC 14.1 K/mcL (4.5-11.0)
[2022-09-25] MEDS ORDERED: ACETAMINOPHEN 1,000 MG/100 ML BAG IV ONE (05:12)
[2022-09-25 05:23] LABS: Appearance,Urine TURBID (Clear); Bacteria,Urine MANY /hpf (0); Bilirubin,Urine Negative (Negative); Color,Urine YELLOW-BROWN; Culture Indicated,Urine yes; Glucose,Urine (UA) Negative (Negative); Ketones,Urine Negative (Negative); Leukocyte Esterase,Urine 250 /uL (Negative); Mucus,Urine MANY /hpf; Nitrate,Urine Negative (Negative); Protein,Urine 100 mg/dL (Negative); Specific Gravity,Urine 1.014 (1.000-1.035); Urine Blood 0.03 mg/dL (Negative); Urine RBC 55 /hpf (0-3); Urine Squamous Epithelial Cell 4 /hpf (0-4); Urine WBC > 182 /hpf (0-4); Urobilinogen,Urine Negative
[2022-09-25] MEDS ORDERED: 0.9 % SODIUM CHLORIDE 1,000 ML IV SCH (06:30)
[2022-09-25] MEDS ORDERED: NOREPINEPHRINE BITARTRATE 8 MG in 0.9 % SODIUM CHLORIDE 242 ML IV SCH (07:15)
[2022-09-25] MEDS ORDERED: 0.9 % SODIUM CHLORIDE 250 ML IV SCH (07:15)
--- NOTE | 2022-09-25 07:22 | EKG ---
[facility] Test Date: 2022-09-25 Pat Name: Sharon Pierce Department: ED Room: Gender: Female Microwave Technician: GARFIELD : 1940 Requested By: Duc Andrews Order Number: [id number] Reading MD: Gavin Chapin Measurements Intervals [place] Rate: 123 P: 61 NC: 132 QRS: 47 QRSD: 120 T: -62 QT: 323 QTc: 464 Interpretive Statements Sinus tachycardia Right bundle branch block Electronically Signed On 09-25-2022 7:21:26 PST by Gavin Chapin /store/[email or web address]/[id number]
[2022-09-25] MEDS ORDERED: morphine 4 MG/ML VIAL IV PRN (07:59)
[2022-09-25] MEDS ORDERED: ONDANSETRON 4 MG/2 ML VIAL IV PRN (07:59)
[2022-09-25] MEDS ORDERED: LORazepam 2 MG/ML VIAL IV PRN (08:04)
--- NOTE | 2022-09-25 08:28 | Internal Med History&Physical ---
HPI History of Present Illness Patient information: Note initiated : 09/25/22 at 8:21 am Service Date, if different from initiated Date: [] Patient: Sharon Pierce a 81 y/o F admitted on for UNRESPONSIVE. Chief Complaint: [] Chief complaint: altered mentation History of present illness: Ms. Pierce is a 81 year old F with dementia and Parkinson's. She was recently discharged from this facility following a three week admission for asthma/copd and she was difficult to place in SNF. She was in SNF for only a few days and sent back with AMS. Workup in the ER is notable for SBP 60, Lactic acid 8.6, leukocytosis, positive UA. Chemistry is pending. Trop is 4 (ULN 0.08). D Dimer is also elevated. She was given 2L IVF but still required levophed. She was also given levofloxacin and metronidazole. Pt was laying in bed moaning, eyes closed. Daughter and are at bedside. We discussed goals of care and family elected for comfort measures only. Constitutional Constitutional: Present as per HPI Cardiovascular Cardiovascular: Present as per HPI Respiratory Respiratory: Present as per HPI Gastrointestinal Gastrointestinal: Present as per HPI Genitourinary Genitourinary: Present as per HPI Neurological Neurological: Present as per HPI PFSH PFSH All Active Problems (Updated 09/25/22 @ 06:32 by Duc Andrews MD) Sepsis (Acute) Gastroenteritis (Acute) Regular sinus tachycardia (Acute) Constipation (Acute) Asthma-COPD overlap syndrome (Chronic) Recurrent urinary tract infection (Acute) Muscle weakness (Acute) Dizziness (Acute) Dementia (Chronic) Chronic retention of urine (Chronic) Spinal stenosis in cervical region (Chronic) Hypomagnesemia (Chronic) Bilateral leg cramps (Chronic) Muscle pain (Chronic) Abnormal kidney function study (Chronic) Post-menopausal (Chronic) Dementia (Chronic) Hyperlipidemia (Chronic) Type 2 diabetes mellitus (Chronic) Risk for falls (Chronic) Peripheral vascular disease (Chronic) Hypertensive disorder (Chronic) Urine retention (Chronic) Bacteriuria (Chronic) Multiple sclerosis (Chronic) Restless leg syndrome (Chronic) Benign essential HTN (Chronic) Sensation of cold in lower extremity (Chronic) Candidal intertrigo (Chronic) Eczematous dermatitis (Chronic) Kidney disease, chronic, stage III (GFR 30-59 ml/min) (Chronic) Encounter for immunization (Chronic) Urinary frequency (Chronic) UTI (urinary tract infection) (Chronic) Lower extremity edema (Chronic) Discoloration of skin of toe (Chronic) History of seizures (Chronic 06/30/16) Asthma (Chronic) Hay fever (Chronic) Nervousness (Chronic) Medical History Abnormal kidney function study Asthma Asthma-COPD overlap syndrome Bacteriuria Benign essential HTN Bilateral leg cramps Candidal intertrigo Chronic retention of urine Dementia Discoloration of skin of toe Eczematous dermatitis Encounter for immunization Hay fever History of seizures (06/30/16) Life support to stop seizure Hyperlipidemia Hypertensive disorder Hypomagnesemia Kidney disease, chronic, stage III (GFR 30-59 ml/min) Lower extremity edema Multiple sclerosis Muscle pain Nervousness Peripheral vascular disease Post-menopausal Restless leg syndrome Risk for falls Sensation of cold in lower extremity Spinal stenosis in cervical region Type 2 diabetes mellitus Urinary frequency Urine retention UTI (urinary tract infection) Surgical History History of tonsillectomy and adenoidectomy Family History Grandmother Chronic mental illness Maternal Mother , Age 89 Heart disease Essential hypertension Social History marital status: education level: high school occupational status: retired occupation: Office Work smoking status: Former smoker quit date: 07/30/92 pack-years: 30 smoking status stop date: 07/30/93 alcohol intake frequency: does not drink substance use type: does not use additional history: 3 children MEDS/ALLERGIES Home Medications and Allergies Home Medications Medication Instructions Recorded Confirmed Type acetaminophen 325 mg tablet 650 mg PO Q4H PRN Fever Or Pain 01/05/21 09/01/22 History aspirin 81 mg tablet,delayed 81 mg PO QDAY 01/05/21 08/31/22 History release Lactobacillus rhamnosus GG 1 cap PO QDAY 05/10/21 09/01/22 History [Culturelle] pramipexole 0.25 mg tablet See Rx Instructions .Route 05/25/21 08/31/22 Rx .COMPLEX #120 tabs gabapentin 300 mg capsule 300 mg PO HS 01/05/22 08/31/22 History Trelegy Ellipta 200 mcg-62.5 1 inh inhalation Q24H #60 ea 04/11/22 08/31/22 Rx mcg-25 mcg powder for inhalation (kiazxpyibid-tjavvwwjo-uyfhnfop) albuterol sulfate 90 mcg/actuation 2 puff inhalation Q6H PRN 04/11/22 08/31/22 Rx aerosol inhaler (ProAir HFA) shortness of breath or wheezing #8.5 grams docusate sodium 100 mg capsule 100 mg PO BID #60 caps 05/22/22 08/31/22 Rx (Dulcolax Stool Softener (docusate)) polyethylene glycol 3350 17 4 g PO ONCE #510 grams 05/22/22 09/01/22 Rx gram/dose oral powder (Miralax) amitriptyline 50 mg tablet 50 mg PO QHS #90 tabs 06/19/22 08/31/22 Rx montelukast 10 mg tablet 10 mg PO QPM #90 tabs 07/11/22 08/31/22 Rx pravastatin 10 mg tablet 10 mg PO QDAY #90 tabs 07/11/22 08/31/22 Rx losartan 25 mg tablet 12.5 mg PO DAILY 08/31/22 09/01/22 History Allergies Allergy/AdvReac Type Severity Reaction Status Date / Time Penicillins Allergy Unknown Unknown Verified 08/31/22 21:36 Sulfa (Sulfonamide Allergy Unknown Unknown Verified 08/31/22 21:36 Antibiotics) EXAM Constitutional Vitals: Temp Pulse Resp BP Pulse Ox O2 Del Method O2 Flow Rate 101.0 F H 121 H 29 H 88/51 93 Nasal Cannula 4 09/25/22 07:47 09/25/22 07:47 09/25/22 07:47 09/25/22 07:46 09/25/22 07:47 09/25/22 03:40 09/25/22 03:40 General appearance: average body habitus Head Head exam: Present atraumatic ENT ENT exam: Present mucous membranes dry Respiratory Respiratory exam: Present normal respiratory exam Cardiovascular Cardiovascular exam: Present normal rate and rhythm Additional comments: no LE edeam, distal LE cold, mottled GI/Abdominal GI/Abdominal exam: Present normal bowel sounds and soft; Absent distended Neurological Exam Additional comments: laying in bed moaning DATA Data Completed and Pending Labs: Labs from last 24 hours 09/25/22 09/25/22 09/25/22 06:51 05:02 04:21 WBC RBC Hgb Hct MCV MCH MCHC RDW Plt Count MPV Immature Gran % (Auto) Neut % (Auto) Lymph % (Auto) Coleman % (Auto) Eos % (Auto) Baso % (Auto) Lymph # (Auto) Coleman # (Auto) Eos # (Auto) Baso # (Auto) Immature Gran # Absolute Neutrophils Differential Comment D-Dimer 6.22 H POC VBG pH POC VBG pCO2 at Temp POC VBG pO2 POC VBG HCO3 POC VBG Total CO2 POC Venous O2 Sat POC VBG Base Excess VBG Lactic Acid 6.9 H* Sodium Potassium Chloride Carbon Dioxide Anion Gap BUN Creatinine GFR Calculation Glucose Calcium Total Bilirubin AST ALT Alkaline Phosphatase Ammonia Total Protein Albumin Globulin Albumin/Globulin Ratio Urine Color Urine Appearance Urine pH Ur Specific [place] Urine Protein Urine Glucose (UA) Urine Ketones Urine Occult Blood Urine Nitrate Urine Bilirubin Urine Urobilinogen Ur Leukocyte Esterase Urine RBC Urine WBC Ur Squamous Epith Cells Urine Bacteria Urine Mucus Ur Culture Indicated? POC Troponin I 4.08 H 09/25/22 09/25/22 09/25/22 04:16 04:16 04:16 WBC 14.1 H RBC 5.53 H Hgb 15.3 Hct 48.7 H MCV 88.1 MCH 27.7 MCHC 31.4 RDW 15.0 H Plt Count 283 MPV 11.4 Immature Gran % (Auto) 0.7 H Neut % (Auto) 90.4 H Lymph % (Auto) 3.8 L Coleman % (Auto) 4.1 Eos % (Auto) 0.6 Baso % (Auto) 0.4 Lymph # (Auto) 0.54 L Coleman # (Auto) 0.58 Eos # (Auto) 0.09 Baso # (Auto) 0.06 Immature Gran # 0.10 H Absolute Neutrophils 12.76 H Differential Comment D-Dimer POC VBG pH POC VBG pCO2 at Temp POC VBG pO2 POC VBG HCO3 POC VBG Total CO2 POC Venous O2 Sat POC VBG Base Excess VBG Lactic Acid Sodium TNP Potassium TNP Chloride TNP Carbon Dioxide TNP Anion Gap TNP BUN TNP Creatinine TNP GFR Calculation TNP Glucose TNP Calcium TNP Total Bilirubin TNP AST TNP ALT TNP Alkaline Phosphatase TNP Ammonia 38 Total Protein TNP Albumin TNP Globulin TNP Albumin/Globulin Ratio TNP Urine Color Urine Appearance Urine pH Ur Specific [place] Urine Protein Urine Glucose (UA) Urine Ketones Urine Occult Blood Urine Nitrate Urine Bilirubin Urine Urobilinogen Ur Leukocyte Esterase Urine RBC Urine WBC Ur Squamous Epith Cells Urine Bacteria Urine Mucus Ur Culture Indicated? POC Troponin I 09/25/22 09/25/22 04:15 03:31 WBC RBC Hgb Hct MCV MCH MCHC RDW Plt Count MPV Immature Gran % (Auto) Neut % (Auto) Lymph % (Auto) Coleman % (Auto) Eos % (Auto) Baso % (Auto) Lymph # (Auto) Coleman # (Auto) Eos # (Auto) Baso # (Auto) Immature Gran # Absolute Neutrophils Differential Comment D-Dimer POC VBG pH 7.28 L POC VBG pCO2 at Temp 25.1 L POC VBG pO2 39 POC VBG HCO3 11.9 L POC VBG Total CO2 13.0 L POC Venous O2 Sat 68.0 POC VBG Base Excess -15.0 L VBG Lactic Acid 8.6 H* Sodium Potassium Chloride Carbon Dioxide Anion Gap BUN Creatinine GFR Calculation Glucose Calcium Total Bilirubin AST ALT Alkaline Phosphatase Ammonia Total Protein Albumin Globulin Albumin/Globulin Ratio Urine Color Yellow-brown Urine Appearance Turbid A Urine pH 5.0 Ur Specific [place] 1.014 Urine Protein 100 A Urine Glucose (UA) Negative Urine Ketones Negative Urine Occult Blood 0.03 Urine Nitrate Negative Urine Bilirubin Negative Urine Urobilinogen Negative Ur Leukocyte Esterase 250 A Urine RBC 55 H Urine WBC > 182 H Ur Squamous Epith Cells 4 Urine Bacteria Many A Urine Mucus Many A Ur Culture Indicated? yes POC Troponin I A/P Assessment and plan (1) Sepsis: Assessment and plan: - urinary source most likely - family has elected comfort measures only Status: Acute Sepsis Sepsis Identified: Yes Time Zero: 0800 Time Spent With Patient Time: Total time spent is greater than 50% in coordination of care (as documented) at patient's floor/unit and/or counseling patient: Initial: Total time with patient: 40 - 54 minutes
--- NOTE | 2022-09-25 08:44 | XRay Report ---
CLINICAL INFORMATION: Unresponsive COMPARISON: 09/19/2022 TECHNIQUE: Portable FINDINGS: The heart size, mediastinum and pulmonary vessels are unremarkable. The lungs are clear. There are no effusions. The bones and soft tissues are within normal limits. IMPRESSION: Normal chest. Interpreted and Authenticated by: Milo Ulloa 09/25/22
[2022-09-25 09:31] LABS: ALT/SGPT 42 U/L (<40); AST/SGOT 113 U/L (<32); Albumin/Globulin Ratio 1.2 (1.0-2.3); Alkaline Phosphatase 73 U/L (39-117); Bilirubin,Total 1.1 mg/dL (0.1-1.0); Blood Urea Nitrogen 46 mg/dL (8-23); Calcium 7.5 mg/dL (8.6-10.4); Carbon Dioxide 10 mmol/L (22-30); Chloride 110 mmol/L (96-108); Globulin 2.6 gm/dL (2.2-3.7); Glomerular Filtration Rate 14; Glucose 168 mg/dL (70-105)
--- NOTE | 2022-09-25 10:46 | Death Note ---
Discharge Sum: Prov Provider Patient information: Note initiated : 09/25/22 at 10:41 am Service Date, if different from initiated Date: [] Patient: Sharon Pierce 81 y/o F admitted on 09/25/22 for UNRESPONSIVE. Chief Complaint: [] Primary care physician: Rosaura Andrews Admitting clinician: eddie gutierrez Attending physician on admission: eddie gutierrez Pronouncing clinician: eddie gutierrez Discharge Sum: Diag Contributing Factors (1) Sepsis: Discharge Sum: Summary Date and Time Date of admission: 09/25/22 08:39 Date of : 09/25/22 Time of : 09:43 Summary Details: 81 yo female with dementia and parkinson's presented septic with SBP 60, lactic acid 8.6, leukocytosis, positive UA. In the ER she was bolused 2L IVF, started on levophed and antibiotics. At the time of admission and daughter at bedside elected comfort measures. She was admitted to the hospital with comfort measures. She was pronounced at approximately 9:30 am. Family was at bedside. Additional Data Confirmation of as documented by pronouncing clinician: no pulse, no respirations, no heart sounds and pupils fixed and dilated Family: at bedside Attending physician: Eddie Gutierrez MD Was code activated?: No Autopsy requested?: No Advance directives?: Yes Hospice patient?: No
[2022-09-25] MEDS ORDERED: 0.9 % SODIUM CHLORIDE 10 ML SYRINGE IV SCH (14:00)
== END 2022-09-25 11:40 | disposition expired | DRG 871 ==
LOC: ED 03:11 → MEDSUR 08:39
PROVIDERS: ADMIT Internal Medicine; ATTEND Internal Medicine